=== PATIENT | male | born 1970 | race Caucasian/White ===

== ENCOUNTER 2018-03-15 18:22 | Emergency (ER) | END 2018-03-15 23:40 | disposition home or self-care (01) ==

== ENCOUNTER 2018-04-14 14:50 | Emergency (ER) | END 2018-04-14 19:29 | disposition home or self-care (01) ==

== ENCOUNTER 2018-05-30 15:15 | Emergency (ER) | END 2018-05-30 20:38 | disposition home or self-care (01) ==

== ENCOUNTER 2019-01-28 15:52 | Inpatient (IN) | payer MEDICARE, OTHER ==
[~2019-01-28] VITALS: Ht 175.3 cm; Wt 62.6 kg
[~2019-01-28 15:52] MED LIST: AMIT10TA6 PO; BACL20TA PO; CLON-379 PO; DIAZ5TAB4 PO; DIC20 PO; FOLI-49 PO; METH150T PO; MIDO5TAB PO; NALO25TA PO; ONDA4TAB8 PO; PLEC3TAB PO; PREG50CA PO; TIZA4TAB PO
--- NOTE | 2019-01-28 16:20 | ERD ---
ER Documentation Chief Complaint Chief Complaint chronic mid abdominal pain cramping HPI 48-year-old male with paraplegia urostomy presenting for acute on chronic abdominal pain. He states that he is having burning pain in his abdomen and his back. Usually when this happens, he has a UTI. He was recently hospitalized last month for a UTI at [facility]. His primary care doctor is Dr. Barnett. No associated fever, chills, nausea, vomiting, diarrhea. He does have more cloudy urine than usual. His pain is a 9 out of 10, all over his body, with no alleviating or exacerbating factors. ROS All systems reviewed and are negative except as per history of present illness. Medications Home Meds Reported Medications Amitriptyline Hcl* (Amitriptyline Hcl*) 10 Mg Tablet, 30 MG PO QHS, #60 TAB 01/28/19 Amitriptyline Hcl* (Amitriptyline Hcl*) 10 Mg Tablet, 10 MG PO QAM, #30 TAB 01/28/19 Promethazine Hcl* (Phenergan*) 25 Mg Tablet, 25 MG PO QHS, TAB 01/28/19 Midodrine* (Midodrine*) 5 Mg Tablet, 5 MG PO DAILY, TAB 01/28/19 Clonidine Hcl* (Clonidine Hcl*) 0.2 Mg Tablet, 0.2 MG PO Q8H, TAB 01/28/19 Tizanidine Hcl* (Tizanidine Hcl*) 4 Mg Capsule, 4 MG PO Q8H PRN for SPASTICITY, CAP 01/28/19 Pantoprazole* (Pantoprazole*) 40 Mg Tablet.dr, 40 MG PO AC BREAKFAST, TAB 01/28/19 Plecanatide (Trulance) 3 Mg Tablet, 3 MG PO DAILY, TAB 01/28/19 Hydromorphone Hcl* (Dilaudid*) 4 Mg Tablet, 4 MG PO Q6H PRN for PAIN, TAB 01/28/19 Diazepam* (Diazepam*) 5 Mg Tablet, 5 MG PO QID, TAB 01/28/19 Ondansetron Hcl* (Zofran*) 4 Mg Tab, 4 MG PO NEEDED PRN for NAUSEA AND OR V OMITING, TAB 01/28/19 Discontinued Reported Medications Plecanatide (Trulance) 3 Mg Tablet, 3 MG PO DAILY, TAB 05/30/18 Naloxegol Oxalate (Movantik) 25 Mg Tablet, 25 MG PO DAILY, TAB 04/14/18 Tizanidine Hcl* (Tizanidine Hcl*) 4 Mg Tablet, 4 MG PO Q8H PRN for SPASTICITY, TAB 03/15/18 Clonidine Hcl* (Clonidine Hcl*) 0.1 Mg Tab, 0.1 MG PO TID, TAB 03/15/18 Folic Acid* (Folic Acid*) 1 Mg Tablet, 1 MG PO DAILY, TAB 03/15/18 Diazepam* (Diazepam*) 5 Mg Tablet, 5 MG PO QID, TAB TAKE 1 OR 2 TAB 03/15/18 Amitriptyline Hcl* (Amitriptyline Hcl*) 10 Mg Tablet, 30 MG PO QHS, #60 TAB 03/15/18 Amitriptyline Hcl* (Amitriptyline Hcl*) 10 Mg Tablet, 10 MG PO QAM, #30 TAB 03/15/18 Pregabalin* (Lyrica*) 50 Mg Capsule, 50 MG PO TID, CAP 03/15/18 Ondansetron Hcl* (Zofran*) 4 Mg Tablet, 4 MG PO Q8, TAB 03/15/18 Dicyclomine HCl (Dicyclomine HCl) 20 Mg Tablet, 20 MG PO Q6H 03/15/18 Midodrine* (Midodrine*) 5 Mg Tablet, 10 MG PO TID, TAB 03/15/18 Baclofen* (Baclofen*) 20 Mg Tablet, 20 MG PO Q8, TAB 03/15/18 Methylnaltrexone [place] (Relistor) 150 Mg Tablet, 600 MG PO DAILY, TAB TAKE IF MOVANTIK DOESN'T HELP 03/15/18 Allergies Allergies: Coded Allergies: metoclopramide HCl (Verified Allergy, Severe, 01/28/19) panic attack PMhx/Soc History of Surgery: Yes (NECK FUSION, UROSTOMY, BLADDER AUGMENTATION, LEFT HIP, RIGHT FEMUR SX) Anesthesia Reaction: No Hx Neurological Disorder: Yes (QUADRAPLAGIA) Hx Respiratory Disorders: No Hx Cardiac Disorders: No Hx Psychiatric Problems: Yes (ANXIETY, DEPRESSION) Hx Miscellaneous Medical Probl: Yes Hx Alcohol Use: No Hx Substance Use: No Hx Tobacco Use: No FmHx Family History: No diabetes Physical Exam Vitals Vital Signs Date Temp Pulse Resp B/P (MAP) Pulse Ox O2 O2 Flow FiO2 Time Delivery Rate 01/28/19 76 19 144/91 98 Room Air 18:30 (108) 01/28/19 98.1 88 20 145/94 99 15:57 (111) Physical Exam Const: Appears to be in distress secondary to pain, nontoxic Head: Atraumatic Eyes: Normal Conjunctiva ENT: Normal External Ears, Nose and Mouth. Neck: Full range of motion. No meningismus. Resp: Clear to auscultation bilaterally Cardio: Regular rate and rhythm, no murmurs Abd: Colostomy in the left lower quadrant with brown stool. Urostomy in the right lower quadrant, no surrounding erythema, draining clear yellow urine with sediment. Soft, non tender, non distended. Normal bowel sounds Skin: No petechiae or rashes Back: No midline or flank tenderness Ext: No cyanosis, or edema Neur: Awake and alert Psych: Normal Mood and Affect Result Diagram: 01/28/19 1650 01/28/19 1650 Results 24 hrs Laboratory Tests Test 01/28/19 16:50 01/28/19 18:07 White Blood Count 5.3 10^3/ul Red Blood Count 4.17 10^6/ul Hemoglobin 12.3 g/dl Hematocrit 38.0 % Mean Corpuscular Volume 91.1 fl Mean Corpuscular Hemoglobin 29.5 pg Mean Corpuscular Hemoglobin Concent 32.4 g/dl Red Cell Distribution Width 14.9 % Platelet Count 185 10^3/UL Mean Platelet Volume 10.5 fl Immature Granulocytes % 0.400 % Neutrophils % 62.9 % Lymphocytes % 24.0 % Monocytes % 11.2 % Eosinophils % 0.9 % Basophils % 0.6 % Nucleated Red Blood Cells % 0.0 /100WBC Immature Granulocytes # 0.020 10^3/ul Neutrophils # 3.4 10^3/ul Lymphocytes # 1.3 10^3/ul Monocytes # 0.6 10^3/ul Eosinophils # 0.1 10^3/ul Basophils # 0.0 10^3/ul Nucleated Red Blood Cells # 0.0 10^3/ul Sodium Level 142 mmol/L Potassium Level 4.4 mmol/L Chloride Level 105 mmol/L Carbon Dioxide Level 27 mmol/L Anion Gap 10 Blood Urea Nitrogen 12 mg/dl Creatinine 0.43 mg/dl Est Glomerular Filtrat Rate mL/min > 60 mL/min Glucose Level 98 mg/dl Calcium Level 9.6 mg/dl Total Bilirubin 0.6 mg/dl Direct Bilirubin 0.00 mg/dl Indirect Bilirubin 0.6 mg/dl Aspartate Amino Transf (AST/SGOT) 16 IU/L Alanine Aminotransferase (ALT/SGPT) 15 IU/L Alkaline Phosphatase 96 IU/L Total Protein 7.7 g/dl Albumin 4.2 g/dl Globulin 3.50 g/dl Albumin/Globulin Ratio 1.20 Lipase 27 U/L Urine Color YELLOW Urine Clarity CLOUDY Urine pH 8.0 Urine Specific Simms 1.009 Urine Ketones NEGATIVE mg/dL Urine Nitrite POSITIVE mg/dL Urine Bilirubin NEGATIVE mg/dL Urine Urobilinogen NEGATIVE mg/dL Urine Leukocyte Esterase 1+ Sherri/ul Urine Microscopic RBC 3 /HPF Urine Microscopic WBC 14 /HPF Urine Bacteria MODERATE /HPF Urine Hemoglobin NEGATIVE mg/dL Urine Glucose NEGATIVE mg/dL Urine Total Protein 1+ mg/dl Current Medications Medications Dose Sig/Karine Start Time Status Last (Trade) Ordered Route PRN Stop Time Admin Dose Reason Admin 4 mg ONCE ONCE 01/28/19 DC 01/28/19 Hydromorphone PO 18:00 01/28/19 18:41 HCl 18:01 (Dilaudid) Cefepime HCl 50 ml @ ONCE ONCE 01/28/19 DC 01/28/19 100 mls/hr IVPB 19:30 01/28/19 19:26 19:59 Ondansetron 4 mg BRIDGE ORDER 01/28/19 HCl (Zofran PRN IV 19:30 01/29/19 Inj) NAUSEA/VOMITI 19:29 NG 650 mg ER BRIDGE 01/28/19 Acetaminophen PRN PO 19:30 01/29/19 (Tylenol .MILD PAIN 19:29 Tab) 1-3 OR TEMP Procedures/MDM EMERGENT LABS AND DIAGNOSTIC STUDIES: Lab Results above were reviewed and interpreted by me. CBC: no anemia or evidence of infection CMP: No evidence of clinically significant electrolyte abnormality, acidosis, renal failure, hypoglycemia, liver disease, or biliary obstruction UA shows evidence of acute UTI Initial Nursing notes reviewed. Previous Medical Records requested via the Electronic Health Record. EMERGENCY DEPARTMENT COURSE / MEDICAL DECISION MAKING: Patient presents with acute on chronic abdominal pain and feels that he has a UTI. He is afebrile with stable vitals. No evidence of severe sepsis or septic shock. UA shows signs of UTI. Patient started on IV antibiotics based on previous microbiology reports. I spoke with Dr. Barnett, his primary care provider, who will admit him for IV antibiotics until cultures and sensitivities return Accepting Care Team: Current data and ongoing care discussed. Time: Time of admission Primary Provider: Dr. Barnett Departure Diagnosis: Primary Impression: Complicated UTI (urinary tract infection) Condition: VONDA Kennedy MD Jan 28, 2019 16:20
[2019-01-28] MEDS ORDERED: ONDA4TAB13 PO (17:14)
[2019-01-28] MEDS ORDERED: DIAZ5TAB4 PO (17:15)
[2019-01-28] MEDS ORDERED: HYDR4TAB51 PO (17:15)
[2019-01-28] MEDS ORDERED: PLEC3TAB PO (17:16)
[2019-01-28] MEDS ORDERED: PANT40TA4 PO (17:16)
[2019-01-28] MEDS ORDERED: TIZA4CAP6 PO (17:17)
[2019-01-28] MEDS ORDERED: CLON0.2T5 PO (17:17)
[2019-01-28] MEDS ORDERED: MIDO5TAB PO (17:18)
[2019-01-28] MEDS ORDERED: PROM25TA14 PO (17:19)
[2019-01-28] MEDS ORDERED: AMIT10TA6 PO ×2 (17:20)
[2019-01-28] MEDS ORDERED: HYDROmorphONE 4 MG TAB PO ONE (18:00)
[2019-01-28] MEDS ORDERED: ONDANSETRON 4 MG INJ IV PRN (19:30)
[2019-01-28] MEDS ORDERED: CEFEPIME 1GM/50 ML (PMX) 50 ML IVPB ONE (19:30)
[2019-01-28] MEDS ORDERED: ACETAMINOPHEN 325 MG TAB PO PRN (19:30)
[2019-01-28 21:30] VITALS: BP 158/86; PULSE 72; RESP 18
[2019-01-28 22:04] VITALS: Ht 175.3 cm; Wt 62.6 kg
[2019-01-28] MEDS ORDERED: HYDROmorphONE 0.5 MG/0.5 ML SYG IV PRN (23:00)
[2019-01-28] MEDS ORDERED: HYDROmorphONE 4 MG TAB PO PRN (23:00)
[2019-01-28] MEDS: SOD CHLORIDE 0.9% 1,000 ML IV SCH (23:50)
[2019-01-28] MEDS: DIAZEPAM 5 MG TAB PO SCH (23:50)
[2019-01-29] MEDS: ONDANSETRON 4 MG TAB PO PRN ×2 (00:12→06:35)
[2019-01-29] MEDS: TIZANIDINE 4 MG TAB PO PRN ×3 (01:12→22:16)
[2019-01-29] MEDS: HYDROmorphONE 1 MG/ML SYG IV PRN ×4 (02:12→20:05)
[2019-01-29 02:50] VITALS: BP 114/80; PULSE 74; RESP 18
[2019-01-29] MEDS: ACETAMINOPHEN 325 MG TAB PO PRN (05:33)
[2019-01-29] MEDS: PANTOPRAZOLE (EC) 40 MG TAB PO SCH (06:35)
[2019-01-29 08:03] VITALS: BP 147/89; PULSE 63; RESP 15
[2019-01-29] MEDS: LUBIPROSTONE 24 MCG CAP PO SCH ×2 (08:26→20:20)
[2019-01-29] MEDS: BISACODYL (EC) 5 MG TAB PO SCH ×2 (08:26→20:06)
[2019-01-29] MEDS: CEFEPIME 1GM/50 ML (PMX) 50 ML IVPB SCH ×2 (08:26→20:07)
[2019-01-29] MEDS: DIAZEPAM 5 MG TAB PO SCH ×4 (08:26→20:05)
[2019-01-29] MEDS: AMITRIPTYLINE 10 MG TAB PO SCH ×2 (08:27→20:06)
[2019-01-29] MEDS: POLYETHYLENE GLYCOL 17 GM PACKET PO SCH ×2 (08:28→20:20)
[2019-01-29] MEDS: MIDODRINE 5 MG TAB PO SCH (08:33)
[2019-01-29] MEDS: TRULANCE 3 MG PO SCH (09:00)
[2019-01-29] MEDS ORDERED: BISACODYL (EC) 5 MG TAB PO ONE (09:00)
[2019-01-29] MEDS ORDERED: PLECANATIDE 3 MG PO SCH (09:00)
[2019-01-29] MEDS: HYDROmorphONE 2 MG TAB PO PRN ×2 (10:00→16:34)
[2019-01-29 13:56] VITALS: BP 120/67; PULSE 65; RESP 16
--- NOTE | 2019-01-29 15:13 | QN ---
Documentation Comment seen and examined LILLY SIDDIQI MD Jan 29, 2019 15:13
--- NOTE | 2019-01-29 17:37 | CONS ---
DATE OF ADMISSION: 01/28/2019 DATE OF CONSULTATION: 01/29/2019 TYPE OF CONSULTATION: Infectious Disease. REASON FOR CONSULTATION: Antibiotic management. HISTORY OF PRESENT ILLNESS: Robert Beasley is a 48-year-old male with a history of paraplegia, who co mes in with chronic mid abdominal pain and cramping. PAST PROBLEMS INCLUDE: 1. Paraplegia. 2. Urostomy. 3. Neck fusion. 4. Surgery to the left hip and also to the right femur. The patient had bladder augmentation. He is a quadriplegic or paraplegic. He has anxiety and depres av. Acutely, the patient comes in with burning pain in his abdomen and back ____ UTI. He was hospitalize d last month for UTI at [facility]. His primary doctor is Dr. Barnett. He has no feve r or chills. He has cloudy urine. Pain is 9/10. PAST MEDICAL HISTORY: As outlined. FAMILY HISTORY: Noncontributory. SOCIAL HISTORY: Does not smoke, drink or abuse drugs. ALLERGIES: METOCLOPRAMIDE. MEDICATIONS: Per chart. REVIEW OF SYSTEMS: The patient does have panic attacks. PHYSICAL EXAMINATION: GENERAL: The patient is a well-developed, well-nourished male who is awake, responsive, in no acute distress. VITAL SIGNS: Stable. He is afebrile. SKIN: Without generalized rash. HEENT: Within normal limits. NECK: Supple. LYMPH NODES: None palpable. CHEST: Decreased breath sounds at the bases. HEART: Without murmur or gallop. ABDOMEN: He has a colostomy in left lower quadrant. He has a urostomy in the right lower quadrant w ithout surrounding erythema, without organosplenomegaly or masses. EXTREMITIES: Without cyanosis, clubbing, or edema. RECTAL AND GENITAL: Deferred. NEUROLOGIC: The patient is paraplegic. ANCILLARY LABORATORY DATA: White count 5.3, H and H 12.3 and 38, platelet count 185,000. BUN and cr eatinine 12/0.43. HOSPITAL COURSE: Patient grew out gram-negative rods from the urine. Currently on cefepime 1 gram q .12. Urine culture is pending. No blood cultures were done. We will continue him on current therap y. I will dictate my findings to Dr. Navarrete. Of note, the urine is positive for nitrite and leukocy te esterase with 14 white cells per high-power field. Dictated By: ZAHRAA SOTO MD, JD/WILLIAM Conf#: [id number] DID#: [id number]
--- NOTE | 2019-01-29 17:53 | HP ---
DATE OF ADMISSION: 01/28/2019 REASON FOR ADMISSION: Abdominal pain. HISTORY OF PRESENTING ILLNESS: This is a 48-year-old male with a past medical history of quadripares is, bedridden state, hip fracture, knee fracture in the past, history of ileostomy, anxiety, depressi on, chronic pain syndrome, insomnia, history of multiple admissions in the past secondary to UTI wher e the patient had a recent admission in [place] in December secondary to UTI. He presented to the emergency department complaining of severe abdominal pain and muscle cramps for t he past few days. 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 They have noticed his urine to be more cloudy than usual. He is having severe abdominal pain and having nausea. His colos dilcia has been draining well and came to the emergency department for further evaluation. On admission, vital signs show a temperature of 98.1, pulse 88, respirations 20, blood pressure 145/9 4, saturating 99%. White count of 5.3. UA had shown positive nitrite, 1+ leukocyte esterase, 14 wbc 's. The patient was admitted for further management. PAST MEDICAL HISTORY: 1. History of quadriparesis. 2. Bedbound state. 3. History of multiple UTIs. 4. Autonomic dysreflexia. 5. Labile hypertension. 6. GERD. 7. History of constipation. ALLERGY HISTORY: REGLAN. SOCIAL HISTORY: Negative. FAMILY HISTORY: Negative. MEDICATIONS: At home, patient takes medications. 1. Promethazine 25 mg p.o. at bedtime. 2. Midodrine 5 daily. 3. Tizanidine. 4. Clonidine 0.2 q.8. 5. Amitriptyline. 6. Diazepam 5 mg q.i.d. 7. Dilaudid 4 mg p.o. q.6. 8. Zofran. 9. Protonix. 10. Trulance. REVIEW OF SYSTEMS: The patient complains of severe bladder spasm. The patient has ileostomy in plac e and also has a colostomy in place. He had some cloudy drainage through the ileostomy. The patient denies any headache, any blurry vision. The patient is very anxious. He denies any hematemesis, an y melena, any blood per rectum. PHYSICAL EXAMINATION: VITAL SIGNS: Currently, blood pressure 120/67, temperature 97.0, pulse 65, saturating 96% on room ai r. GENERAL: The patient is awake, alert, oriented. He appears to be in mild distress secondary to pain . HEENT: Pupils equal, round, reactive to light. NECK: Supple. LUNGS: Clear to auscultation bilaterally. HEART: Regular rhythm. ABDOMEN: The patient has ileostomy in the right lower quadrant, draining well. He also has a colost saman with a bag, draining well. GENITOURINARY: The patient has frequent bladder spasms. EXTREMITIES: The patient has contracted extremities. NEUROLOGIC: The patient is awake, alert, oriented and able to answer all questions appropriately. DIAGNOSTIC DATA: BMP within normal limit. White count of 5.3, hemoglobin 12.3, platelet count 185. UA shows positive nitrite, 14 wbc's. ASSESSMENT: This is a 48-year-old male presenting with: 1. Recurrent urinary tract infection. The patient has history of recurrent urinary tract infections in the past. Drain through the ileostomy. The patient had multidrug-resistant urinary tract infect ion in the past. 2. Pain control with bladder spasm. 3. Autonomic dysreflexia. 4. Bedbound state. 5. History of quadriplegia. 6. Labile hypertension. 7. Depression. 8. Anxiety. 9. Gastroesophageal reflux disease. PLAN: At this period of time, patient is admitted to med/surg. The patient will be continued on Dil audid IV for pain control and Dilaudid p.o. The patient is also started on cefepime. Urine cultures have been pending. ID has been consulted. Pain Management will also be consulted. Rest of the ana laura atment will depend on the patient's hospitalization course. Dictated By: LILLY SMITH/WILLIAM Conf#: [id number] DID#: [id number] CC: BRYANT LEWIS MD;*EndCC*
[2019-01-29 19:29] VITALS: BP 111/75; PULSE 85; RESP 18
[2019-01-29] MEDS: PROMETHAZINE 25 MG TAB PO SCH (20:06)
[2019-01-29] MEDS: SOD CHLORIDE 0.9% 1,000 ML IV SCH (23:00)
[2019-01-30] MEDS: HYDROmorphONE 1 MG/ML SYG IV PRN ×6 (00:07→20:43)
[2019-01-30] MEDS: ACETAMINOPHEN 325 MG TAB PO PRN (01:56)
[2019-01-30] MEDS: SOD CHLORIDE 0.9% 1,000 ML IV SCH (01:57)
[2019-01-30 02:04] VITALS: BP 135/88; PULSE 81; RESP 18
[2019-01-30] MEDS: ONDANSETRON 4 MG TAB PO PRN (05:40)
[2019-01-30] MEDS: PANTOPRAZOLE (EC) 40 MG TAB PO SCH (06:28)
[2019-01-30] MEDS: TIZANIDINE 4 MG TAB PO PRN (07:55)
[2019-01-30] MEDS: TRULANCE 3 MG PO SCH (08:12)
[2019-01-30] MEDS: LUBIPROSTONE 24 MCG CAP PO SCH ×2 (08:12→20:42)
[2019-01-30] MEDS: BISACODYL (EC) 5 MG TAB PO SCH ×2 (08:12→20:43)
[2019-01-30] MEDS: MIDODRINE 5 MG TAB PO SCH (08:12)
[2019-01-30] MEDS: POLYETHYLENE GLYCOL 17 GM PACKET PO SCH ×3 (08:12→21:00)
[2019-01-30] MEDS: DIAZEPAM 5 MG TAB PO SCH ×4 (08:12→20:43)
[2019-01-30] MEDS: AMITRIPTYLINE 10 MG TAB PO SCH ×2 (08:12→20:43)
[2019-01-30] MEDS: CEFEPIME 1GM/50 ML (PMX) 50 ML IVPB SCH ×2 (08:17→20:55)
[2019-01-30] MEDS: HYDROmorphONE 2 MG TAB PO PRN ×2 (09:59→18:06)
--- NOTE | 2019-01-30 11:32 | CONS ---
Consultation Date/Type/Reason Admit Date/Time Jan 29, 2019 at 16:47 Date/Time of Note DATE: 01/30/19 TIME: 11:07 Hx of Present Illness DictATED HISTORY AND PHYSICAL DICTATION DOWN Past Medical History Home Meds Reported Medications Amitriptyline Hcl* (Amitriptyline Hcl*) 10 Mg Tablet, 30 MG PO QHS, #60 TAB 01/28/19 Amitriptyline Hcl* (Amitriptyline Hcl*) 10 Mg Tablet, 10 MG PO QAM, #30 TAB 01/28/19 Promethazine Hcl* (Phenergan*) 25 Mg Tablet, 25 MG PO QHS, TAB 01/28/19 Midodrine* (Midodrine*) 5 Mg Tablet, 5 MG PO DAILY, TAB 01/28/19 Clonidine Hcl* (Clonidine Hcl*) 0.2 Mg Tablet, 0.2 MG PO Q8H, TAB 01/28/19 Tizanidine Hcl* (Tizanidine Hcl*) 4 Mg Capsule, 4 MG PO Q8H PRN for SPASTICITY, CAP 01/28/19 Pantoprazole* (Pantoprazole*) 40 Mg Tablet.dr, 40 MG PO AC BREAKFAST, TAB 01/28/19 Plecanatide (Trulance) 3 Mg Tablet, 3 MG PO DAILY, TAB 01/28/19 Hydromorphone Hcl* (Dilaudid*) 4 Mg Tablet, 4 MG PO Q6H PRN for PAIN, TAB 01/28/19 Diazepam* (Diazepam*) 5 Mg Tablet, 5 MG PO QID, TAB 01/28/19 Ondansetron Hcl* (Zofran*) 4 Mg Tab, 4 MG PO NEEDED PRN for NAUSEA AND OR VOMITING, TAB 01/28/19 Discontinued Reported Medications Plecanatide (Trulance) 3 Mg Tablet, 3 MG PO DAILY, TAB 05/30/18 Naloxegol Oxalate (Movantik) 25 Mg Tablet, 25 MG PO DAILY, TAB 04/14/18 Tizanidine Hcl* (Tizanidine Hcl*) 4 Mg Tablet, 4 MG PO Q8H PRN for SPASTICITY, TAB 03/15/18 Clonidine Hcl* (Clonidine Hcl*) 0.1 Mg Tab, 0.1 MG PO TID, TAB 03/15/18 Folic Acid* (Folic Acid*) 1 Mg Tablet, 1 MG PO DAILY, TAB 03/15/18 Diazepam* (Diazepam*) 5 Mg Tablet, 5 MG PO QID, TAB TAKE 1 OR 2 TAB 03/15/18 Amitriptyline Hcl* (Amitriptyline Hcl*) 10 Mg Tablet, 30 MG PO QHS, #60 TAB 03/15/18 Amitriptyline Hcl* (Amitriptyline Hcl*) 10 Mg Tablet, 10 MG PO QAM, #30 TAB 03/15/18 Pregabalin* (Lyrica*) 50 Mg Capsule, 50 MG PO TID, CAP 03/15/18 Ondansetron Hcl* (Zofran*) 4 Mg Tablet, 4 MG PO Q8, TAB 03/15/18 Dicyclomine HCl (Dicyclomine HCl) 20 Mg Tablet, 20 MG PO Q6H 03/15/18 Midodrine* (Midodrine*) 5 Mg Tablet, 10 MG PO TID, TAB 03/15/18 Baclofen* (Baclofen*) 20 Mg Tablet, 20 MG PO Q8, TAB 03/15/18 Methylnaltrexone [place] (Relistor) 150 Mg Tablet, 600 MG PO DAILY, TAB TAKE IF MOVANTIK DOESN'T HELP 03/15/18 Medications Current Medications Amitriptyline HCl (Elavil) 10 mg QAM PO Last administered on 01/30/19at 08:12; Admin Dose 10 MG; Start 01/29/19 at 09:00 Amitriptyline HCl (Elavil) 30 mg QHS PO Last administered on 01/29/19at 20:06; Admin Dose 30 MG; Start 01/29/19 at 21:00 Clonidine (Catapres) 0.2 mg Q8H PRN PO ELEVATED BLOOD PRESSURE Last administered on 01/30/19 07:55; Admin Dose 0.2 MG; Start 01/28/19 at 23:00 Diazepam (Valium) 5 mg QID PO Last administered on 01/30/19 08:12; Admin Dose 5 MG; Start 01/28/19 at 23:00 Midodrine (Proamatine) 5 mg DAILY PO ; Start 01/29/19 at 09:00 Ondansetron HCl (Zofran Tab) 4 mg Q6 PRN PO NAUSEA AND/OR VOMITING Last administered on 01/30/19at 05:40; Admin Dose 4 MG; Start 01/28/19 at 23:00 Pantoprazole (Protonix Tab) 40 mg AC BREAKFAST PO Last administered on 01/30/19 06:28; Admin Dose 40 MG; Start 01/29/19 at 07:00 Promethazine HCl (Phenergan) 25 mg QHS PO Last administered on 01/29/19 20:06; Admin Dose 25 MG; Start 01/29/19 at 21:00 Tizanidine HCl (Zanaflex) 4 mg Q8H PRN PO SPASTICITY Last administered on 01/30/19 07:55; Admin Dose 4 MG; Start 01/28/19 at 23:00 Acetaminophen (Tylenol Tab) 650 mg Q6H PRN PO MILD PAIN(1-3)OR ELEVATED TEMP Last administered on 01/30/19 01:56; Admin Dose 650 MG; Start 01/28/19 at 23:00 Lubiprostone (Amitiza) 24 mcg BID PO Last administered on 01/30/19 08:12; Admin Dose 24 MCG; Start 01/29/19 at 09:00 Polyethylene Glycol (Miralax) 17 gm BID PO Last administered on 01/29/19 08:28; Admin Dose 17 GM; Start 01/29/19 at 09:00 Cefepime HCl 50 ml @ 100 mls/hr Q12 IVPB Last administered on 01/30/19 08:17; Admin Dose 100 MLS/HR; Start 01/29/19 at 09:00 Sodium Chloride 1,000 ml @ 40 mls/hr Q24H IV Last administered on 01/30/19 01:57; Admin Dose 40 MLS/HR; Start 01/28/19 at 23:00 Bisacodyl (Dulcolax) 10 mg BID PO Last administered on 01/29/19 20:06; Admin Dose 10 MG; Start 01/29/19 at 09:00 Hydromorphone HCl (Dilaudid) 4 mg Q6H PRN PO PAIN LEVEL 4-6 Last administered on 01/30/19 09:59; Admin Dose 4 MG; Start 01/28/19 at 23:20 Non-Formulary Medication 1 ea DAILY PO Last administered on 01/30/19 08:12; Admin Dose 1 EA; Start 01/29/19 at 09:00 Hydromorphone HCl (Dilaudid) 1 mg Q4H PRN IV SEVERE PAIN LEVEL 7-10 Last administered on 01/30/19 08:13; Admin Dose 1 MG; Start 01/29/19 at 15:30 Allergies: Coded Allergies: metoclopramide HCl (Verified Allergy, Severe, 01/28/19) panic attack Social History Smoking Status: Never smoker Exam/Review of Systems Exam Vitals Vital Signs Date Temp Pulse Resp B/P (MAP) Pulse Ox O2 O2 Flow FiO2 Time Delivery Rate 01/30/19 97.7 81 18 135/88 98 02:04 (104) 01/29/19 Room Air 13:56 Intake and Output 01/29/19 01/29/19 01/30/19 1515:00 23:00 07:00 IntakeIntake Total 50 ml 160 ml OutputOutput Total 400 ml 600 ml 800 ml BalanceBalance -400 ml -550 ml -640 ml Results Result Diagram: 01/28/19 1650 01/29/19 1424 Results 24hrs Laboratory Tests Test 01/29/19 14:24 Sodium Level 141 Potassium Level 4.7 Chloride Level 109 Carbon Dioxide Level 21 Anion Gap 11 Blood Urea Nitrogen 12 Creatinine 0.38 L Est Glomerular Filtrat Rate mL/min > 60 Glucose Level 60 #L Calcium Level 9.5 Total Bilirubin 0.8 Direct Bilirubin 0.00 Indirect Bilirubin 0.8 Aspartate Amino Transf (AST/SGOT) 29 # Alanine Aminotransferase (ALT/SGPT) 12 L Alkaline Phosphatase 83 Total Protein 7.5 Albumin 4.1 Globulin 3.40 H Albumin/Globulin Ratio 1.20 Medications Medication Current Medications Amitriptyline HCl (Elavil) 10 mg QAM PO Last administered on 01/30/19at 08:12; Admin Dose 10 MG; Start 01/29/19 at 09:00 Amitriptyline HCl (Elavil) 30 mg QHS PO Last administered on 01/29/19at 20:06; Admin Dose 30 MG; Start 01/29/19 at 21:00 Clonidine (Catapres) 0.2 mg Q8H PRN PO ELEVATED BLOOD PRESSURE Last administered on 01/30/19at 07:55; Admin Dose 0.2 MG; Start 01/28/19 at 23:00 Diazepam (Valium) 5 mg QID PO Last administered on 01/30/19 08:12; Admin Dose 5 MG; Start 01/28/19 at 23:00 Midodrine (Proamatine) 5 mg DAILY PO ; Start 01/29/19 at 09:00 Ondansetron HCl (Zofran Tab) 4 mg Q6 PRN PO NAUSEA AND/OR VOMITING Last admi nistered on 01/30/19 05:40; Admin Dose 4 MG; Start 01/28/19 at 23:00 Pantoprazole (Protonix Tab) 40 mg AC BREAKFAST PO Last administered on 01/30/19 06:28; Admin Dose 40 MG; Start 01/29/19 at 07:00 Promethazine HCl (Phenergan) 25 mg QHS PO Last administered on 01/29/19 20:06; Admin Dose 25 MG; Start 01/29/19 at 21:00 Tizanidine HCl (Zanaflex) 4 mg Q8H PRN PO SPASTICITY Last administered on 01/30/19 07:55; Admin Dose 4 MG; Start 01/28/19 at 23:00 Acetaminophen (Tylenol Tab) 650 mg Q6H PRN PO MILD PAIN(1-3)OR ELEVATED TEMP Last administered on 01/30/19 01:56; Admin Dose 650 MG; Start 01/28/19 at 23:00 Lubiprostone (Amitiza) 24 mcg BID PO Last administered on 01/30/19 08:12; Admin Dose 24 MCG; Start 01/29/19 at 09:00 Polyethylene Glycol (Miralax) 17 gm BID PO Last administered on 01/29/19 08:28; Admin Dose 17 GM; Start 01/29/19 at 09:00 Cefepime HCl 50 ml @ 100 mls/hr Q12 IVPB Last administered on 01/30/19 08:17; Admin Dose 100 MLS/HR; Start 01/29/19 at 09:00 Sodium Chloride 1,000 ml @ 40 mls/hr Q24H IV Last administered on 01/30/19 01:57; Admin Dose 40 MLS/HR; Start 01/28/19 at 23:00 Bisacodyl (Dulcolax) 10 mg BID PO Last administered on 01/29/19 20:06; Admin Dose 10 MG; Start 01/29/19 at 09:00 Hydromorphone HCl (Dilaudid) 4 mg Q6H PRN PO PAIN LEVEL 4-6 Last administered on 01/30/19 09:59; Admin Dose 4 MG; Start 01/28/19 at 23:20 Non-Formulary Medication 1 ea DAILY PO Last administered on 01/30/19 08:12; Admin Dose 1 EA; Start 01/29/19 at 09:00 Hydromorphone HCl (Dilaudid) 1 mg Q4H PRN IV SEVERE PAIN LEVEL 7-10 Last administered on 01/30/19at 08:13; Admin Dose 1 MG; Start 01/29/19 at 15:30 OTIS PONCE Jan 30, 2019 11:18
[2019-01-30] MEDS: PHENAZOPYRIDINE 200 MG TAB PO SCH ×2 (12:12→20:43)
[2019-01-30 14:00] VITALS: BP 94/61; PULSE 90; RESP 18
--- NOTE | 2019-01-30 15:04 | CONS ---
DATE OF ADMISSION: 01/29/2019 DATE OF CONSULTATION: 01/30/2019 REFERRING PHYSICIAN: Gayathri Navarrete MD REASON FOR CONSULTATION: Pain control. HISTORY OF PRESENT ILLNESS: Most of the information was taken from the patient's medical records. T he patient is in pain right now and is somewhat a poor historian. He was admitted to [facility], [facility] treatment of urinary tract infection. This admission was secondary to severe abdominal disco mfort which was associated with muscle cramps which on workup so far is secondary to urinary tract in fection. The patient's white blood cell count was normal on admission. Vital signs were all normal on admission also. The patient states he has had these recurrent bladder infections which are associ ated with spasm and abdominal discomfort. 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 ALLERGIES: REGLAN. MEDICATIONS: Please refer to reconciliation sheet. MAJOR MEDICAL PROBLEMS: As per history of present illness. PAST MEDICAL HISTORY: History of GERD, incomplete quadriplegia, anxiety syndrome, depression, recurr ent urinary tract infections, bladder spasm. PAST SURGICAL HISTORY: Incomplete database. SOCIAL HISTORY: Incomplete database. Alcohol: None. Smoking. Never. Drug use: None. OBJECTIVE: GENERAL: This is a 48-year-old gentleman who appears to be in distress at this time complaining of a bdominal discomfort and spasm, also neck discomfort which he states is secondary to the bed. VITAL SIGNS: Blood pressure 135/88, pulse of 81 and regular, respirations of 18, temperature of 97.7 degrees. HEENT: Head is normocephalic and atraumatic. Anicteric, acyanotic on examination. NECK: Grossly supple. CHEST: Shows bilateral clear breath sounds throughout both lung plasencia. COR: S1, S2 without S3, S4, murmur, gallop, rub. Normal rate, normal rhythm. ABDOMEN: Grossly benign and scaphoid. No organomegaly, masses, tenderness, rebound or peritoneal si gns. EXTREMITIES: Without gross clubbing, cyanosis or edema. Bilateral flexion contractures are noted in both upper extremities. LABORATORY VALUES: No new lab tests today. ASSESSMENT AND PLAN: 1. This gentleman has bladder spasm with abdominal discomfort associated with it. 2. History of incomplete quadriplegia. 3. History of dysreflexia. 4. History of spastic quadriplegia. 5. History of anxiety. 6. History of depression. The patient may be difficult to control with bladder spasm. There is no effective treatment for it o ther than pain control medications in the form of opioids which I really would like to keep down to m inimum secondary to patient's underlying cognitive motor impairment and the likelihood that he may lazo ve some pulmonary side effects associated with it. The current medications he is receiving which may lessen the amount of spasm he is having at this time include Elavil and Valium. Other medications i nclude the use of topical Lidoderm patch as well as Pyridium. I will try those too. I will not bump his opioids at this time and follow his clinical course closely. This patient is not complaining of any other major complaints including further loss of any overall physical functioning. He is not ne gotiating for pain control medications. He denies vomiting, but he states he is nauseous. He states he is not constipated. He has mental cloudiness, sweating, fatigue, drowsiness. The patient has no past medical history of purposefully over sedating on medications. He does not appear to be intoxic ated, unkempt or impaired in any way. He is not requesting increasing opioids or doses decreasing to have higher or more frequent dosing with current opioids prescribed at this time including 4 mg of D ilaudid p.o. q.6 and 1 mg of Dilaudid IV q.6 p.r.n. severe pain. I do not get the impression that he is using pain control medications in response to situational stressors as he is not insisting on cer tain pain control medications and there is no past medical history of alcohol or illicit drug use. W e will follow his course closely. Dictated By: OTIS PONCE MD LP/WILLIAM Conf#: [id number] DID#: [id number] CC: MIRI POLANCO NP; BRYANT LEWIS MD;*EndCC*
--- NOTE | 2019-01-30 16:25 | PN ---
Date/Time of Note Date/Time of Note DATE: 01/30/19 TIME: 16:20 Assessment/Plan VTE Prophylaxis Risk score (from Nsg)>0 risk: 4 SCD applied (from Ns): Yes Pharmacological prophylaxis: NA/contraindicated Pharm contraindication: low risk/ambulating Lines/Catheters IV Catheter Type (from Nrsg): Peripheral IV Assessment/Plan Assessment/Plan is is a 48-year-old male presenting with: 1. Recurrent urinary tract infection. The patient has history of recurrent urinary tract infections in the past. Drain through the ileostomy. The patient had multidrug-resistant urinary tract infection in the past. ucx+GNR 2. Pain control with bladder spasm. 3. Autonomic dysreflexia. 4. Bedbound state. 5. History of incomplete quadriplegia. 6. Labile hypertension. 7. Depression. 8. Anxiety. 9. Gastroesophageal reflux disease. Plan - on iv dillaudid q4, dialudid 4 mg po, zanaflex , valium - pt was seen by Dr Cavanaugh> will fu his recs - cw pyridium - cw iv cefepime - final sucpeitbilities pending - GI/DVT pROPHYLAXIS Discussed pain regimen with him, RN and will talk to his pain managment doc> fu Dr Cavanaugh recs Result Diagram: 01/28/19 1650 01/29/19 1424 Subjective 24 Hr Interval Summary Free Text/Dictation Having bladder spasms. Requesting more iv pain meds Exam/Review of Systems Exam Vitals Vital Signs Date Temp Pulse Resp B/P (MAP) Pulse Ox O2 O2 Flow FiO2 Time Delivery Rate 01/30/19 98.0 90 18 94/61 (72) 98 Room Air 14:00 Intake and Output 01/29/19 01/29/19 01/30/19 1414:59 22:59 06:59 IntakeIntake Total 50 ml 160 ml OutputOutput Total 400 ml 600 ml 800 ml BalanceBalance -400 ml -550 ml -640 ml Exam GENERAL: The patient is awake, alert, oriented. He appears to be in mild distress secondary to pain. HEENT: Pupils equal, round, reactive to light. NECK: Supple. LUNGS: Clear to auscultation bilaterally. HEART: Regular rhythm. ABDOMEN: The patient has ileostomy in the right lower quadrant, draining well. He also has a colostomy with a bag, draining well. GENITOURINARY: The patient has frequent bladder spasms. EXTREMITIES: The patient has contracted extremities. NEUROLOGIC: The patient is awake, alert, oriented and able to answer all questions appropriately. Medications Medication Current Medications Amitriptyline HCl (Elavil) 10 mg QAM PO Last administered on 01/30/19 08:12; Admin Dose 10 MG; Start 01/29/19 at 09:00 Amitriptyline HCl (Elavil) 30 mg QHS PO Last administered on 01/29/19 20:06; Admin Dose 30 MG; Start 01/29/19 at 21:00 Clonidine (Catapres) 0.2 mg Q8H PRN PO ELEVATED BLOOD PRESSURE Last administered on 01/30/19 07:55; Admin Dose 0.2 MG; Start 01/28/19 at 23:00 Diazepam (Valium) 5 mg QID PO Last administered on 01/30/19 12:12; Admin Dose 5 MG; Start 01/28/19 at 23:00 Midodrine (Proamatine) 5 mg DAILY PO ; Start 01/29/19 at 09:00 Ondansetron HCl (Zofran Tab) 4 mg Q6 PRN PO NAUSEA AND/OR VOMITING Last adminis tered on 01/30/19 05:40; Admin Dose 4 MG; Start 01/28/19 at 23:00 Pantoprazole (Protonix Tab) 40 mg AC BREAKFAST PO Last administered on 01/30/19 06:28; Admin Dose 40 MG; Start 01/29/19 at 07:00 Promethazine HCl (Phenergan) 25 mg QHS PO Last administered on 01/29/19 20:06; Admin Dose 25 MG; Start 01/29/19 at 21:00 Tizanidine HCl (Zanaflex) 4 mg Q8H PRN PO SPASTICITY Last administered on 01/30/19 07:55; Admin Dose 4 MG; Start 01/28/19 at 23:00 Acetaminophen (Tylenol Tab) 650 mg Q6H PRN PO MILD PAIN(1-3)OR ELEVATED TEMP Last administered on 01/30/19 01:56; Admin Dose 650 MG; Start 01/28/19 at 23:00 Lubiprostone (Amitiza) 24 mcg BID PO Last administered on 01/30/19 08:12; Admin Dose 24 MCG; Start 01/29/19 at 09:00 Polyethylene Glycol (Miralax) 17 gm BID PO Last administered on 01/29/19 08:28; Admin Dose 17 GM; Start 01/29/19 at 09:00 Cefepime HCl 50 ml @ 100 mls/hr Q12 IVPB Last administered on 01/30/19 08:17; Admin Dose 100 MLS/HR; Start 01/29/19 at 09:00 Sodium Chloride 1,000 ml @ 40 mls/hr Q24H IV Last administered on 01/30/19 01:57; Admin Dose 40 MLS/HR; Start 01/28/19 at 23:00 Bisacodyl (Dulcolax) 10 mg BID PO Last administered on 01/29/19 20:06; Admin Dose 10 MG; Start 01/29/19 at 09:00 Hydromorphone HCl (Dilaudid) 4 mg Q6H PRN PO PAIN LEVEL 4-6 Last administered on 01/30/19 09:59; Admin Dose 4 MG; Start 01/28/19 at 23:20 Non-Formulary Medication 1 ea DAILY PO Last administered on 01/30/19 08:12; Admin Dose 1 EA; Start 01/29/19 at 09:00 Hydromorphone HCl (Dilaudid) 1 mg Q4H PRN IV SEVERE PAIN LEVEL 7-10 Last administered on 01/30/19 16:19; Admin Dose 1 MG; Start 01/29/19 at 15:30 Phenazopyridine HCl (Pyridium) 200 mg TID PO Last administered on 01/30/19 12:12; Admin Dose 200 MG; Start 01/30/19 at 13:00 LILLY SIDDIQI MD Jan 30, 2019 16:24
--- NOTE | 2019-01-30 16:35 | PSY ---
Date/Time of Note Date/Time of Note DATE: 01/30/19 TIME: 16:30 Psychiatric Subjective Eval Consent Pt consented to telemedicine: No Subjective Evaluation Patient location: inpatient Chief Complaint: chronic mid abdominal pain cramping History of present illness Patient is a 48-year-old male with a past medical history of quadriparesis, bedridden state, hip fracture, ileostomy and chronic pain syndrome,. Additionally, patient reports increased pain in his GI, he declined depression declined anxiety states his main issue is pain. Patient's refused medication for depression, and stated " he does not help anyway", explained risk and benefits of medication but patient was very adamant and refused psych meds but continues to demand and increasing his pain medication Past psychiatric history Reports history of depression Hospitalization: other Medical history Problems Medical Problems: (1) Abdominal pain Status: Acute (2) Acute cystitis Status: Acute (3) Anemia Status: Acute (4) Anxiety Status: Acute (5) Anxiety attack Status: Acute (6) Chronic pain Status: Acute (7) Chronic UTI Status: Acute (8) Complicated UTI (urinary tract infection) Status: Acute (9) Dehydration Status: Acute (10) Generalized abdominal pain Status: Acute (11) Hyponatremia Status: Acute (12) Intractable abdominal pain Status: Acute (13) Mild dehydration Status: Acute (14) Nausea Status: Acute (15) Pain Status: Acute (16) PICC (peripherally inserted central catheter) in place Status: Acute (17) Quadriplegia, C5-C7 complete Status: Acute (18) Sacral decubitus ulcer, stage II Status: Acute (19) Sepsis due to urinary tract infection Status: Acute (20) Urinary tract infection Status: Acute (21) UTI (lower urinary tract infection) Status: Acute (22) UTI (urinary tract infection) Status: Acute Allergies: Coded Allergies: metoclopramide HCl (Verified Allergy, Severe, 01/28/19) panic attack Substance Abuse Substance abuse history: No Prior substance abuse treatmen: No Social History Marital status: other DPA/Conservatorship: No Psychiatric Objective Eval Review of Systems: Review of Systems: Not Applicable Physical Examination: Physical Examination: Not Applicable Mental Status Examination: Behavior: Cooperative Speech: Clear Mood: Depressed Though Process: Linear Thought Content: Normal Orientation: x4 Cognition: Alert Insight: Mild Judgement: Mild Attention Span: Distractible Laboratory Results Laboratory Tests Test 01/28/19 16:50 01/28/19 18:07 01/29/19 14:24 White Blood Count 5.3 10^3/ul Red Blood Count 4.17 10^6/ul Hemoglobin 12.3 g/dl Hematocrit 38.0 % Mean Corpuscular Volume 91.1 fl Mean Corpuscular Hemoglobin 29.5 pg Mean Corpuscular 32.4 g/dl Hemoglobin Concent Red Cell Distribution Width 14.9 % Platelet Count 185 10^3/UL Mean Platelet Volume 10.5 fl Immature Granulocytes % 0.400 % Neutrophils % 62.9 % Lymphocytes % 24.0 % Monocytes % 11.2 % Eosinophils % 0.9 % Basophils % 0.6 % Nucleated Red Blood Cells % 0.0 /100WBC Immature Granulocytes # 0.020 10^3/ul Neutrophils # 3.4 10^3/ul Lymphocytes # 1.3 10^3/ul Monocytes # 0.6 10^3/ul Eosinophils # 0.1 10^3/ul Basophils # 0.0 10^3/ul Nucleated Red Blood Cells # 0.0 10^3/ul Sodium Level 142 mmol/L 141 mmol/L Potassium Level 4.4 mmol/L 4.7 mmol/L Chloride Level 105 mmol/L 109 mmol/L Carbon Dioxide Level 27 mmol/L 21 mmol/L Anion Gap 10 11 Blood Urea Nitrogen 12 mg/dl 12 mg/dl Creatinine 0.43 mg/dl 0.38 mg/dl Est Glomerular Filtrat > 60 mL/min > 60 mL/min Rate mL/min Glucose Level 98 mg/dl 60 mg/dl Calcium Level 9.6 mg/dl 9.5 mg/dl Total Bilirubin 0.6 mg/dl 0.8 mg/dl Direct Bilirubin 0.00 mg/dl 0.00 mg/dl Indirect Bilirubin 0.6 mg/dl 0.8 mg/dl Aspartate Amino 16 IU/L 29 IU/L Transf (AST/SGOT) Alanine 15 IU/L 12 IU/L Aminotransferase (ALT/SGPT) Alkaline Phosphatase 96 IU/L 83 IU/L Total Protein 7.7 g/dl 7.5 g/dl Albumin 4.2 g/dl 4.1 g/dl Globulin 3.50 g/dl 3.40 g/dl Albumin/Globulin Ratio 1.20 1.20 Lipase 27 U/L Urine Color YELLOW Urine Clarity CLOUDY Urine pH 8.0 Urine Specific [place] 1.009 Urine Ketones NEGATIVE mg/dL Urine Nitrite POSITIVE mg/dL Urine Bilirubin NEGATIVE mg/dL Urine Urobilinogen NEGATIVE mg/dL Urine Leukocyte Esterase 1+ Sherri/ul Urine Microscopic RBC 3 /HPF Urine Microscopic WBC 14 /HPF Urine Bacteria MODERATE /HPF Urine Hemoglobin NEGATIVE mg/dL Urine Glucose NEGATIVE mg/dL Urine Total Protein 1+ mg/dl Assessment and Plan Recommendation/Plan Medication Management Major depressive disorder severe recurrent without psychosis Multiple antipsychotics: No Psychotherapy Provide supportive therapy Discharge Disposition: Other Legal Status: Voluntary SHERRI CHERY NP Jan 30, 2019 16:35
--- NOTE | 2019-01-30 16:39 | CONS ---
Assessment/Plan Assessment/Plan Hospital Course (Demo Recall) Patient is awake looks comfortable complaining of pain no fevers overnight urine culture growing gram-negative rods no labs today Antimicrobials: Cefepime Physical examination: Chronically ill appearing wasted middle-aged man who is in no distress head atraumatic normocephalic neck is supple chest rise symmetrical breath sounds clear. Heart: S1-S2. Abdomen soft bowel sounds present. Ext remities wasted nicely contracted Assessment: 1. Recurrent UTI 2. Incomplete quadriplegia 3. Chronic pain syndrome Plan: Continue antibiotics, pain management, await for final cultures Consultation Date/Type/Reason Admit Date/Time Jan 29, 2019 at 16:47 Initial Consult Date Type of Consult id Date/Time of Note DATE: 01/30/19 TIME: 16:38 Exam/Review of Systems Exam Vitals Vital Signs Date Temp Pulse Resp B/P (MAP) Pulse Ox O2 O2 Flow FiO2 Time Delivery Rate 01/30/19 98.0 90 18 94/61 (72) 98 Room Air 14:00 Intake and Output 01/29/19 01/29/19 01/30/19 1414:59 22:59 06:59 IntakeIntake Total 50 ml 160 ml OutputOutput Total 400 ml 600 ml 800 ml BalanceBalance -400 ml -550 ml -640 ml Results Result Diagram: 01/28/19 1650 01/29/19 1424 Medications Medication Current Medications Amitriptyline HCl (Elavil) 10 mg QAM PO Last administered on 01/30/19at 08:12; Admin Dose 10 MG; Start 01/29/19 at 09:00 Amitriptyline HCl (Elavil) 30 mg QHS PO Last administered on 01/29/19at 20:06; Admin Dose 30 MG; Start 01/29/19 at 21:00 Clonidine (Catapres) 0.2 mg Q8H PRN PO ELEVATED BLOOD PRESSURE Last administered on 01/30/19at 07:55; Admin Dose 0.2 MG; Start 01/28/19 at 23:00 Diazepam (Valium) 5 mg QID PO Last administered on 01/30/19at 12:12; Admin Dose 5 MG; Start 01/28/19 at 23:00 Midodrine (Proamatine) 5 mg DAILY PO ; Start 01/29/19 at 09:00 Ondansetron HCl (Zofran Tab) 4 mg Q6 PRN PO NAUSEA AND/OR VOMITING Last administered on 01/30/19 05:40; Admin Dose 4 MG; Start 01/28/19 at 23:00 Pantoprazole (Protonix Tab) 40 mg AC BREAKFAST PO Last administered on 01/30/19 06:28; Admin Dose 40 MG; Start 01/29/19 at 07:00 Promethazine HCl (Phenergan) 25 mg QHS PO Last administered on 01/29/19 20:06; Admin Dose 25 MG; Start 01/29/19 at 21:00 Tizanidine HCl (Zanaflex) 4 mg Q8H PRN PO SPASTICITY Last administered on 01/30/19 07:55; Admin Dose 4 MG; Start 01/28/19 at 23:00 Acetaminophen (Tylenol Tab) 650 mg Q6H PRN PO MILD PAIN(1-3)OR ELEVATED TEMP Last administered on 01/30/19 01:56; Admin Dose 650 MG; Start 01/28/19 at 23:00 Lubiprostone (Amitiza) 24 mcg BID PO Last administered on 01/30/19 08:12; Admin Dose 24 MCG; Start 01/29/19 at 09:00 Polyethylene Glycol (Miralax) 17 gm BID PO Last administered on 01/29/19 08:28; Admin Dose 17 GM; Start 01/29/19 at 09:00 Cefepime HCl 50 ml @ 100 mls/hr Q12 IVPB Last administered on 01/30/19 08:17; Admin Dose 100 MLS/HR; Start 01/29/19 at 09:00 Sodium Chloride 1,000 ml @ 40 mls/hr Q24H IV Last administered on 01/30/19 01:57; Admin Dose 40 MLS/HR; Start 01/28/19 at 23:00 Bisacodyl (Dulcolax) 10 mg BID PO Last administered on 01/29/19 20:06; Admin Dose 10 MG; Start 01/29/19 at 09:00 Hydromorphone HCl (Dilaudid) 4 mg Q6H PRN PO PAIN LEVEL 4-6 Last administered on 01/30/19 09:59; Admin Dose 4 MG; Start 01/28/19 at 23:20 Non-Formulary Medication 1 ea DAILY PO Last administered on 01/30/19 08:12; Admin Dose 1 EA; Start 01/29/19 at 09:00 Hydromorphone HCl (Dilaudid) 1 mg Q4H PRN IV SEVERE PAIN LEVEL 7-10 Last administered on 01/30/19 16:19; Admin Dose 1 MG; Start 01/29/19 at 15:30 Phenazopyridine HCl (Pyridium) 200 mg TID PO Last administered on 01/30/19 12:12; Admin Dose 200 MG; Start 01/30/19 at 13:00 NOÉ JUNIOR NP Jan 30, 2019 16:39
[2019-01-30 20:00] VITALS: BP 100/71; PULSE 105; RESP 18
[2019-01-30] MEDS: PROMETHAZINE 25 MG TAB PO SCH (20:43)
[2019-01-31] MEDS: HYDROmorphONE 1 MG/ML SYG IV PRN ×6 (00:53→20:26)
[2019-01-31] MEDS: ONDANSETRON 4 MG TAB PO PRN ×2 (01:20→10:15)
[2019-01-31 02:00] VITALS: BP 101/73; PULSE 114; RESP 18
[2019-01-31] MEDS: SOD CHLORIDE 0.9% 1,000 ML IV SCH (05:07)
[2019-01-31] MEDS: PANTOPRAZOLE (EC) 40 MG TAB PO SCH (06:12)
[2019-01-31] MEDS: TIZANIDINE 4 MG TAB PO PRN (06:47)
[2019-01-31 07:29] VITALS: BP 105/82; PULSE 67; RESP 18
[2019-01-31] MEDS: TRULANCE 3 MG PO SCH (09:00)
[2019-01-31] MEDS: BISACODYL (EC) 5 MG TAB PO SCH ×2 (09:00→20:26)
[2019-01-31] MEDS: MIDODRINE 5 MG TAB PO SCH (09:00)
[2019-01-31] MEDS: POLYETHYLENE GLYCOL 17 GM PACKET PO SCH (09:00)
[2019-01-31] MEDS: CEFEPIME 1GM/50 ML (PMX) 50 ML IVPB SCH ×2 (09:26→20:26)
[2019-01-31] MEDS: LUBIPROSTONE 24 MCG CAP PO SCH (09:29)
[2019-01-31] MEDS: AMITRIPTYLINE 10 MG TAB PO SCH ×2 (09:29→20:26)
[2019-01-31] MEDS: DIAZEPAM 5 MG TAB PO SCH ×4 (09:29→20:26)
[2019-01-31] MEDS: PHENAZOPYRIDINE 200 MG TAB PO SCH ×3 (09:29→20:25)
[2019-01-31 14:08] VITALS: BP 107/73; PULSE 90; RESP 18
--- NOTE | 2019-01-31 14:11 | CONS ---
Assessment/Plan Assessment/Plan Hospital Course (Demo Recall) Patient is awake looks comfortable complaining of pain no fevers overnight urine culture growing multidrug-resistant Proteus Antimicrobials: Cefepime Physical examination: Chronically ill appearing wasted middle-aged man who is in no distress head atraumatic normocephalic neck is supple chest rise symmetrical breath sounds clear. Heart: S1-S2. Abdomen soft bowel sounds present. Extremities wasted nicely contracted Assessment: 1. Recurrent UTI 2. Incomplete quadriplegia 3. Chronic pain syndrome Plan: Clinically improving, continue on current antibiotics to complete 7 more days patient will require PICC line Consultation Date/Type/Reason Admit Date/Time Jan 29, 2019 at 16:47 Initial Consult Date Type of Consult id Date/Time of Note DATE: 01/31/19 TIME: 14:10 Exam/Review of Systems Exam Vitals Vital Signs Date Temp Pulse Resp B/P (MAP) Pulse Ox O2 O2 Flow FiO2 Time Delivery Rate 01/31/19 98.0 67 18 105/82 98 Room Air 07:29 (90) Intake and Output 01/30/19 01/30/19 01/31/19 1515:00 23:00 07:00 IntakeIntake Total 50 ml 50 ml OutputOutput Total 500 ml BalanceBalance 50 ml -450 ml Results Result Diagram: 01/31/19 0845 01/29/19 1424 Results 24hrs Laboratory Tests Test 01/31/19 08:45 White Blood Count 6.4 # Red Blood Count 3.98 L Hemoglobin 11.8 L Hematocrit 36.0 L Mean Corpuscular Volume 90.5 Mean Corpuscular Hemoglobin 29.6 Mean Corpuscular Hemoglobin Concent 32.8 Red Cell Distribution Width 15.1 H Platelet Count 191 Mean Platelet Volume 11.2 H Immature Granulocytes % 0.500 H Neutrophils % 58.6 Lymphocytes % 24.8 Monocytes % 14.4 H Eosinophils % 1.1 Basophils % 0.6 Nucleated Red Blood Cells % 0.0 Immature Granulocytes # 0.030 Neutrophils # 3.8 Lymphocytes # 1.6 Monocytes # 0.9 Eosinophils # 0.1 Basophils # 0.0 Nucleated Red Blood Cells # 0.0 Medications Medication Current Medications Amitriptyline HCl (Elavil) 10 mg QAM PO Last administered on 01/31/19at 09:29; A dmin Dose 10 MG; Start 01/29/19 at 09:00 Amitriptyline HCl (Elavil) 30 mg QHS PO Last administered on 01/30/19 20:43; Admin Dose 30 MG; Start 01/29/19 at 21:00 Clonidine (Catapres) 0.2 mg Q8H PRN PO ELEVATED BLOOD PRESSURE Last administered on 01/30/19 07:55; Admin Dose 0.2 MG; Start 01/28/19 at 23:00 Diazepam (Valium) 5 mg QID PO Last administered on 01/31/19 13:14; Admin Dose 5 MG; Start 01/28/19 at 23:00 Midodrine (Proamatine) 5 mg DAILY PO ; Start 01/29/19 at 09:00 Ondansetron HCl (Zofran Tab) 4 mg Q6 PRN PO NAUSEA AND/OR VOMITING Last administered on 01/31/19 10:15; Admin Dose 4 MG; Start 01/28/19 at 23:00 Pantoprazole (Protonix Tab) 40 mg AC BREAKFAST PO Last administered on 01/31/19 06:12; Admin Dose 40 MG; Start 01/29/19 at 07:00 Promethazine HCl (Phenergan) 25 mg QHS PO Last administered on 01/30/19 20:43; Admin Dose 25 MG; Start 01/29/19 at 21:00 Tizanidine HCl (Zanaflex) 4 mg Q8H PRN PO SPASTICITY Last administered on 01/31/19 06:47; Admin Dose 4 MG; Start 01/28/19 at 23:00 Acetaminophen (Tylenol Tab) 650 mg Q6H PRN PO MILD PAIN(1-3)OR ELEVATED TEMP Last administered on 01/30/19 01:56; Admin Dose 650 MG; Start 01/28/19 at 23:00 Lubiprostone (Amitiza) 24 mcg BID PO Last administered on 01/31/19 09:29; Admin Dose 24 MCG; Start 01/29/19 at 09:00 Polyethylene Glycol (Miralax) 17 gm BID PO Last administered on 01/29/19 08:28; Admin Dose 17 GM; Start 01/29/19 at 09:00 Cefepime HCl 50 ml @ 100 mls/hr Q12 IVPB Last administered on 01/31/19 09:26; Admin Dose 100 MLS/HR; Start 01/29/19 at 09:00 Sodium Chloride 1,000 ml @ 40 mls/hr Q24H IV Last administered on 01/31/19 05 :07; Admin Dose 40 MLS/HR; Start 01/28/19 at 23:00 Bisacodyl (Dulcolax) 10 mg BID PO Last administered on 01/30/19 20:43; Admin Dose 10 MG; Start 01/29/19 at 09:00 Hydromorphone HCl (Dilaudid) 4 mg Q6H PRN PO PAIN LEVEL 4-6 Last administered on 01/30/19 18:06; Admin Dose 4 MG; Start 01/28/19 at 23:20 Non-Formulary Medication 1 ea DAILY PO Last administered on 01/30/19 08:12; Admin Dose 1 EA; Start 01/29/19 at 09:00 Hydromorphone HCl (Dilaudid) 1 mg Q4H PRN IV SEVERE PAIN LEVEL 7-10 Last administered on 01/31/19 13:16; Admin Dose 1 MG; Start 01/29/19 at 15:30 Phenazopyridine HCl (Pyridium) 200 mg TID PO Last administered on 01/31/19 13:15; Admin Dose 200 MG; Start 01/30/19 at 13:00 NOÉ JUNIOR NP Jan 31, 2019 14:11
--- NOTE | 2019-01-31 14:49 | PN ---
Date/Time of Note Date/Time of Note DATE: 01/31/19 TIME: 14:46 Assessment/Plan VTE Prophylaxis Risk score (from Ns)>0 risk: 3 [place] [facility] [place] contraindicated: low risk/ambulating Pharmacological prophylaxis: NA/contraindicated Pharm contraindication: low risk/ambulating Lines/Catheters IV Catheter Type (from [facility]): Peripheral IV Assessment/Plan Assessment/Plan 48-year-old male presenting with: 1. Recurrent urinary tract infection. The patient has history of recurrent urinary tract infections in the past. Drain through the ileostomy. The patient had multidrug-resistant urinary tract infection in the past. ucx+GNR, NOW with proteus 2. Pain control with bladder spasm. 3. Autonomic dysreflexia. 4. Bedbound state. 5. History of incomplete quadriplegia. 6. Labile hypertension. 7. Depression. 8. Anxiety. 9. Gastroesophageal reflux disease. Plan -Proteus sensitive to amikacin/cefepime/meropenem -Continue with the cefepime 1 g every 12 for total 7-day course -Patient has having diarrhea will send for stool C. difficile and add Florastor - on iv dillaudid q4, dialudid 4 mg po, zanaflex , valium - pt was seen by Dr Cavanaugh> will fu his recs - cw pyridium - GI/DVT pROPHYLAXIS Discussed pain regimen with him, RN and will talk to his pain managment doc> fu Dr Cavanaugh recs Result Diagram: 01/31/19 0845 01/29/19 1424 Results 24hrs Laboratory Tests Test 01/31/19 08:45 White Blood Count 6.4 # Red Blood Count 3.98 L Hemoglobin 11.8 L Hematocrit 36.0 L Mean Corpuscular Volume 90.5 Mean Corpuscular Hemoglobin 29.6 Mean Corpuscular Hemoglobin Concent 32.8 Red Cell Distribution Width 15.1 H Platelet Count 191 Mean Platelet Volume 11.2 H Immature Granulocytes % 0.500 H Neutrophils % 58.6 Lymphocytes % 24.8 Monocytes % 14.4 H Eosinophils % 1.1 Basophils % 0.6 Nucleated Red Blood Cells % 0.0 Immature Granulocytes # 0.030 Neutrophils # 3.8 Lymphocytes # 1.6 Monocytes # 0.9 Eosinophils # 0.1 Basophils # 0.0 Nucleated Red Blood Cells # 0.0 Subjective 24 Hr Interval Summary Free Text/Dictation Patient has sweating. Urine culture positive for Proteus Exam/Review of Systems Exam Vitals Vital Signs Date Temp Pulse Resp B/P (MAP) Pulse Ox O2 O2 Flow FiO2 Time Delivery Rate 01/31/19 98.0 90 18 107/73 95 Room Air 14:08 (84) Intake and Output 01/30/19 01/30/19 01/31/19 1515:00 23:00 07:00 IntakeIntake Total 50 ml 50 ml OutputOutput Total 500 ml BalanceBalance 50 ml -450 ml Exam ENERAL: The patient is awake, alert, oriented. He appears to be in mild distress secondary to pain. HEENT: Pupils equal, round, reactive to light. NECK: Supple. LUNGS: Clear to auscultation bilaterally. HEART: Regular rhythm. ABDOMEN: The patient has ileostomy in the right lower quadrant, draining well. He also has a colostomy with a bag, draining well. GENITOURINARY: The patient has frequent bladder spasms. EXTREMITIES: The patient has contracted extremities. NEUROLOGIC: The patient is awake, alert, oriented and able to answer all questions appropriately. Results Results 24hrs Laboratory Tests Test 01/31/19 08:45 White Blood Count 6.4 # Red Blood Count 3.98 L Hemoglobin 11.8 L Hematocrit 36.0 L Mean Corpuscular Volume 90.5 Mean Corpuscular Hemoglobin 29.6 Mean Corpuscular Hemoglobin Concent 32.8 Red Cell Distribution Width 15.1 H Platelet Count 191 Mean Platelet Volume 11.2 H Immature Granulocytes % 0.500 H Neutrophils % 58.6 Lymphocytes % 24.8 Monocytes % 14.4 H Eosinophils % 1.1 Basophils % 0.6 Nucleated Red Blood Cells % 0.0 Immature Granulocytes # 0.030 Neutrophils # 3.8 Lymphocytes # 1.6 Monocytes # 0.9 Eosinophils # 0.1 Basophils # 0.0 Nucleated Red Blood Cells # 0.0 Medications Medication Current Medications Amitriptyline HCl (Elavil) 10 mg QAM PO Last administered on 01/31/19at 09:29; Admin Dose 10 MG; Start 01/29/19 at 09:00 Amitriptyline HCl (Elavil) 30 mg QHS PO Last administered on 01/30/19at 20:43; A dmin Dose 30 MG; Start 01/29/19 at 21:00 Clonidine (Catapres) 0.2 mg Q8H PRN PO ELEVATED BLOOD PRESSURE Last administered on 01/30/19 07:55; Admin Dose 0.2 MG; Start 01/28/19 at 23:00 Diazepam (Valium) 5 mg QID PO Last administered on 01/31/19 13:14; Admin Dose 5 MG; Start 01/28/19 at 23:00 Midodrine (Proamatine) 5 mg DAILY PO ; Start 01/29/19 at 09:00 Ondansetron HCl (Zofran Tab) 4 mg Q6 PRN PO NAUSEA AND/OR VOMITING Last administered on 01/31/19 10:15; Admin Dose 4 MG; Start 01/28/19 at 23:00 Pantoprazole (Protonix Tab) 40 mg AC BREAKFAST PO Last administered on 01/31/19 06:12; Admin Dose 40 MG; Start 01/29/19 at 07:00 Promethazine HCl (Phenergan) 25 mg QHS PO Last administered on 01/30/19 20:43; Admin Dose 25 MG; Start 01/29/19 at 21:00 Tizanidine HCl (Zanaflex) 4 mg Q8H PRN PO SPASTICITY Last administered on 01/31/19 06:47; Admin Dose 4 MG; Start 01/28/19 at 23:00 Acetaminophen (Tylenol Tab) 650 mg Q6H PRN PO MILD PAIN(1-3)OR ELEVATED TEMP Last administered on 01/30/19 01:56; Admin Dose 650 MG; Start 01/28/19 at 23:00 Lubiprostone (Amitiza) 24 mcg BID PO Last administered on 01/31/19 09:29; Admin Dose 24 MCG; Start 01/29/19 at 09:00 Polyethylene Glycol (Miralax) 17 gm BID PO Last administered on 01/29/19 08:28; Admin Dose 17 GM; Start 01/29/19 at 09:00 Cefepime HCl 50 ml @ 100 mls/hr Q12 IVPB Last administered on 01/31/19 09:26; Admin Dose 100 MLS/HR; Start 01/29/19 at 09:00 Sodium Chloride 1,000 ml @ 40 mls/hr Q24H IV Last administered on 01/31/19 05:07; Admin Dose 40 MLS/HR; Start 01/28/19 at 23:00 Bisacodyl (Dulcolax) 10 mg BID PO Last administered on 01/30/19 20:43; Admin Dose 10 MG; Start 01/29/19 at 09:00 Hydromorphone HCl (Dilaudid) 4 mg Q6H PRN PO PAIN LEVEL 4-6 Last administered on 01/30/19 18:06; Admin Dose 4 MG; Start 01/28/19 at 23:20 Non-Formulary Medication 1 ea DAILY PO Last administered on 01/30/19 08:12; Admin Dose 1 EA; Start 01/29/19 at 09:00 Hydromorphone HCl (Dilaudid) 1 mg Q4H PRN IV SEVERE PAIN LEVEL 7-10 Last administered on 01/31/19 13:16; Admin Dose 1 MG; Start 01/29/19 at 15:30 Phenazopyridine HCl (Pyridium) 200 mg TID PO Last administered on 01/31/19 13:15; Admin Dose 200 MG; Start 01/30/19 at 13:00 LILLY SIDDIQI MD Jan 31, 2019 14:49
[2019-01-31] MEDS: SACCHAROMYCES BOULARDII 250 MG CAP PO SCH (16:00)
[2019-01-31] MEDS: ENOXAPARIN 40 MG/0.4 ML SYG SC SCH (16:15)
[2019-01-31] MEDS: PROMETHAZINE 25 MG TAB PO SCH (20:26)
[2019-01-31 21:11] VITALS: BP 109/71; PULSE 91; RESP 18
[2019-02-01] MEDS: HYDROmorphONE 1 MG/ML SYG IV PRN ×3 (00:30→08:52)
[2019-02-01] MEDS: SACCHAROMYCES BOULARDII 250 MG CAP PO SCH ×3 (00:31→21:00)
[2019-02-01 02:44] VITALS: BP 117/87; PULSE 89; RESP 18
[2019-02-01] MEDS: PANTOPRAZOLE (EC) 40 MG TAB PO SCH (06:04)
[2019-02-01 08:00] VITALS: BP 125/91; PULSE 99; RESP 18
[2019-02-01] MEDS: AMITRIPTYLINE 10 MG TAB PO SCH ×2 (08:55→21:00)
[2019-02-01] MEDS: MIDODRINE 5 MG TAB PO SCH (08:55)
[2019-02-01] MEDS: BISACODYL (EC) 5 MG TAB PO SCH ×2 (08:55→21:00)
[2019-02-01] MEDS: DIAZEPAM 5 MG TAB PO SCH ×4 (08:56→21:00)
[2019-02-01] MEDS: TRULANCE 3 MG PO SCH (08:56)
[2019-02-01] MEDS: PHENAZOPYRIDINE 200 MG TAB PO SCH ×3 (08:56→21:00)
[2019-02-01] MEDS: ENOXAPARIN 40 MG/0.4 ML SYG SC SCH (08:58)
[2019-02-01] MEDS: ONDANSETRON 4 MG TAB PO PRN (09:00)
[2019-02-01] MEDS: CEFEPIME 1GM/50 ML (PMX) 50 ML IVPB SCH ×2 (09:05→21:00)
--- NOTE | 2019-02-01 09:19 | PN ---
Date/Time of Note Date/Time of Note DATE: 02/01/19 TIME: 09:15 Assessment/Plan VTE Prophylaxis Risk score (from Nsg)>0 risk: 3 SCD applied (from Ns): No SCD contraindicated: low risk/ambulating Pharmacological prophylaxis: LMWH Lines/Catheters IV [facility] Type (from [facility]): Peripheral IV Assessment/Plan Hospital Course 1. Recurrent urinary tract infection. The patient has history of recurrent urinary tract infections in the past. Drain through the ileostomy. The patient had multidrug-resistant urinary tract infection in the past. ucx+GNR, NOW with proteus 2. Pain control with bladder spasm. 3. Autonomic dysreflexia. 4. Bedbound state. 5. History of incomplete quadriplegia. 6. Labile hypertension. 7. Depression. 8. Anxiety. 9. Gastroesophageal reflux disease. 10. diarrhea 11. Anemia Assessment/Plan -Proteus sensitive to amikacin/cefepime/meropenem -Continue with the cefepime 1 g every 12 for total 7-day course - sent for stool C. difficile -c/w Florastor - on iv Dilaudid q 4, Dilaudid 4 mg po QID, Zanaflex , Valium. - pt was seen by Dr Cavanaugh, pain [id number]> will fu his recs - cw Pyridium. - GI proph. Protonix -DVT proph. Lovenox Result Diagram: 01/31/19 0845 01/29/19 1424 Subjective 24 Hr Interval Summary Free Text/Dictation generalized spasms and pain Musculoskeletal: back pain Exam/Review of Systems Exam Vitals Vital Signs Date Temp Pulse Resp B/P (MAP) Pulse Ox O2 O2 Flow FiO2 Time Delivery Rate 02/01/19 98.1 89 18 117/87 98 02:44 (97) 01/31/19 Room Air 14:08 Intake and Output 01/31/19 01/31/19 02/01/19 1515:00 23:00 07:00 IntakeIntake Total 350 ml 450 ml 400 ml OutputOutput Total 300 ml 700 ml BalanceBalance 350 ml 150 ml -300 ml Constitutional: alert, oriented Head: normocephalic ENMT: nl external ears & nose Neck: supple, other (surg.. scar) Respiratory: diminished breath sounds Gastrointestinal: other (colostomy) Genitourinary - Male: other (illeal pouch catheter) Musculoskeletal: muscle weakness Neurological: other (quadriplegic) Skin: other (pale) Medications Medication Current Medications Amitriptyline HCl (Elavil) 10 mg QAM PO Last administered on 02/01/19 08:55; Admin Dose 10 MG; Start 01/29/19 at 09:00 Amitriptyline HCl (Elavil) 30 mg QHS PO Last administered on 01/31/19 20:26; Admin Dose 30 MG; Start 01/29/19 at 21:00 Diazepam (Valium) 5 mg QID PO Last administered on 02/01/19 08:56; Admin Dose 5 MG; Start 01/28/19 at 23:00 Midodrine (Proamatine) 5 mg DAILY PO Last administered on 02/01/19 08:55; Admin Dose 5 MG; Start 01/29/19 at 09:00 Ondansetron HCl (Zofran Tab) 4 mg Q6 PRN PO NAUSEA AND/OR VOMITING Last administered on 02/01/19 09:00; Admin Dose 4 MG; Start 01/28/19 at 23:00 Pantoprazole (Protonix Tab) 40 mg AC BREAKFAST PO Last administered on 02/01/19 06:04; Admin Dose 40 MG; Start 01/29/19 at 07:00 Promethazine HCl (Phenergan) 25 mg QHS PO Last administered on 01/31/19 20:26; Admin Dose 25 MG; Start 01/29/19 at 21:00 Tizanidine HCl (Zanaflex) 4 mg Q8H PRN PO SPASTICITY Last administered on 01/31/19 06:47; Admin Dose 4 MG; Start 01/28/19 at 23:00 Acetaminophen (Tylenol Tab) 650 mg Q6H PRN PO MILD PAIN(1-3)OR ELEVATED TEMP Last administered on 01/30/19 01:56; Admin Dose 650 MG; Start 01/28/19 at 23:00 Cefepime HCl 50 ml @ 100 mls/hr Q12 IVPB Last administered on 02/01/19 09:05; Admin Dose 100 MLS/HR; Start 01/29/19 at 09:00 Bisacodyl (Dulcolax) 10 mg BID PO Last administered on 6/7/19at 08:55; Admin Dose 10 MG; Start 01/29/19 at 09:00 Hydromorphone HCl (Dilaudid) 4 mg Q6H PRN PO PAIN LEVEL 4-6 Last administered on 01/30/19 18:06; Admin Dose 4 MG; Start 01/28/19 at 23:20 Non-Formulary Medication 1 ea DAILY PO Last administered on 02/01/19 08:56; Admin Dose 1 EA; Start 01/29/19 at 09:00 Hydromorphone HCl (Dilaudid) 1 mg Q4H PRN IV SEVERE PAIN LEVEL 7-10 Last administered on 02/01/19 08:52; Admin Dose 1 MG; Start 01/29/19 at 15:30 Phenazopyridine HCl (Pyridium) 200 mg TID PO Last administered on 02/01/19 08:56; Admin Dose 200 MG; Start 01/30/19 at 13:00 Saccharomyces Boulardii (Florastor) 250 mg BID PO Last administered on 02/01/19 08:56; Admin Dose 250 MG; Start 01/31/19 at 16:00 Enoxaparin Sodium (Lovenox) 40 mg DAILY SC Last administered on 02/01/19 08:58; Admin Dose 40 MG; Start 01/31/19 at 15:30 LUZ DOMÍNGUEZ Feb 01, 2019 09:18
--- NOTE | 2019-02-01 10:37 | PDOCDIS ---
Discharge Instructions DIAGNOSIS Discharge Diagnosis UTI CONDITION [id number] Patient Condition: [id number] Stable ACTIVITY: [id number] Activity Restrictions: [id number] Restrictions FOLLOW UP/APPOINTMENTS Follow-up Plan with IV services LUZ DOMÍNGUEZ Feb 01, 2019 10:37
[2019-02-01] MEDS ORDERED: SACC250C PO (10:40)
[2019-02-01] MEDS ORDERED: PHEN-717 PO (10:40)
[2019-02-01] MEDS ORDERED: CHOL200073 PO (10:40)
--- NOTE | 2019-02-01 10:47 | DS ---
Date/Time of Note Date/Time of Note DATE: 02/08/19 TIME: 10:46 Discharge Summary Admission/Discharge Info Admit Date/Time Jan 29, 2019 at 16:47 Discharge Date/Time Discharge Diagnosis UTI Patient Condition: Stable Consults psychiatric assistant Karly, Dr Cavanaugh, pain control MD Hospital Course This is a 48-year-old male with a past medical history of quadriparesis, bedridden state, hip fracture, knee fracture in the past, history of ileostomy, anxiety, depression, chronic pain syndrome, insomnia, history of multiple admissions in the past secondary to UTI where the patient had a recent admission in [place] in December secondary to UTI. He presented to the emergency department complaining of severe abdominal pain and muscle cramps for the past few days. 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 They have noticed his urine to be more cloudy than usual. He is having severe abdominal pain and having nausea. His colostomy has been draining well and came to the emergency department for further evaluation. On admission, vital signs show a temperature of 98.1, pulse 88, respirations 20, blood pressure 145/94, saturating 99%. White count of 5.3. UA had shown positive nitrite, 1+ leukocyte esterase, 14 wbc's. The patient was admitted for further management. PAST MEDICAL HISTORY: 1. History of quadriparesis. 2. Bedbound state. 3. History of multiple UTIs. 4. Autonomic dysreflexia. 5. Labile hypertension. 6. GERD. 7. History of constipation. Impressions:1. Recurrent urinary tract infection. The patient has history of recurrent urinary tract infections in the past. Drain through the ileostomy. The patient had multidrug-resistant urinary tract infection in the past. ucx+GNR, NOW with proteus 2. Pain control with bladder spasm. 3. Autonomic dysreflexia. 4. Bedbound state. 5. History of quadriplegia. 6. Labile hypertension. 7. Depression. 8. Anxiety. 9. Gastroesophageal reflux disease. 10. diarrhea 11. Anemia During hospitalization pt was in medsurg service. His pain was controlled by dr Cavanaugh, pain specialist. For few days he was given IV a/b per ID specialist dr Araujo. His diarrhea was neg. for c. diff. Patient was ready to be discharged with 3 more days of IV antibiotics. Suddenly he developed acute psychiatric decompensation, became delusional and refused all meds. Lactic acid also was elevted. His BP was around 200, he had episodes of SVT and was transferred to ICU, where central line was placed and pt was started on Amiodarone. NG tube was places and some medications was given via NG tube, Dr Rocha was called and we followed his recommendations. Pt was seen by psych. LUMBER HACKER Karly and started on Zyprexa. Later his mentation improved, NG tube was removed and pt was started to eat. He tolerated diet well. His pain was under reasonable control but spasms are stayed the same per pt. Pt was given Foosfomycin and he was d/c home. Dr rocha recommended to c/w Amiodarone 200 mg daily.. Home Meds Active Scripts Amiodarone Hcl* (Amiodarone Hcl*) 200 Mg Tablet, 200 MG PO DAILY for 30 Days, TAB Prov:LUZ DOMÍNGUEZ 02/08/19 Linezolid (Linezolid) 600 Mg Tablet, 600 MG PO BID for 5 Days, TAB Prov:LUZ DOMÍNGUEZ 02/08/19 Cholecalciferol (Vitamin D3) (VITAMIN D-3) 2,000 Unit Capsule, 4000 UNIT PO DAILY for 90 Days, CAP Prov:LUZ DOMÍNGUEZ 02/01/19 Phenazopyridine Hcl* (Phenazopyridine Hcl*) 200 Mg Tablet, 200 MG PO TID for 7 Days, TAB Prov:LUZ DOMÍNGUEZ 02/01/19 Saccharomyces Boulardii* (Florastor*) 250 Mg Cap, 250 MG PO BID for 14 Days, CAP Prov:LUZ DOMÍNGUEZ 02/01/19 Reported Medications Amitriptyline Hcl* (Amitriptyline Hcl*) 10 Mg Tablet, 30 MG PO QHS, #60 TAB 01/28/19 Amitriptyline Hcl* (Amitriptyline Hcl*) 10 Mg Tablet, 10 MG PO QAM, #30 TAB 01/28/19 Promethazine Hcl* (Phenergan*) 25 Mg Tablet, 25 MG PO QHS, TAB 01/28/19 Midodrine* (Midodrine*) 5 Mg Tablet, 5 MG PO DAILY, TAB 01/28/19 Clonidine Hcl* (Clonidine Hcl*) 0.2 Mg Tablet, 0.2 MG PO Q8H, TAB 01/28/19 Tizanidine Hcl* (Tizanidine Hcl*) 4 Mg Capsule, 4 MG PO Q8H PRN for SPASTICITY, CAP 01/28/19 Pantoprazole* (Pantoprazole*) 40 Mg Tablet.dr, 40 MG PO AC BREAKFAST, TAB 01/28/19 Plecanatide (Trulance) 3 Mg Tablet, 3 MG PO DAILY, TAB 01/28/19 Hydromorphone Hcl* (Dilaudid*) 4 Mg Tablet, 4 MG PO Q6H PRN for PAIN, TAB 01/28/19 Diazepam* (Diazepam*) 5 Mg Tablet, 5 MG PO QID, TAB 01/28/19 Ondansetron Hcl* (Zofran*) 4 Mg Tab, 4 MG PO NEEDED PRN for NAUSEA AND OR VOMITING, TAB 01/28/19 Follow-up Plan Home visit Primary Care Provider Moises Barnett MD Time spent on discharge: < 30 minutes LUZ DOMÍNGUEZ Feb 01, 2019 10:47
[2019-02-01] MEDS ORDERED: LIDOCAINE 1% (MPF) 5 ML VIAL SC ONE (11:00)
[2019-02-01] MEDS: CHOLECALCIFEROL 2,000 UNIT CAP PO SCH (11:14)
[2019-02-01] MEDS ORDERED: HYDROmorphONE 2 MG TAB PO SCH (12:00)
[2019-02-01 14:00] VITALS: PULSE 95; RESP 18
[2019-02-01] MEDS: TIZANIDINE 4 MG TAB PO PRN (16:42)
--- NOTE | 2019-02-01 18:29 | CONS ---
Assessment/Plan Assessment/Plan Hospital Course (Demo Recall) 1300 Patient is awake looks comfortable Antimicrobials: Cefepime Physical examination: Chronically ill appearing wasted middle-aged man who is in no distress head atraumatic normocephalic neck is supple chest rise symmetrical breath sounds clear. Heart: S1-S2. Abdomen soft bowel sounds present. Extremities wasted nicely contracted Assessment: 1. Recurrent UTI 2. Incomplete quadriplegia 3. Chronic pain syndrome Plan: Clinically improving, continue on current antibiotics for 4 more days not a candidate for out patient PICC line secondary to substance abuse Consultation Date/Type/Reason Admit Date/Time Jan 29, 2019 at 16:47 Initial Consult Date Type of Consult id Date/Time of Note DATE: 02/01/19 TIME: 18:28 Exam/Review of Systems Exam Vitals Vital Signs Date Temp Pulse Resp B/P (MAP) Pulse Ox O2 O2 Flow FiO2 Time Delivery Rate 02/01/19 98.4 95 18 99 14:00 02/01/19 125/91 08:00 (102) 01/31/19 Room Air 14:08 Intake and Output 01/31/19 01/31/19 02/01/19 1515:00 23:00 07:00 IntakeIntake Total 350 ml 450 ml 400 ml OutputOutput Total 300 ml 700 ml BalanceBalance 350 ml 150 ml -300 ml Results Result Diagram: 01/31/19 0845 01/29/19 1424 Medications Medication Current Medications Amitriptyline HCl (Elavil) 10 mg QAM PO Last administered on 02/01/19 08:55; Admin Dose 10 MG; Start 01/29/19 at 09:00 Amitriptyline HCl (Elavil) 30 mg QHS PO Last administered on 01/31/19at 20:26; Admin Dose 30 MG; Start 01/29/19 at 21:00 Diazepam (Valium) 5 mg QID PO Last administered on 02/01/19 08:56; Admin Dose 5 MG; Start 01/28/19 at 23:00 Midodrine (Proamatine) 5 mg DAILY PO Last administered on 02/01/19 08:55; Admin Dose 5 MG; Start 01/29/19 at 09:00 Ondansetron HCl (Zofran Tab) 4 mg Q6 PRN PO NAUSEA AND/OR VOMITING Last administered on 02/01/19 09:00; Admin Dose 4 MG; Start 01/28/19 at 23:00 Pantoprazole (Protonix Tab) 40 mg AC BREAKFAST PO Last administered on 02/01/19 06:04; Admin Dose 40 MG; Start 01/29/19 at 07:00 Promethazine HCl (Phenergan) 25 mg QHS PO Last administered on 01/31/19 20:26; Admin Dose 25 MG; Start 01/29/19 at 21:00 Tizanidine HCl (Zanaflex) 4 mg Q8H PRN PO SPASTICITY Last administered on 02/01/19 16:42; Admin Dose 4 MG; Start 01/28/19 at 23:00 Acetaminophen (Tylenol Tab) 650 mg Q6H PRN PO MILD PAIN(1-3)OR ELEVATED TEMP Last administered on 01/30/19 01:56; Admin Dose 650 MG; Start 01/28/19 at 23:00 Cefepime HCl 50 ml @ 100 mls/hr Q12 IVPB Last administered on 02/01/19 09:05; Admin Dose 100 MLS/HR; Start 01/29/19 at 09:00 Bisacodyl (Dulcolax) 10 mg BID PO Last administered on 02/01/19 08:55; Admin Dose 10 MG; Start 01/29/19 at 09:00 Non-Formulary Medication 1 ea DAILY PO Last administered on 02/01/19 08:56; Admin Dose 1 EA; Start 01/29/19 at 09:00 Phenazopyridine HCl (Pyridium) 200 mg TID PO Last administered on 02/01/19 08:56; Admin Dose 200 MG; Start 01/30/19 at 13:00 Saccharomyces Boulardii (Florastor) 250 mg BID PO Last administered on 02/01/19 08:56; Admin Dose 250 MG; Start 01/31/19 at 16:00 Enoxaparin Sodium (Lovenox) 40 mg DAILY SC Last administered on 02/01/19 08:58; Admin Dose 40 MG; Start 01/31/19 at 15:30 Cholecalciferol (Vitamin D) 2,000 unit DAILY PO Last administered on 02/01/19 11:14; Admin Dose 2,000 UNIT; Start 6/7/19 at 10:00 Hydromorphone HCl (Dilaudid) 0.5 mg Q4H PRN IV SEVERE PAIN LEVEL 7-10; Start 02/01/19 at 19:30 Hydromorphone HCl (Dilaudid) 2 mg Q6H PRN PO PAIN LEVEL 4-6; Start 02/01/19 at 18:00 NOÉ JUNIOR NP Feb 01, 2019 18:29
[2019-02-01 20:00] VITALS: BP 102/80; PULSE 119; RESP 16
[2019-02-01] MEDS: PROMETHAZINE 25 MG TAB PO SCH (21:00)
[2019-02-02 02:00] VITALS: BP 140/91; PULSE 87; RESP 18
[2019-02-02] MEDS: PANTOPRAZOLE (EC) 40 MG TAB PO SCH (06:43)
[2019-02-02 07:34] VITALS: BP 79/64; PULSE 145; RESP 18
[2019-02-02] MEDS ORDERED: SOD CHLORIDE 0.9% 1,000 ML IV ONE (08:30)
[2019-02-02] MEDS: CEFEPIME 1GM/50 ML (PMX) 50 ML IVPB SCH ×2 (08:48→20:32)
[2019-02-02] MEDS: BISACODYL (EC) 5 MG TAB PO SCH ×2 (08:53→20:32)
[2019-02-02] MEDS: SACCHAROMYCES BOULARDII 250 MG CAP PO SCH ×2 (08:53→20:32)
[2019-02-02] MEDS: MIDODRINE 5 MG TAB PO SCH (08:53)
[2019-02-02] MEDS: AMITRIPTYLINE 10 MG TAB PO SCH ×2 (08:53→20:32)
[2019-02-02] MEDS: TRULANCE 3 MG PO SCH (08:53)
[2019-02-02] MEDS: PHENAZOPYRIDINE 200 MG TAB PO SCH ×4 (08:54→20:32)
[2019-02-02] MEDS: DIAZEPAM 5 MG TAB PO SCH ×5 (08:54→20:33)
[2019-02-02] MEDS: ENOXAPARIN 40 MG/0.4 ML SYG SC SCH (08:54)
[2019-02-02] MEDS: CHOLECALCIFEROL 2,000 UNIT CAP PO SCH (08:54)
--- NOTE | 2019-02-02 10:02 | PN ---
Date/Time of Note Date/Time of Note DATE: 02/02/19 TIME: 10:02 Assessment/Plan VTE Prophylaxis Risk score (from Ns)>0 risk: 4 SCD applied (from [facility]): No SCD contraindicated: other Pharmacological prophylaxis: LMWH Lines/Catheters IV Catheter Type (from [facility]): Peripheral IV Assessment/Plan Hospital Course 1. Recurrent urinary tract infection. The patient has history of recurrent uri nary tract infections in the past. Drain through the ileostomy. The patient had multidrug-resistant urinary tract infection in the past. ucx+GNR, NOW with proteus 2. Pain control with bladder spasm. 3. Autonomic dysreflexia. 4. Bedbound state. 5. History of incomplete quadriplegia. 6. Labile hypertension. 7. Depression. 8. Anxiety. 9. Gastroesophageal reflux disease. 10. diarrhea 11. Anemia 12. Acute psychiatric decompensation Assessment/Plan -Proteus sensitive to amikacin/cefepime/meropenem hold D/c -Continue with the cefepime 1 g every 12 for total 7-day course - stool C. difficile neg -c/w Florastor -dc IV dilaudid - Dilaudid 4 mg po q 6 prn, Zanaflex , Valium. - pt was seen by Dr Cavanaugh, pain control> will fu his recs - cw Pyridium. - GI proph. Protonix -DVT proph. Lovenox Result Diagram: 01/31/19 0845 01/29/19 1424 Subjective 24 Hr Interval Summary Free Text/Dictation hallucinating Exam/Review of Systems Exam Vitals Vital Signs Date Temp Pulse Resp B/P (MAP) Pulse Ox O2 O2 Flow FiO2 Time Delivery Rate 02/02/19 98.4 145 18 79/64 (69) 96 Room Air 07:34 Intake and Output 02/01/19 02/01/19 02/02/19 1515:00 23:00 07:00 IntakeIntake Total 290 ml 200 ml OutputOutput Total 550 ml BalanceBalance 290 ml -350 ml Constitutional: alert, oriented Psych: anxiety Head: normocephalic Eyes: nl conjunctiva Neck: supple Respiratory: clear to auscultation Cardiovascular: regular rate and rhythm Gastrointestinal: soft, surgical scars, other (colostomy) Genitourinary - Male: other (ileal pouch) Musculoskeletal: other (weakness) Extremities: other (upper extremities are red, swollen) Medications Medication Current Medications Amitriptyline HCl (Elavil) 10 mg QAM PO Last administered on 02/01/19 08:55; Admin Dose 10 MG; Start 01/29/19 at 09:00 Amitriptyline HCl (Elavil) 30 mg QHS PO Last administered on 01/31/19 20:26; Admin Dose 30 MG; Start 01/29/19 at 21:00 Diazepam (Valium) 5 mg QID PO Last administered on 02/01/19 08:56; Admin Dose 5 MG; Start 01/28/19 at 23:00 Midodrine (Proamatine) 5 mg DAILY PO Last administered on 02/01/19 08:55; Admin Dose 5 MG; Start 01/29/19 at 09:00 Ondansetron HCl (Zofran Tab) 4 mg Q6 PRN PO NAUSEA AND/OR VOMITING Last administered on 02/01/19 09:00; Admin Dose 4 MG; Start 01/28/19 at 23:00 Pantoprazole (Protonix Tab) 40 mg AC BREAKFAST PO Last administered on 02/01/19 06:04; Admin Dose 40 MG; Start 01/29/19 at 07:00 Promethazine HCl (Phenergan) 25 mg QHS PO Last administered on 01/31/19 20:26; Admin Dose 25 MG; Start 01/29/19 at 21:00 Tizanidine HCl (Zanaflex) 4 mg Q8H PRN PO SPASTICITY Last administered on 02/01/19 16:42; Admin Dose 4 MG; Start 01/28/19 at 23:00 Acetaminophen (Tylenol Tab) 650 mg Q6H PRN PO MILD PAIN(1-3)OR ELEVATED TEMP Last administered on 01/30/19 01:56; Admin Dose 650 MG; Start 01/28/19 at 23:00 Cefepime HCl 50 ml @ 100 mls/hr Q12 IVPB Last administered on 02/02/19 08:48; Admin Dose 100 MLS/HR; Start 01/29/19 at 09:00 Bisacodyl (Dulcolax) 10 mg BID PO Last administered on 02/01/19 08:55; Admin Dose 10 MG; Start 01/29/19 at 09:00 Non-Formulary Medication 1 ea DAILY PO Last administered on 02/01/19 08:56; Admin Dose 1 EA; Start 01/29/19 at 09:00 Phenazopyridine HCl (Pyridium) 200 mg TID PO Last administered on 02/01/19 08:56; Admin Dose 200 MG; Start 01/30/19 at 13:00 Saccharomyces Boulardii (Florastor) 250 mg BID PO Last administered on 02/01/19 08:56; Admin Dose 250 MG; Start 01/31/19 at 16:00 Enoxaparin Sodium (Lovenox) 40 mg DAILY SC Last administered on 02/01/19 08:58; Admin Dose 40 MG; Start 01/31/19 at 15:30 Cholecalciferol (Vitamin D) 2,000 unit DAILY PO Last administered on 02/01/19at 11:14; Admin Dose 2,000 UNIT; Start 02/01/19 at 10:00 Hydromorphone HCl (Dilaudid) 0.5 mg Q4H PRN IV SEVERE PAIN LEVEL 7-10; Start 02/01/19 at 19:30 Hydromorphone HCl (Dilaudid) 2 mg Q6H PRN PO PAIN LEVEL 4-6; Start 02/01/19 at 18:00 LUZ DOMÍNGUEZ Feb 02, 2019 10:02
[2019-02-02] MEDS ORDERED: LORAZEPAM 2 MG INJ IV ONE (10:30)
[2019-02-02] MEDS: SOD CHLORIDE 0.9% 1,000 ML IV SCH ×2 (10:30→17:17)
[2019-02-02 14:22] VITALS: BP 226/115; PULSE 74; RESP 20
--- NOTE | 2019-02-02 15:03 | CONS ---
Assessment/Plan Assessment/Plan Hospital Course (Demo Recall) ID PROGRESS NOTE CURRENT ABX: DAY # =>Cefepime 24H INTERVAL SUMMARY * 48 yo M paraplegic, currently sleeping, no fevers, VSS, looks comfortable MICRO/OTHER * (-) C.Diff * 01/28/19 URINE CX URINE CULTURE Final Organism 1 PROTEUS MIRABILIS COLONY COUNT >100,000 CFU/ml P. MIRAB P. MIRAB M.I.C. RX M.I.C. RX --------- --- --------- --- AMIKACIN <=2 S AMPICILLIN >=32 R CEFEPIME <=1 S CEFOTAXIME R CIPROFLOXACIN >=4 R GENTAMICIN 8 I LEVOFLOXACIN >=8 R MEROPENEM 0.5 S NITROFURANTOIN 128 R TOBRAMYCIN 8 I TRIMETHOPRIM/SULFAMETHOXAZOLE >=320 R PHYSICAL EXAMINATION: GENERAL: VSS, NAD HEENT: AT, NC, anicteric, NECK: Supple, CHEST: Equal chest rise bilaterally, without dyspnea on observation HEART: Pulse RRR ABDOMEN: Soft : deferred EXTREMITIES: DEFERRED SKIN: No rash, no diaphoresis ID ASSESSMENT 3o yo M admit with: 1. Recurrent UTI 2. Incomplete quadriplegia 3. Chronic pain syndrome ABX ALLERGIES: None to ABX INVASIVES: PIV CURRENT ABX: DAY # > ID RECOMMENDATIONS/PLAN: 1. ABX x 3 more days 2. Not a candidate for out patient PICC line secondary to substance abuse . Consultation Date/Type/Reason Admit Date/Time Jan 29, 2019 at 16:47 Initial Consult Date Date/Time of Note DATE: 02/02/19 TIME: 15:03 Exam/Review of Systems Exam Vitals Vital Signs Date Temp Pulse Resp B/P (MAP) Pulse Ox O2 O2 Flow FiO2 Time Delivery Rate 02/02/19 98.2 74 20 226/115 94 Room Air 14:22 (152) Intake and Output 02/01/19 02/01/19 02/02/19 1515:00 23:00 07:00 IntakeIntake Total 290 ml 200 ml OutputOutput Total 550 ml BalanceBalance 290 ml -350 ml Results Result Diagram: 01/31/19 0845 01/29/19 1424 Medications Medication Current Medications Amitriptyline HCl (Elavil) 10 mg QAM PO Last administered on 02/01/19 08:55; Admin Dose 10 MG; Start 01/29/19 at 09:00 Amitriptyline HCl (Elavil) 30 mg QHS PO Last administered on 01/31/19 20:26; Admin Dose 30 MG; Start 01/29/19 at 21:00 Diazepam (Valium) 5 mg QID PO Last administered on 02/01/19 08:56; Admin Dose 5 MG; Start 01/28/19 at 23:00 Midodrine (Proamatine) 5 mg DAILY PO Last administered on 02/01/19 08:55; Admin Dose 5 MG; Start 01/29/19 at 09:00 Ondansetron HCl (Zofran Tab) 4 mg Q6 PRN PO NAUSEA AND/OR VOMITING Last administered on 02/01/19 09:00; Admin Dose 4 MG; Start 01/28/19 at 23:00 Pantoprazole (Protonix Tab) 40 mg AC BREAKFAST PO Last administered on 02/01/19 06:04; Admin Dose 40 MG; Start 01/29/19 at 07:00 Promethazine HCl (Phenergan) 25 mg QHS PO Last administered on 01/31/19 20:26; Admin Dose 25 MG; Start 01/29/19 at 21:00 Tizanidine HCl (Zanaflex) 4 mg Q8H PRN PO SPASTICITY Last administered on 02/01/19 16:42; Admin Dose 4 MG; Start 01/28/19 at 23:00 Acetaminophen (Tylenol Tab) 650 mg Q6H PRN PO MILD PAIN(1-3)OR ELEVATED TEMP Last administered on 01/30/19 01:56; Admin Dose 650 MG; Start 01/28/19 at 23:00 Cefepime HCl 50 ml @ 100 mls/hr Q12 IVPB Last administered on 02/02/19 08:48; Admin Dose 100 MLS/HR; Start 01/29/19 at 09:00 Bisacodyl (Dulcolax) 10 mg BID PO Last administered on 02/01/19 08:55; Admin Dose 10 MG; Start 01/29/19 at 09:00 Non-Formulary Medication 1 ea DAILY PO Last administered on 02/01/19 08:56; Admin Dose 1 EA; Start 01/29/19 at 09:00 Phenazopyridine HCl (Pyridium) 200 mg TID PO Last administered on 02/01/19 08:56; Admin Dose 200 MG; Start 01/30/19 at 13:00 Saccharomyces Boulardii (Florastor) 250 mg BID PO Last administered on 02/01/19 08:56; Admin Dose 250 MG; Start 01/31/19 at 16:00 Enoxaparin Sodium (Lovenox) 40 mg DAILY SC Last administered on 02/01/19 08:58; Admin Dose 40 MG; Start 01/31/19 at 15:30 Cholecalciferol (Vitamin D) 2,000 unit DAILY PO Last administered on 02/01/19at 11:14; Admin Dose 2,000 UNIT; Start 02/01/19 at 10:00 Hydromorphone HCl (Dilaudid) 0.5 mg Q4H PRN IV SEVERE PAIN LEVEL 7-10; Start 02/01/19 at 19:30 Hydromorphone HCl (Dilaudid) 2 mg Q6H PRN PO PAIN LEVEL 4-6; Start 02/01/19 at 18:00 Sodium Chloride 1,000 ml @ 50 mls/hr Q20H IV ; Start 02/02/19 at 10:30 Lorazepam (Ativan) 1 mg Q4H PRN IV ANXIETY; Start 02/02/19 at 14:30 Clonidine (Catapres) 0.1 mg Q6H PRN PO HIGH BP, SBP > 16; Start 02/02/19 at 14:30 Clonidine HCl (Catapres-Tts 1 Patch) 1 patch Q7D TRANSDERM ; Start 02/02/19 at 15:30 Olanzapine (Zyprexa Zydis) 5 mg DAILY ODT ; Start 02/02/19 at 15:30 HEIDY BACA NP Feb 02, 2019 15:03
[2019-02-02] MEDS ORDERED: CLONIDINE 0.1 MG/24 HR PATCH TRANSDERM SCH (15:30)
[2019-02-02] MEDS: OLANZAPINE (ODT) 5 MG TAB ODT SCH (15:30)
[2019-02-02] MEDS: PROMETHAZINE 25 MG TAB PO SCH (20:32)
[2019-02-02 23:00] VITALS: BP 225/118; PULSE 87
[2019-02-02] MEDS: HYDROmorphONE 0.5 MG/0.5 ML SYG IV PRN (23:26)
[2019-02-02] MEDS ORDERED: hydrALAzine 20 MG INJ IV PRN (23:30)
[2019-02-03] VITALS (31 sets, daily range): BP systolic 71–247; BP diastolic 50–208; PULSE 80–154; RESP 10–33
[2019-02-03] MEDS: LORAZEPAM 2 MG INJ IV PRN ×2 (01:39→14:48)
[2019-02-03] MEDS ORDERED: hydrALAzine 20 MG INJ IV ONE (03:52)
[2019-02-03] MEDS ORDERED: hydrALAzine 20 MG INJ IV PRN (05:30)
[2019-02-03] MEDS: SOD CHLORIDE 0.9% 1,000 ML IV SCH (06:30)
[2019-02-03] MEDS: PANTOPRAZOLE (EC) 40 MG TAB PO SCH (06:46)
[2019-02-03] MEDS ORDERED: DILTIAZEM 25 MG INJ IV PRN (08:00)
[2019-02-03] MEDS: PHENAZOPYRIDINE 200 MG TAB PO SCH ×3 (09:00→23:28)
[2019-02-03] MEDS: SACCHAROMYCES BOULARDII 250 MG CAP PO SCH ×2 (09:00→23:27)
[2019-02-03] MEDS: AMITRIPTYLINE 10 MG TAB PO SCH ×2 (09:00→23:27)
[2019-02-03] MEDS: OLANZAPINE (ODT) 5 MG TAB ODT SCH (09:00)
[2019-02-03] MEDS: CHOLECALCIFEROL 2,000 UNIT CAP PO SCH (09:00)
[2019-02-03] MEDS: TRULANCE 3 MG PO SCH (09:00)
[2019-02-03] MEDS: MIDODRINE 5 MG TAB PO SCH (09:00)
[2019-02-03] MEDS: BISACODYL (EC) 5 MG TAB PO SCH ×2 (09:00→23:28)
[2019-02-03] MEDS: CEFEPIME 1GM/50 ML (PMX) 50 ML IVPB SCH ×2 (09:21→21:01)
[2019-02-03] MEDS: ENOXAPARIN 40 MG/0.4 ML SYG SC SCH (09:32)
[2019-02-03] MEDS: DIAZEPAM 5 MG TAB PO SCH ×4 (09:41→23:27)
[2019-02-03] MEDS ORDERED: LIDOCAINE 1% (MPF) 5 ML VIAL SC ONE (12:00)
[2019-02-03] MEDS ORDERED: CLONIDINE 0.1 MG/24 HR PATCH TRANSDERM SCH (12:00)
[2019-02-03] MEDS ORDERED: niCARdipine-NS 0.1MG/ML DRIP 200 ML IV SCH (12:00)
[2019-02-03] MEDS ORDERED: SODIUM CHLORIDE 0.45% 500 ML BAG IV* ONE (12:00)
[2019-02-03] MEDS ORDERED: AMIODARONE 150MG/D5W BOLUS 100 ML IV ONE (12:30)
[2019-02-03] MEDS ORDERED: METOPROLOL 5 MG INJ IV PRN (12:30)
[2019-02-03] MEDS ORDERED: AMIODARONE 900 MG in DEXTROSE 5% 482 ML IV SCH (13:10)
--- NOTE | 2019-02-03 13:26 | PN ---
Date/Time of Note Date/Time of Note DATE: 02/03/19 TIME: 13:24 Assessment/Plan VTE Prophylaxis Risk score (from Ns)>0 risk: 5 [place] [facility] [place] contraindicated: other Pharmacological prophylaxis: LMWH Lines/Catheters IV Catheter Type (from [facility]): Saline Lock Assessment/Plan Hospital Course 1. Sepsis. WBC is rising. Recurrent urinary tract infection. The patient has history of recurrent urinary tract infections in the past. Drain through the ileostomy. The patient had multidrug-resistant urinary tract infection in the past. ucx+GNR, NOW with proteus 2. Pain control with bladder spasm. 3. Autonomic dysreflexia. 4. Bedbound state. 5. History of incomplete quadriplegia. 6. Labile hypertension. 7. Depression. 8. Anxiety. 9. Gastroesophageal reflux disease. 10. diarrhea 11. Anemia 12. Acute psychiatric decompensation Assessment/Plan -icu care -pt need a PICC line, central line or Port-a cath. communicated with dr Conn in case of failure of PICC line placement -Zyprexa daily -CT scan head -pt is hallucinating _ID is on case -he is refusing BP meds --Proteus sensitive to amikacin/cefepime/meropenem -Continue with the cefepime 1 g every 12 for total 7-day course - stool C. difficile neg -c/w Florastor - Dilaudid 4 mg po q 6 prn, Zanaflex , Valium. - pt was seen by Dr Cavanaugh, pain control> will fu his recs - cw Pyridium. - GI proph. Protonix -DVT proph. Lovenox Result Diagram: 02/03/19 0624 02/03/19 0624 Results 24hrs Laboratory Tests Test 02/03/19 06:24 02/03/19 09:25 White Blood Count 14.4 #H Red Blood Count 4.45 L Hemoglobin 13.1 L Hematocrit 39.7 L Mean Corpuscular Volume 89.2 Mean Corpuscular Hemoglobin 29.4 Mean Corpuscular Hemoglobin Concent 33.0 Red Cell Distribution Width 16.0 H Platelet Count 376 # Mean Platelet Volume 10.9 H Immature Granulocytes % 0.600 H Neutrophils % 85.1 H Lymphocytes % 7.6 L Monocytes % 6.4 Eosinophils % 0.0 Basophils % 0.3 Nucleated Red Blood Cells % 0.0 Immature Granulocytes # 0.080 H Neutrophils # 12.3 H Lymphocytes # 1.1 Monocytes # 0.9 Eosinophils # 0.0 Basophils # 0.0 Nucleated Red Blood Cells # 0.0 Sodium Level 156 H Potassium Level 4.1 Chloride Level 124 H Carbon Dioxide Level 15 L Anion Gap 17 H Blood Urea Nitrogen 27 H Creatinine 0.59 L Est Glomerular Filtrat Rate mL/min > 60 Glucose Level 135 Calcium Level 11.0 H Iron Level 35 Total Iron Binding Capacity 338 Percent Iron Saturation 10 L Vitamin D 1,25-Dihydroxy 43.0 Lactic Acid Level 2.6 *H Subjective 24 Hr Interval Summary Free Text/Dictation hallucinations Musculoskeletal: no complaints Exam/Review of Systems Exam Vitals Vital Signs Date Temp Pulse Resp B/P (MAP) Pulse Ox O2 O2 Flow FiO2 Time Delivery Rate 02/03/19 96 08:00 02/03/19 98.6 19 210/116 96 07:58 (147) 02/03/19 Room Air 07:46 Intake and Output 02/02/19 02/02/19 02/03/19 1515:00 23:00 07:00 IntakeIntake Total 50 ml 1000 ml OutputOutput Total 400 ml BalanceBalance 50 ml 600 ml Exam pale Constitutional: alert Neck: supple, other (surgical wounds) Respiratory: diminished breath sounds Cardiovascular: regular rate and rhythm Gastrointestinal: soft, surgical scars, other (colonoscomy with pouch) Genitourinary - Male: other (illeal pouch) Musculoskeletal: muscle weakness Results Results 24hrs Laboratory Tests Test 02/03/19 06:24 02/03/19 09:25 White Blood Count 14.4 #H Red Blood Count 4.45 L Hemoglobin 13.1 L Hematocrit 39.7 L Mean Corpuscular Volume 89.2 Mean Corpuscular Hemoglobin 29.4 Mean Corpuscular Hemoglobin Concent 33.0 Red Cell Distribution Width 16.0 H Platelet Count 376 # Mean Platelet Volume 10.9 H Immature Granulocytes % 0.600 H Neutrophils % 85.1 H Lymphocytes % 7.6 L Monocytes % 6.4 Eosinophils % 0.0 Basophils % 0.3 Nucleated Red Blood Cells % 0.0 Immature Granulocytes # 0.080 H Neutrophils # 12.3 H Lymphocytes # 1.1 Monocytes # 0.9 Eosinophils # 0.0 Basophils # 0.0 Nucleated Red Blood Cells # 0.0 Sodium Level 156 H Potassium Level 4.1 Chloride Level 124 H Carbon Dioxide Level 15 L Anion Gap 17 H Blood Urea Nitrogen 27 H Creatinine 0.59 L Est Glomerular Filtrat Rate mL/min > 60 Glucose Level 135 Calcium Level 11.0 H Iron Level 35 Total Iron Binding Capacity 338 Percent Iron Saturation 10 L Vitamin D 1,25-Dihydroxy 43.0 Lactic Acid Level 2.6 *H Medications Medication Current Medications Amitriptyline HCl (Elavil) 10 mg QAM PO Last administered on 02/01/19 08:55; Admin Dose 10 MG; Start 01/29/19 at 09:00 Amitriptyline HCl (Elavil) 30 mg QHS PO Last administered on 01/31/19 20:26; Admin Dose 30 MG; Start 01/29/19 at 21:00 Diazepam (Valium) 5 mg QID PO Last administered on 02/03/19 09:41; Admin Dose 5 MG; Start 01/28/19 at 23:00 Midodrine (Proamatine) 5 mg DAILY PO Last administered on 02/01/19 08:55; Admin Dose 5 MG; Start 01/29/19 at 09:00 Ondansetron HCl (Zofran Tab) 4 mg Q6 PRN PO NAUSEA AND/OR VOMITING Last administered on 02/01/19 09:00; Admin Dose 4 MG; Start 01/28/19 at 23:00 Pantoprazole (Protonix Tab) 40 mg AC BREAKFAST PO Last administered on 02/01/19 06:04; Admin Dose 40 MG; Start 01/29/19 at 07:00 Promethazine HCl (Phenergan) 25 mg QHS PO Last administered on 01/31/19 20:26; Admin Dose 25 MG; Start 01/29/19 at 21:00 Tizanidine HCl (Zanaflex) 4 mg Q8H PRN PO SPASTICITY Last administered on 02/01/19 16:42; Admin Dose 4 MG; Start 01/28/19 at 23:00 Acetaminophen (Tylenol Tab) 650 mg Q6H PRN PO MILD PAIN(1-3)OR ELEVATED TEMP Last administered on 01/30/19 01:56; Admin Dose 650 MG; Start 01/28/19 at 23:00 Cefepime HCl 50 ml @ 100 mls/hr Q12 IVPB Last administered on 02/03/19 09:21; Admin Dose 100 MLS/HR; Start 01/29/19 at 09:00 Bisacodyl (Dulcolax) 10 mg BID PO Last administered on 02/01/19 08:55; Admin Dose 10 MG; Start 01/29/19 at 09:00 Non-Formulary Medication 1 ea DAILY PO Last administered on 02/01/19 08:56; Admin Dose 1 EA; Start 01/29/19 at 09:00 Phenazopyridine HCl (Pyridium) 200 mg TID PO Last administered on 02/01/19 08:56; Admin Dose 200 MG; Start 01/30/19 at 13:00 Saccharomyces Boulardii (Florastor) 250 mg BID PO Last administered on 02/01/19 08:56; Admin Dose 250 MG; Start 01/31/19 at 16:00 Enoxaparin Sodium (Lovenox) 40 mg DAILY SC Last administered on 02/03/19 09:32; Admin Dose 40 MG; Start 01/31/19 at 15:30 Cholecalciferol (Vitamin D) 2,000 unit DAILY PO Last administered on 02/01/19 11:14; Admin Dose 2,000 UNIT; Start 02/01/19 at 10:00 Hydromorphone HCl (Dilaudid) 0.5 mg Q4H PRN IV SEVERE PAIN LEVEL 7-10 Last administered on 02/02/19 23:26; Admin Dose 0.5 MG; Start 02/01/19 at 19:30 Hydromorphone HCl (Dilaudid) 2 mg Q6H PRN PO PAIN LEVEL 4-6; Start 02/01/19 at 18:00 Sodium Chloride 1,000 ml @ 50 mls/hr Q20H IV Last administered on 02/02/19 17:17; Admin Dose 50 MLS/HR; Start 02/02/19 at 10:30 Lorazepam (Ativan) 1 mg Q4H PRN IV ANXIETY Last administered on 02/03/19 01:39; Admin Dose 1 MG; Start 02/02/19 at 14:30 Clonidine (Catapres) 0.1 mg Q6H PRN PO HIGH BP, SBP > 16; Start 02/02/19 at 14:30 Olanzapine (Zyprexa Zydis) 5 mg DAILY ODT ; Start 02/02/19 at 15:30 Hydralazine HCl (Apresoline) 20 mg Q6H PRN IV sbp > 160 Last administered on 02/03/19at 11:36; Admin Dose 20 MG; Start 02/03/19 at 05:30 Diltiazem HCl (Cardizem Iv) 10 mg Q6 PRN IV tachycardia Last administered on 02/03/19at 09:21; Admin Dose 10 MG; Start 02/03/19 at 08:00 Clonidine HCl (Catapres-Tts 1 Patch) 1 patch Q7D TRANSDERM Last administered on 02/03/19at 12:53; Admin Dose 1 PATCH; Start 02/03/19 at 12:00 Nicardipine HCl 200 ml @ 50 mls/hr TITRATE IV ; Start 02/03/19 at 12:00 Amiodarone HCl 900 mg/Dextrose 500 ml @ 0 mls/hr Q0M IV ; Start 02/03/19 at 13:10; Stop 02/04/19 at 13:09 Metoprolol Tartrate (Lopressor) 5 mg Q4 PRN IV HR>110 Hold SBP<100; Start 02/03/19 at 12:30 LUZ DOMÍNGUEZ Feb 03, 2019 13:26
[2019-02-03] MEDS ORDERED: VANCOMYCIN IV PER PHARMACY XX SCH (14:00)
[2019-02-03] MEDS ORDERED: DEXTROSE 5%-0.45% NACL 1,000 ML IV SCH (14:00)
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
[2019-02-03] MEDS: HYDROmorphONE 0.5 MG/0.5 ML SYG IV PRN (15:22)
--- NOTE | 2019-02-03 15:30 | RADRPT ---
Vent Rate: 143 bpm RR Interval: [address] Interval: 133 msec QRS Duration: 78 msec QT Interval: 284 msec QTC Interval: 438 msec P-R-T [place]: 64 - 226 - 88 degrees Sinus tachycardia...rate> 99 Ventricular premature complex...V complex w/ short R-R interval Aberrant complex...small R-R variation, aberrant QRS Left atrial enlargement...P, P'>60mS, <-0.15mV V1 Probable right ventricular hypertrophy...prominent R or R' w/ RAD or MARIA G Inferior infarct, old...Q >35mS, II III aVF Lateral wall also involved...lat Q or ST-T abnormalities Electronically Signed By: Catracho Rocha
[2019-02-03] MEDS ORDERED: CASPOFUNGIN 70 MG in SOD CHLORIDE 0.9% 250 ML IVPB ONE (16:00)
[2019-02-03] MEDS ORDERED: VANCOMYCIN HCL 1.25 GM in SOD CHLORIDE 0.9% 250 ML IVPB SCH (16:00)
--- NOTE | 2019-02-03 16:18 | CONS ---
DATE OF ADMISSION: 01/29/2019 DATE OF CONSULTATION: 02/03/2019 TYPE OF CONSULTATION: Cardiology. REASON FOR CONSULTATION: Recurrent bouts of tachycardia, hypertension, uncontrolled. REQUESTING PHYSICIAN: Moises Lewis MD HISTORY OF PRESENT ILLNESS: Mr. Beasley is a 48-year-old male with a history of quadriplegia, bed b ound state, recurrent UTIs, autonomic dysreflexia, labile hypertension, gastroesophageal reflux disea se who initially presented 01/28/2019 with complaints of abdominal pain described as some muscle cram ping ongoing for multiple days prior. The patient upon arrival was noted to have recurrent UTI and w as admitted to the med/surg floor and was initiated on antibiotic therapy. The patient has been cons ulted by ID services and due to finding of multidrug resistant organism Proteus, the patient was plac ed on cefepime and had a p.r.n. midodrine actually placed due to labile blood pressures and was on a clonidine patch that was held. Today, the patient was noted to have altered mental state and did hav e recurrent bouts of tachycardia into the 150s and then dropping back down to the 70s and 80s. The p thanh was not on monitor floor so he has been transferred to the ICU due to bed availability, where since arrival, he continues to have recurrent bouts of narrow complex tachyarrhythmia up to the 150s and then return to normal rhythm down into the 60s at times. The patient continues to have uncontrol led systolic blood pressure and have worsened. The patient is mainly nonresponsive at this time with his eyes open. PAST MEDICAL HISTORY: As above in HPI. MEDICATIONS CURRENTLY IN HOSPITAL: 1. To start on nicardipine drip. 2. Diltiazem IV push p.r.n. 3. Hydralazine 20 mg IV q.6 p.r.n. 4. Zyprexa. 5. Ativan. 6. Clonidine. 7. Vitamin D. 8. Lovenox 40 mg subcutaneously daily. 9. Pyridium. 10. Elavil. 11. Phenergan. 12. P.r.n. midodrine. 13. Cefepime. 14. Protonix. 15. Zanaflex. 16. Tylenol p.r.n. ALLERGIES: REGLAN. SOCIAL HISTORY: No current tobacco, EtOH or illicit drug use. FAMILY HISTORY: No history of sudden cardiac or early CAD. REVIEW OF SYSTEMS: As above in HPI. CONSTITUTIONAL: No current fevers, but diaphoretic. PULMONARY: No current signs of respiratory compromise. GASTROINTESTINAL: No vomiting, but presented with GI pain. GENITOURINARY: UTI, multidrug resistant. PSYCHIATRIC: No documented psych history. NEUROLOGIC: History of quadriplegia and now altered mental state. CARDIOVASCULAR: Tachycardia. PHYSICAL EXAMINATION: VITAL SIGNS: Temperature of 98.6, blood pressure most recently 210/116, pulse 80, respiratory rate 1 9, saturating 98%, going up and down between 60s, 70s, 80s up to 150. GENERAL: The patient's eyes open, noncommunicative, nonresponsive. NECK: JVP is approximately 9 cm of water. CHEST: Upper airway transmitted rhonchus sounds. HEART: Currently regular rate and rhythm. Normal S1, S2, I/ systolic murmur. ABDOMEN: Positive bowel sounds, soft. EXTREMITIES: No significant pitting edema, 1+ pulses bilateral posterior tibial. LABORATORY DATA: Most recently from 02/03/2019, white blood cell count 14.4, hemoglobin 13.1, platel et count 376. Sodium 156, potassium 4.1, creatinine 0.59, BUN of 27. Lactic acid of 2.6. Calcium o f 11. IMAGING STUDIES: No imaging studies for my review at this time. ELECTROCARDIOGRAM: No electrocardiogram for my review at this time. IMPRESSION: 1. Recurrent bouts of tachyarrhythmia consistent with supraventricular tachycardia, question if trul y a sinus tachycardia versus likely paroxysmal atrial flutter or atrioventricular amilcar reentrant tac hycardia, atrial tachycardia. 2. Hypertension, uncontrolled currently consistent with hypertensive emergency, unclear etiology in question, rule out cerebrovascular accident in the setting of altered mental state and acute increasi ng blood pressures. 3. Altered mental state/encephalopathy. 4. urinary tract infection, multidrug resistant. 5. Quadriplegia. 6. Psychiatric disorder. 7. Hypernatremia. 8. Leukocytosis, new. 9. Anemia, mild. 10. Abnormal electrocardiogram with inferior and anteroseptal Q's, poor R-wave progression across th e anterior precordial leads. Assess for acute coronary syndrome. RECOMMENDATIONS: 1. At this time, I agree with reinitiation of the patient's baseline clonidine patch and follow bloo d pressure closely and also possible initiation of nicardipine and I agree with this for control of s ignificantly blood pressure. 2. We will continue to use p.r.n. hydralazine and for rate control that was felt was necessary. 3. We will consider initiation of amiodarone in an attempt to maintain the patient in a sinus rhythm at this time. 4. Complete a rule out for myocardial infarction to ensure the patient's coughing symptoms are not r esult in acute coronary syndrome, acute myocardial infarction. 5. We would recommend head CT to rule out acute CVA. 6. Continue the patient's antibiotics and follow up all culture data. 7. Continue to check serial EKGs, to assess for significant ongoing changes. 8. Check TSH to ensure subclinical hyperthyroid is not contributing to recurrent bouts of tachyarrhy thmia. Thank you for allowing me to take part in the care of this patient. I will continue to follow him cl osely with you with further recommendations will be made [facility] Dictated By: JUMA BUENO/WILLIAM Conf#: [id number] DID#: [id number] CC: MOISES LEWIS MD;*EndCC*
[2019-02-03] MEDS ORDERED: AMIKACIN 500 MG in DEXTROSE 5% 100 ML IVPB ONE (17:00)
[2019-02-03] MEDS: PROMETHAZINE 25 MG TAB PO SCH (23:27)
[2019-02-04] VITALS (46 sets, daily range): BP systolic 76–164; BP diastolic 55–111; PULSE 68–111; RESP 13–28
[2019-02-04] MEDS: VANCOMYCIN 1 GM 250 ML IVPB SCH ×2 (04:53→17:33)
[2019-02-04] MEDS: CHOLECALCIFEROL 2,000 UNIT CAP PO SCH (09:21)
[2019-02-04] MEDS: CEFEPIME 1GM/50 ML (PMX) 50 ML IVPB SCH ×2 (09:21→20:57)
[2019-02-04] MEDS: MIDODRINE 5 MG TAB PO SCH (09:21)
[2019-02-04] MEDS: PANTOPRAZOLE (EC) 40 MG TAB PO SCH (09:22)
[2019-02-04] MEDS: SACCHAROMYCES BOULARDII 250 MG CAP PO SCH ×2 (09:22→20:58)
[2019-02-04] MEDS: OLANZAPINE (ODT) 5 MG TAB ODT SCH (09:22)
[2019-02-04] MEDS: BISACODYL (EC) 5 MG TAB PO SCH ×2 (09:22→20:58)
[2019-02-04] MEDS: AMITRIPTYLINE 10 MG TAB PO SCH ×2 (09:22→20:58)
[2019-02-04] MEDS: ENOXAPARIN 40 MG/0.4 ML SYG SC SCH (09:24)
[2019-02-04] MEDS: HYDROmorphONE 0.5 MG/0.5 ML SYG IV PRN ×2 (09:51→13:51)
[2019-02-04] MEDS: DIAZEPAM 5 MG TAB PO SCH ×4 (09:51→20:58)
[2019-02-04] MEDS: PHENAZOPYRIDINE 200 MG TAB PO SCH ×3 (09:58→20:58)
[2019-02-04] MEDS: TRULANCE 3 MG PO SCH (10:00)
--- NOTE | 2019-02-04 10:26 | CONS ---
Assessment/Plan Assessment/Plan Hospital Course (Demo Recall) IMPRESSION: 1. Recurrent bouts of tachyarrhythmia consistent with supraventricular tachycardia, question if truly a sinus tachycardia versus likely paroxysmal atrial flutter or atrioventricular amilcar reentrant tachycardia, atrial tachycardia.- now improved on amiodarone 2. Hypertension, uncontrolled currently consistent with hypertensive emergency, unclear etiology in question, rule out cerebrovascular accident in the setting of altered mental state and acute increasing blood pressures.-labile but improved on clonidine TTS 3. Altered mental state/encephalopathy-overall improved 4. urinary tract infection, multidrug resistant. 5. Quadriplegia. 6. Psychiatric disorder. 7. Hypernatremia-slowly improving 8. Leukocytosis, new. 9. Anemia, mild. 10. Abnormal electrocardiogram with inferior and anteroseptal Q's, poor R-wave progression across the anterior precordial leads. -neg trop x 3 Recc: -ICU -Continue amiodarone wit transition to PO -Continue abx's and f/u cx data -free water for elevated NA -Continue abx's and f/u cx data Consultation Date/Type/Reason Admit Date/Time Jan 29, 2019 at 16:47 Initial Consult Date 02/03/19 Type of Consult Cardiology Reason for Consultation cardiac arrythmia Requesting Provider: BRYANT LEWIS Date/Time of Note DATE: 02/04/19 TIME: 10:19 Exam/Review of Systems Vital Signs Vitals Vital Signs Date Temp Pulse Resp B/P (MAP) Pulse Ox O2 O2 Flow FiO2 Time Delivery Rate 02/04/19 77 08:00 02/04/19 98.0 23 157/91 96 Room Air 08:00 (113) Intake and Output 02/03/19 02/03/19 02/04/19 1515:00 23:00 07:00 IntakeIntake Total 763.30 ml 646.62 ml OutputOutput Total 1100 ml 255 ml 165 ml BalanceBalance -1100 ml 508.30 ml 481.62 ml Exam Exam Review of Systems: CONSTITUTIONAL: No fevers, chills. PULMONARY: No sob CARDIOVASCULAR: No chest pain/palpitations GASTROINTESTINAL: No nausea/vomiting. GENITOURINARY: No hematuria/dysuria. MUSCULOSKELETAL: No myagias/arthalgias. PSYCHIATRIC: The patient denies depression. NEUROLOGIC: No weakness Constitutional: alert (arousable) Psych: no complaints Head: normocephalic ENMT: mucosa pink and moist Neck: supple Respiratory: clear to auscultation Cardiovascular: regular rate and rhythm Gastrointestinal: soft, non-tender Musculoskeletal: muscle tone (normal) Extremities: edema (none) Neurological: other (No focal deficits) Labs Result Diagram: 02/04/19 0830 02/03/19 1656 Results 24hrs Laboratory Tests Test 02/03/19 16:56 02/04/19 00:18 02/04/19 05:24 02/04/19 08:30 Sodium Level 152 H Potassium Level 3.5 Chloride Level 123 H Carbon Dioxide Level 14 L Anion Gap 15 H Blood Urea Nitrogen 30 H Creatinine 0.61 Est Glomerular > 60 Filtrat Rate mL/min Glucose Level 132 Calcium Level 9.5 Creatine Kinase 97 165 138 Creatine Kinase Index 3.7 3.0 2.9 Creatinine Kinase MB 3.59 H 4.95 H 4.03 H (Mass) Troponin I 0.020 0.027 0.031 Lactic Acid Level 1.4 White Blood Count 12.5 H Red Blood Count 3.79 L Hemoglobin 11.1 L Hematocrit 34.8 L Mean Corpuscular 91.8 Volume Mean Corpuscular 29.3 Hemoglobin Mean Corpuscular 31.9 L Hemoglobin Concent Red Cell Distribution 16.9 H Width Platelet Count 289 # Mean Platelet Volume 11.6 H Immature Granulocytes 0.600 H % Neutrophils % 75.9 Lymphocytes % 13.9 L Monocytes % 9.1 Eosinophils % 0.0 Basophils % 0.5 Nucleated Red Blood 0.0 Cells % Immature Granulocytes 0.070 H # Neutrophils # 9.5 H Lymphocytes # 1.7 Monocytes # 1.1 H Eosinophils # 0.0 Basophils # 0.1 Nucleated Red Blood 0.0 Cells # Medications Medications Current Medications Amitriptyline HCl (Elavil) 10 mg QAM PO Last administered on 02/04/19at 09:22; Admin Dose 10 MG; Start 01/29/19 at 09:00 Amitriptyline HCl (Elavil) 30 mg QHS PO Last administered on 02/03/19at 23:27; Admin Dose 30 MG; Start 01/29/19 at 21:00 Diazepam (Valium) 5 mg QID PO Last administered on 02/04/19at 09:51; Admin Dose 5 MG; Start 01/28/19 at 23:00 Midodrine (Proamatine) 5 mg DAILY PO Last administered on 02/04/19 09:21; Admin Dose 5 MG; Start 01/29/19 at 09:00 Ondansetron HCl (Zofran Tab) 4 mg Q6 PRN PO NAUSEA AND/OR VOMITING Last administered on 02/01/19 09:00; Admin Dose 4 MG; Start 01/28/19 at 23:00 Pantoprazole (Protonix Tab) 40 mg AC BREAKFAST PO Last administered on 02/04/19 09:22; Admin Dose 40 MG; Start 01/29/19 at 07:00 Promethazine HCl (Phenergan) 25 mg QHS PO Last administered on 02/03/19 23:27; Admin Dose 25 MG; Start 01/29/19 at 21:00 Tizanidine HCl (Zanaflex) 4 mg Q8H PRN PO SPASTICITY Last administered on 02/01/19 16:42; Admin Dose 4 MG; Start 01/28/19 at 23:00 Acetaminophen (Tylenol Tab) 650 mg Q6H PRN PO MILD PAIN(1-3)OR ELEVATED TEMP Last administered on 01/30/19 01:56; Admin Dose 650 MG; Start 01/28/19 at 23:00 Cefepime HCl 50 ml @ 100 mls/hr Q12 IVPB Last administered on 02/04/19 09:21; Admin Dose 100 MLS/HR; Start 01/29/19 at 09:00 Bisacodyl (Dulcolax) 10 mg BID PO Last administered on 02/04/19 09:22; Admin Dose 10 MG; Start 01/29/19 at 09:00 Non-Formulary Medication 1 ea DAILY PO Last administered on 02/01/19 08:56; Admin Dose 1 EA; Start 01/29/19 at 09:00 Phenazopyridine HCl (Pyridium) 200 mg TID PO Last administered on 02/04/19 09:58; Admin Dose 200 MG; Start 01/30/19 at 13:00 Saccharomyces Boulardii (Florastor) 250 mg BID PO Last administered on 02/04/19 09:22; Admin Dose 250 MG; Start 01/31/19 at 16:00 Enoxaparin Sodium (Lovenox) 40 mg DAILY SC Last administered on 02/04/19 09:24; Admin Dose 40 MG; Start 01/31/19 at 15:30 Cholecalciferol (Vitamin D) 2,000 unit DAILY PO Last administered on 02/04/19 09:21; Admin Dose 2,000 UNIT; Start 02/01/19 at 10:00 Hydromorphone HCl (Dilaudid) 0.5 mg Q4H PRN IV SEVERE PAIN LEVEL 7-10 Last administered on 02/04/19 09:51; Admin Dose 0.5 MG; Start 02/01/19 at 19:30 Hydromorphone HCl (Dilaudid) 2 mg Q6H PRN PO PAIN LEVEL 4-6; Start 02/01/19 at 18:00 Lorazepam (Ativan) 1 mg Q4H PRN IV ANXIETY Last administered on 02/03/19 14:48; Admin Dose 1 MG; Start 02/02/19 at 14:30 Clonidine (Catapres) 0.1 mg Q6H PRN PO HIGH BP, SBP > 16; Start 02/02/19 at 14:30 Olanzapine (Zyprexa Zydis) 5 mg DAILY ODT Last administered on 02/04/19 09:22; Admin Dose 5 MG; Start 02/02/19 at 15:30 Hydralazine HCl (Apresoline) 20 mg Q6H PRN IV sbp > 160 Last administered on 02/03/19 11:36; Admin Dose 20 MG; Start 02/03/19 at 05:30 Diltiazem HCl (Cardizem Iv) 10 mg Q6 PRN IV tachycardia Last administered on 02/03/19 09:21; Admin Dose 10 MG; Start 02/03/19 at 08:00 Clonidine HCl (Catapres-Tts 1 Patch) 1 patch Q7D TRANSDERM Last administered on 02/03/19 12:53; Admin Dose 1 PATCH; Start 02/03/19 at 12:00 Nicardipine HCl 200 ml @ 50 mls/hr TITRATE IV ; Start 02/03/19 at 12:00 Amiodarone HCl 900 mg/Dextrose 500 ml @ 0 mls/hr Q0M IV Last administered on 02/03/19 17:07; Admin Dose 33.3 MLS/HR; Start 02/03/19 at 13:10; Stop 02/04/19 at 13:09 Metoprolol Tartrate (Lopressor) 5 mg Q4 PRN IV HR>110 Hold SBP<100; Start 02/03/19 at 12:30 Dextrose/Sodium Chloride 1,000 ml @ 40 mls/hr Q24H IV Last administered on 02/03/19at 16:00; Admin Dose 40 MLS/HR; Start 02/03/19 at 14:00 Vancomycin HCl (Vanco Iv Per Pharmacy) VANCOMYCIN PER PHARMACY PER PROTOCOL XX ; Start 02/03/19 at 14:00 Vancomycin HCl 250 ml @ 125 mls/hr Q12H IVPB Last administered on 02/04/19at 04:53; Admin Dose 125 MLS/HR; Start 02/04/19 at 05:00 JUMA IRWIN Feb 04, 2019 10:26
--- NOTE | 2019-02-04 10:31 | PN ---
Date/Time of Note Date/Time of Note DATE: 02/04/19 TIME: 10:26 Assessment/Plan VTE Prophylaxis Risk score (from Ns)>0 risk: 8 SCD applied (from [facility] [place]): Yes Pharmacological prophylaxis: NA/contraindicated Pharm contraindication: low risk/ambulating Lines/Catheters IV Catheter Type (from [facility]): Saline Lock Assessment/Plan Assessment/Plan Hospital Course #. Sepsis. WBC is rising. Recurrent urinary tract infection. The patient has history of recurrent urinary tract infections in the past. Drain through the ileostomy. The patient had multidrug-resistant urinary tract infection in the past. ucx+GNR, NOW with proteus # Uncontrolled HTN ? autonomic dysreflexia # Afib with RVR # Hypernatremia # Pain control with bladder spasm. # Autonomic dysreflexia. #. Bedbound state. wih incomplete quadriplegia #. History of incomplete quadriplegia. # Labile hypertension. #. Depression. # Anxiety. # Gastroesophageal reflux disease. #. diarrhea #. Anemia # Acute psychiatric decompensation wth hallucinations Assessment/Plan -icu care - on amiod gtt - on clonidine patch -Central rd eper Dr Simms - NG tube> fu speech and swallow -Zyprexa daily and elavil -CT scan head neg - cw vancomycin/ cefepime, sp amikacin - d5w for hypernatremia - stool C. difficile neg - Dilaudid 4 mg po q 6 prn, Zanaflex , Valium. - pt was seen by Dr Cavanaugh, pain control> will fu his recs - cw Pyridium. - GI proph. Protonix -DVT proph. Lovenox Result Diagram: 02/04/19 0830 02/03/19 1656 Results 24hrs Laboratory Tests Test 02/03/19 16:56 02/04/19 00:18 02/04/19 05:24 02/04/19 08:30 Sodium Level 152 H Potassium Level 3.5 Chloride Level 123 H Carbon Dioxide Level 14 L Anion Gap 15 H Blood Urea Nitrogen 30 H Creatinine 0.61 Est Glomerular > 60 Filtrat Rate mL/min Glucose Level 132 Calcium Level 9.5 Creatine Kinase 97 165 138 Creatine Kinase Index 3.7 3.0 2.9 Creatinine Kinase MB 3.59 H 4.95 H 4.03 H (Mass) Troponin I 0.020 0.027 0.031 Lactic Acid Level 1.4 White Blood Count 12.5 H Red Blood Count 3.79 L Hemoglobin 11.1 L Hematocrit 34.8 L Mean Corpuscular 91.8 Volume Mean Corpuscular 29.3 Hemoglobin Mean Corpuscular 31.9 L Hemoglobin Concent Red Cell Distribution 16.9 H Width Platelet Count 289 # Mean Platelet Volume 11.6 H Immature Granulocytes 0.600 H % Neutrophils % 75.9 Lymphocytes % 13.9 L Monocytes % 9.1 Eosinophils % 0.0 Basophils % 0.5 Nucleated Red Blood 0.0 Cells % Immature Granulocytes 0.070 H # Neutrophils # 9.5 H Lymphocytes # 1.7 Monocytes # 1.1 H Eosinophils # 0.0 Basophils # 0.1 Nucleated Red Blood 0.0 Cells # Subjective 24 Hr Interval Summary Free Text/Dictation Pt was transferred to ICU due to uncontrolled HTN and AFIB with RVR Now on amio gtt, HR better pT opens eys, answers few questions Exam/Review of Systems Exam Vitals Vital Signs Date Temp Pulse Resp B/P (MAP) Pulse Ox O2 O2 Flow FiO2 Time Delivery Rate 02/04/19 77 08:00 02/04/19 98.0 23 157/91 96 Room Air 08:00 (113) Intake and Output 02/03/19 02/03/19 02/04/19 1515:00 23:00 07:00 IntakeIntake Total 763.30 ml 646.62 ml OutputOutput Total 1100 ml 255 ml 165 ml BalanceBalance -1100 ml 508.30 ml 481.62 ml Exam pale Constitutional: alert Neck: supple, other (surgical wounds) Respiratory: diminished breath sounds Cardiovascular: regular rate and rhythm Gastrointestinal: soft, surgical scars, other (colonotomy, ileostome Genitourinary - Male: other (illeal pouch) Musculoskeletal: muscle weakness, bed bound, Results Results 24hrs Laboratory Tests Test 02/03/19 16:56 02/04/19 00:18 02/04/19 05:24 02/04/19 08:30 Sodium Level 152 H Potassium Level 3.5 Chloride Level 123 H Carbon Dioxide Level 14 L Anion Gap 15 H Blood Urea Nitrogen 30 H Creatinine 0.61 Est Glomerular > 60 Filtrat Rate mL/min Glucose Level 132 Calcium Level 9.5 Creatine Kinase 97 165 138 Creatine Kinase Index 3.7 3.0 2.9 Creatinine Kinase MB 3.59 H 4.95 H 4.03 H (Mass) Troponin I 0.020 0.027 0.031 Lactic Acid Level 1.4 White Blood Count 12.5 H Red Blood Count 3.79 L Hemoglobin 11.1 L Hematocrit 34.8 L Mean Corpuscular 91.8 Volume Mean Corpuscular 29.3 Hemoglobin Mean Corpuscular 31.9 L Hemoglobin Concent Red Cell Distribution 16.9 H Width Platelet Count 289 # Mean Platelet Volume 11.6 H Immature Granulocytes 0.600 H % Neutrophils % 75.9 Lymphocytes % 13.9 L Monocytes % 9.1 Eosinophils % 0.0 Basophils % 0.5 Nucleated Red Blood 0.0 Cells % Immature Granulocytes 0.070 H # Neutrophils # 9.5 H Lymphocytes # 1.7 Monocytes # 1.1 H Eosinophils # 0.0 Basophils # 0.1 Nucleated Red Blood 0.0 Cells # Medications Medication Current Medications Amitriptyline HCl (Elavil) 10 mg QAM PO Last administered on 02/04/19 09:22; Admin Dose 10 MG; Start 01/29/19 at 09:00 Amitriptyline HCl (Elavil) 30 mg QHS PO Last administered on 02/03/19 23:27; Admin Dose 30 MG; Start 01/29/19 at 21:00 Diazepam (Valium) 5 mg QID PO Last administered on 02/04/19 09:51; Admin Dose 5 MG; Start 01/28/19 at 23:00 Ondansetron HCl (Zofran Tab) 4 mg Q6 PRN PO NAUSEA AND/OR VOMITING Last administered on 02/01/19 09:00; Admin Dose 4 MG; Start 01/28/19 at 23:00 Pantoprazole (Protonix Tab) 40 mg AC BREAKFAST PO Last administered on 02/04/19 09:22; Admin Dose 40 MG; Start 01/29/19 at 07:00 Promethazine HCl (Phenergan) 25 mg QHS PO Last administered on 02/03/19 23:27; Admin Dose 25 MG; Start 01/29/19 at 21:00 Tizanidine HCl (Zanaflex) 4 mg Q8H PRN PO SPASTICITY Last administered on 02/01/19 16:42; Admin Dose 4 MG; Start 01/28/19 at 23:00 Acetaminophen (Tylenol Tab) 650 mg Q6H PRN PO MILD PAIN(1-3)OR ELEVATED TEMP Last administered on 01/30/19 01:56; Admin Dose 650 MG; Start 01/28/19 at 23:00 Cefepime HCl 50 ml @ 100 mls/hr Q12 IVPB Last administered on 02/04/19 09:21; Admin Dose 100 MLS/HR; Start 01/29/19 at 09:00 Bisacodyl (Dulcolax) 10 mg BID PO Last administered on 02/04/19 09:22; Admin Dose 10 MG; Start 01/29/19 at 09:00 Non-Formulary Medication 1 ea DAILY PO Last administered on 02/01/19 08:56; Admin Dose 1 EA; Start 01/29/19 at 09:00 Phenazopyridine HCl (Pyridium) 200 mg TID PO Last administered on 02/04/19 09:58; Admin Dose 200 MG; Start 01/30/19 at 13:00 Saccharomyces Boulardii (Florastor) 250 mg BID PO Last administered on 02/04/19 09:22; Admin Dose 250 MG; Start 01/31/19 at 16:00 Enoxaparin Sodium (Lovenox) 40 mg DAILY SC Last administered on 02/04/19 09:24; Admin Dose 40 MG; Start 01/31/19 at 15:30 Cholecalciferol (Vitamin D) 2,000 unit DAILY PO Last administered on 02/04/19 09:21; Admin Dose 2,000 UNIT; Start 02/01/19 at 10:00 Hydromorphone HCl (Dilaudid) 0.5 mg Q4H PRN IV SEVERE PAIN LEVEL 7-10 Last administered on 02/04/19 09:51; Admin Dose 0.5 MG; Start 02/01/19 at 19:30 Hydromorphone HCl (Dilaudid) 2 mg Q6H PRN PO PAIN LEVEL 4-6; Start 02/01/19 at 1 8:00 Lorazepam (Ativan) 1 mg Q4H PRN IV ANXIETY Last administered on 02/03/19 14:48; Admin Dose 1 MG; Start 02/02/19 at 14:30 Clonidine (Catapres) 0.1 mg Q6H PRN PO HIGH BP, SBP > 16; Start 02/02/19 at 14:30 Olanzapine (Zyprexa Zydis) 5 mg DAILY ODT Last administered on 02/04/19 09:22; Admin Dose 5 MG; Start 02/02/19 at 15:30 Hydralazine HCl (Apresoline) 20 mg Q6H PRN IV sbp > 160 Last administered on 02/03/19 11:36; Admin Dose 20 MG; Start 02/03/19 at 05:30 Diltiazem HCl (Cardizem Iv) 10 mg Q6 PRN IV tachycardia Last administered on 02/03/19 09:21; Admin Dose 10 MG; Start 02/03/19 at 08:00 Clonidine HCl (Catapres-Tts 1 Patch) 1 patch Q7D TRANSDERM Last administered on 02/03/19at 12:53; Admin Dose 1 PATCH; Start 02/03/19 at 12:00 Amiodarone HCl 900 mg/Dextrose 500 ml @ 0 mls/hr Q0M IV Last administered on 02/03/19at 17:07; Admin Dose 33.3 MLS/HR; Start 02/03/19 at 13:10; Stop 02/04/19 at 13:09 Metoprolol Tartrate (Lopressor) 5 mg Q4 PRN IV HR>110 Hold SBP<100; Start 02/03/19 at 12:30 Vancomycin HCl (Vanco Iv Per Pharmacy) VANCOMYCIN PER PHARMACY PER PROTOCOL XX ; Start 02/03/19 at 14:00 Vancomycin HCl 250 ml @ 125 mls/hr Q12H IVPB Last administered on 02/04/19at 04:53; Admin Dose 125 MLS/HR; Start 02/04/19 at 05:00 Dextrose 1,000 ml @ 40 mls/hr Q24H IV ; Start 02/04/19 at 10:30 LILLY SIDDIQI MD Feb 04, 2019 10:31
[2019-02-04] MEDS: DEXTROSE 5% 1,000 ML IV SCH (11:05)
--- NOTE | 2019-02-04 11:51 | CONS ---
Assessment/Plan Assessment/Plan Hospital Course (Demo Recall) Patient is awake looks comfortable he is on amiodarone drip in no distress no fevers overnight he is hypothermic on blanket warmer. WBC 12.5 platelets 289 neutrophils 75.9 BUN 30 creatinine 0.61 Microbiology: Blood cultures drawn couple days ago negative preliminary Antimicrobials: patient is on vancomycin and cefepime Chest x-ray from yesterday revealed cardiomegaly with questionable aspiration Physical examination: Chronically ill appearing wasted middle-aged man who is in no distress. Head atraumatic normocephalic neck is supple chest rise symmetrical breath sounds clear. Heart: S1-S2. Abdomen soft bowel sounds present. Extremities wasted contracted Assessment: 1. Sepsis 2. Probable aspiration event 3. Recurrent UTI 4. Incomplete quadriplegia 5. Dysphagia. 6. Chronic pain syndrome Plan: Clinically stable, continue present care and antibiotics, patient failed swallow evaluation, will monitor chest x-rays Consultation Date/Type/Reason Admit Date/Time Jan 29, 2019 at 16:47 Initial Consult Date Type of Consult id Requesting Provider: BRYANT LEWIS MD Date/Time of Note DATE: 02/04/19 TIME: 11:48 Exam/Review of Systems Exam Vitals Vital Signs Date Temp Pulse Resp B/P (MAP) Pulse Ox O2 O2 Flow FiO2 Time Delivery Rate 02/04/19 88 16 95/62 (73) 98 Room Air 11:00 02/04/19 98.0 08:00 Intake and Output 02/03/19 02/03/19 02/04/19 1515:00 23:00 07:00 IntakeIntake Total 763.30 ml 646.62 ml OutputOutput Total 1100 ml 255 ml 170 ml BalanceBalance -1100 ml 508.30 ml 476.62 ml Results Result Diagram: 02/04/19 0830 02/03/19 1656 Results 24hrs Laboratory Tests Test 02/03/19 16:56 02/03/19 17:00 02/04/19 00:18 02/04/19 05:24 Sodium Level 152 H Potassium Level 3.5 Chloride Level 123 H Carbon Dioxide Level 14 L Anion Gap 15 H Blood Urea Nitrogen 30 H Creatinine 0.61 Est Glomerular > 60 Filtrat Rate mL/min Glucose Level 132 Calcium Level 9.5 Creatine Kinase 97 165 138 Creatine Kinase Index 3.7 3.0 2.9 Creatinine Kinase MB 3.59 H 4.95 H 4.03 H (Mass) Troponin I 0.020 0.027 0.031 Urine Color IVANA Urine Clarity CLOUDY A Urine pH 7.0 Urine Specific 1.016 [place] Urine Ketones 1+ H Urine Nitrite POSITIVE A Urine Bilirubin NEGATIVE Urine Urobilinogen 1+ H Urine Leukocyte NEGATIVE Esterase Urine Microscopic RBC 8 H Urine Microscopic WBC 27 H Urine Bacteria FEW A Urine Mucus FEW A Urine Hemoglobin NEGATIVE Urine Glucose NEGATIVE Urine Total Protein 3+ H Lactic Acid Level 1.4 Test 02/04/19 08:30 White Blood Count 12.5 H Red Blood Count 3.79 L Hemoglobin 11.1 L Hematocrit 34.8 L Mean Corpuscular 91.8 Volume Mean Corpuscular 29.3 Hemoglobin Mean Corpuscular 31.9 L Hemoglobin Concent Red Cell Distribution 16.9 H Width Platelet Count 289 # Mean Platelet Volume 11.6 H Immature Granulocytes 0.600 H % Neutrophils % 75.9 Lymphocytes % 13.9 L Monocytes % 9.1 Eosinophils % 0.0 Basophils % 0.5 Nucleated Red Blood 0.0 Cells % Immature Granulocytes 0.070 H # Neutrophils # 9.5 H Lymphocytes # 1.7 Monocytes # 1.1 H Eosinophils # 0.0 Basophils # 0.1 Nucleated Red Blood 0.0 Cells # Medications Medication Current Medications Amitriptyline HCl (Elavil) 10 mg QAM PO Last administered on 02/04/19 09:22; Admin Dose 10 MG; Start 01/29/19 at 09:00 Amitriptyline HCl (Elavil) 30 mg QHS PO Last administered on 02/03/19 23:27; Admin Dose 30 MG; Start 01/29/19 at 21:00 Diazepam (Valium) 5 mg QID PO Last administered on 02/04/19 09:51; Admin Dose 5 MG; Start 01/28/19 at 23:00 Ondansetron HCl (Zofran Tab) 4 mg Q6 PRN PO NAUSEA AND/OR VOMITING Last admi nistered on 02/01/19at 09:00; Admin Dose 4 MG; Start 01/28/19 at 23:00 Pantoprazole (Protonix Tab) 40 mg AC BREAKFAST PO Last administered on 02/04/19 09:22; Admin Dose 40 MG; Start 01/29/19 at 07:00 Promethazine HCl (Phenergan) 25 mg QHS PO Last administered on 02/03/19 23:27; Admin Dose 25 MG; Start 01/29/19 at 21:00 Tizanidine HCl (Zanaflex) 4 mg Q8H PRN PO SPASTICITY Last administered on 9at 16:42; Admin Dose 4 MG; Start 01/28/19 at 23:00 Acetaminophen (Tylenol Tab) 650 mg Q6H PRN PO MILD PAIN(1-3)OR ELEVATED TEMP Last administered on 01/30/19 01:56; Admin Dose 650 MG; Start 01/28/19 at 23:00 Cefepime HCl 50 ml @ 100 mls/hr Q12 IVPB Last administered on 02/04/19 09:21; Admin Dose 100 MLS/HR; Start 01/29/19 at 09:00 Bisacodyl (Dulcolax) 10 mg BID PO Last administered on 02/04/19 09:22; Admin Dose 10 MG; Start 01/29/19 at 09:00 Non-Formulary Medication 1 ea DAILY PO Last administered on 02/01/19 08:56; Admin Dose 1 EA; Start 01/29/19 at 09:00 Phenazopyridine HCl (Pyridium) 200 mg TID PO Last administered on 02/04/19 09:58; Admin Dose 200 MG; Start 01/30/19 at 13:00 Saccharomyces Boulardii (Florastor) 250 mg BID PO Last administered on 02/04/19 09:22; Admin Dose 250 MG; Start 01/31/19 at 16:00 Enoxaparin Sodium (Lovenox) 40 mg DAILY SC Last administered on 02/04/19 09 :24; Admin Dose 40 MG; Start 01/31/19 at 15:30 Cholecalciferol (Vitamin D) 2,000 unit DAILY PO Last administered on 02/04/19 09:21; Admin Dose 2,000 UNIT; Start 02/01/19 at 10:00 Hydromorphone HCl (Dilaudid) 0.5 mg Q4H PRN IV SEVERE PAIN LEVEL 7-10 Last administered on 02/04/19 09:51; Admin Dose 0.5 MG; Start 02/01/19 at 19:30 Hydromorphone HCl (Dilaudid) 2 mg Q6H PRN PO PAIN LEVEL 4-6; Start 02/01/19 at 18:00 Lorazepam (Ativan) 1 mg Q4H PRN IV ANXIETY Last administered on 02/03/19 14:48; Admin Dose 1 MG; Start 02/02/19 at 14:30 Clonidine (Catapres) 0.1 mg Q6H PRN PO HIGH BP, SBP > 16; Start 02/02/19 at 14:30 Olanzapine (Zyprexa Zydis) 5 mg DAILY ODT Last administered on 02/04/19 09:22; Admin Dose 5 MG; Start 02/02/19 at 15:30 Hydralazine HCl (Apresoline) 20 mg Q6H PRN IV sbp > 160 Last administered on 02/03/19 11:36; Admin Dose 20 MG; Start 02/03/19 at 05:30 Diltiazem HCl (Cardizem Iv) 10 mg Q6 PRN IV tachycardia Last administered on 02/03/19 09:21; Admin Dose 10 MG; Start 02/03/19 at 08:00 Clonidine HCl (Catapres-Tts 1 Patch) 1 patch Q7D TRANSDERM Last administered on 02/03/19 12:53; Admin Dose 1 PATCH; Start 02/03/19 at 12:00 Amiodarone HCl 900 mg/Dextrose 500 ml @ 0 mls/hr Q0M IV Last administered on 02/03/19 17:07; Admin Dose 33.3 MLS/HR; Start 02/03/19 at 13:10; Stop 02/04/19 at 13:09 Metoprolol Tartrate (Lopressor) 5 mg Q4 PRN IV HR>110 Hold SBP<100; Start 02/03/19 at 12:30 Vancomycin HCl (Vanco Iv Per Pharmacy) VANCOMYCIN PER PHARMACY PER PROTOCOL XX ; Start 02/03/19 at 14:00 Vancomycin HCl 250 ml @ 125 mls/hr Q12H IVPB Last administered on 02/04/19 04:53; Admin Dose 125 MLS/HR; Start 02/04/19 at 05:00 Dextrose 1,000 ml @ 40 mls/hr Q24H IV Last administered on 02/04/19 11:05; Admin Dose 40 MLS/HR; Start 02/04/19 at 10:30 Amiodarone HCl (Cordarone) 200 mg BID PO ; Start 02/04/19 at 21:00 NOÉ JUNIOR NP Feb 04, 2019 11:51
[2019-02-04] MEDS: LORAZEPAM 2 MG INJ IV PRN (12:05)
--- NOTE | 2019-02-04 14:17 | RADRPT ---
Echocardiogram Report Patient Name: Orville AMBROSIOent ID: [id number] : 1970 (48y 2m)Study Date: 02/04/2019 8:20:25 AM Gender: MAccession #: [id number] Tech: [place] Location: [facility] Ref.Physician: JUMA ROCHA Height(Cm): BSA: Weight(Kg): Quality: Technically Difficult StudyOrder Physician: JUMA ROCHA Account #: Procedures: Echocardiographic Report: Transthoracic echocardiogram with complete 2D, M-Mode, and doppler examination. Indications: Hypertension, and Tachycardia. Measurements: 2D/M Mode Doppler Measurement Value Normal Range Measurement Value Normal Range LVIDd 2D 3.5 [ 4.2 - 5.8 ] cm AV Peak Tello 1.3 [ 100.0 - 170.0 ] cm/sec LVIDs 2D 1.7 [ 2.5 - 4.0 ] cm AV Peak PG 7.0 [ 2.0 - 9.0 ] mmHg LVPWd 2D 0.8 [ 0.6 - 1.0 ] cm LVOT Peak Tello 1.2 [ 70.0 - 110.0 ] cm/sec IVSd 2D 0.9 [ 0.6 - 1.0 ] cm LVOT Peak PG 6.0 [ 2.0 - 6.0 ] mmHg AoR Diam 2D 3.2 [ 2.6 - 3.4 ] cm MV E Peak Tello 1.5 [ 60.0 - 130.0 ] cm/sec EDV 2D 51.2 [ 62.0 - 150.0 ] ml MV Decel Time 113 [ 104 - 258 ] msec ESV 2D 7.9 [ 21.0 - 61.0 ] ml EF 2D 84.6 [ 52.0 - 72.0 ] percent LA Dimen 2D 2.4 [ 3.0 - 4.0 ] cm Findings: Left Ventricle: Normal left ventricular systolic function. Normal left ventricular cavity size. Normal left ventricular wall thickness. Ejection fraction is visually estimated at 60-65 %. Abnormal Diastolic Function. Right Ventricle: Normal right ventricular size. Normal right ventricular systolic function. Left Atrium: The left atrium is normal in size. Right Atrium: The right atrium is normal in size. Mitral Valve: Normal appearance and function of the mitral valve with trace physiologic regurgitation. Aortic Valve: Normal appearance of the aortic valve. No significant aortic stenosis or insufficiency. Tricuspid Valve: Normal appearance of the tricuspid valve. Unable to obtain RVSP due to minimal presence of tricuspid regurgitation. Pulmonic Valve: Normal pulmonic valve appearance. Pericardium: Normal pericardium with no significant pericardial effusion. Aorta: Normal aortic root. IVC: Normal size and normal respiratory collapse consistent with normal right atrial pressure. Conclusions: Normal left ventricular systolic function. Normal left ventricular cavity size. Normal left ventricular wall thickness. Ejection fraction is visually estimated at 60-65 %. Abnormal Diastolic Function. Normal appearance and function of the mitral valve with trace physiologic regurgitation. Normal appearance of the tricuspid valve. Unable to obtain RVSP due to minimal presence of tricuspid regurgitation. Electronically Signed By: Juma Rocha 2019-02-04 14:17:19 PDT
[2019-02-04] MEDS: BALSAM PERU/CASTOR OIL 60 GM TUBE TOP SCH ×2 (17:33→20:57)
[2019-02-04] MEDS: AMIODARONE 200 MG TAB PO SCH (20:58)
[2019-02-04] MEDS: PROMETHAZINE 25 MG TAB PO SCH (20:58)
[2019-02-05] VITALS (30 sets, daily range): BP systolic 86–136; BP diastolic 56–92; PULSE 67–83; RESP 13–27
[2019-02-05] MEDS: TIZANIDINE 4 MG TAB PO PRN (02:03)
[2019-02-05] MEDS: LORAZEPAM 2 MG INJ IV PRN ×2 (04:41→12:40)
[2019-02-05] MEDS ORDERED: POTASSIUM CHLORIDE (SR) 20 MEQ TAB PO ONE (07:00)
[2019-02-05] MEDS ORDERED: POTASSIUM CHLORIDE 20 MEQ POWDER FOR ORAL SOLN PO PRN ×3 (07:00)
[2019-02-05] MEDS ORDERED: MAGNESIUM SULFATE 2 GM/50 ML 50 ML IVPB ONE (07:00)
[2019-02-05] MEDS: PANTOPRAZOLE (EC) 40 MG TAB PO SCH (07:23)
[2019-02-05] MEDS: HYDROmorphONE 2 MG TAB PO PRN ×2 (07:24→19:06)
--- NOTE | 2019-02-05 08:51 | CONS ---
Consult Date/Type/Reason Admit Date/Time Jan 29, 2019 at 16:47 Initial Consult Date Requesting Provider: BRYANT LEWIS MD Date/Time of Note DATE: 02/05/19 TIME: 08:50 Subjective NO acute events - K+ to be replaced - BP stable - intermittent sinus tach ROS: No fever, no chills, no nausea, no vomiting, no diarrhea/constipation - per nurse, NGT in Objective Vitals Vital Signs Date Temp Pulse Resp B/P (MAP) Pulse Ox O2 O2 Flow FiO2 Time Delivery Rate 02/05/19 78 20 122/80 98 Room Air 07:30 (94) 02/05/19 98.0 07:00 Intake and Output 02/04/19 02/04/19 02/05/19 1515:00 23:00 07:00 IntakeIntake Total 396.4 ml 560 ml 280 ml OutputOutput Total 100 ml 305 ml 995 ml BalanceBalance 296.4 ml 255 ml -715 ml Exam General: WN/WD/NAD, AOx 0 HEENT: Unicetric/atraumatic/EOMI (does not follow commands) NECK: JVD elevated, no thyromegaly - NGT Lymph: no lymphadenopathy HEART: regular with no S3, II/ systolic murmur at apex LUNGS: Coarse sounds ABD: soft, NT, ND, +BS : Intact Neuro: non focal SKIN: chronic changes EXT: trace edema Results/Medications Result Diagram: 02/05/1944702/05/198 Results 24 hrs Laboratory Tests Test 02/04/19 11:39 02/05/19 04:48 Prothrombin Time 16.7 #H Prothrombin Time Ratio 1.3 INR International Normalized Ratio 1.34 White Blood Count 7.1 # Red Blood Count 3.31 L Hemoglobin 9.9 L Hematocrit 30.8 L Mean Corpuscular Volume 93.1 Mean Corpuscular Hemoglobin 29.9 Mean Corpuscular Hemoglobin Concent 32.1 Red Cell Distribution Width 16.5 H Platelet Count 233 Mean Platelet Volume 11.6 H Immature Granulocytes % 0.300 Neutrophils % 68.0 Lymphocytes % 21.2 Monocytes % 9.3 Eosinophils % 0.4 Basophils % 0.8 Nucleated Red Blood Cells % 0.0 Immature Granulocytes # 0.020 Neutrophils # 4.9 Lymphocytes # 1.5 Monocytes # 0.7 Eosinophils # 0.0 Basophils # 0.1 Nucleated Red Blood Cells # 0.0 Sodium Level 152 H Potassium Level 2.7 *L Chloride Level 125 H Carbon Dioxide Level 18 L Anion Gap 9 # Blood Urea Nitrogen 24 H Creatinine 0.57 L Est Glomerular Filtrat Rate mL/min > 60 Glucose Level 100 Calcium Level 9.4 Phosphorus Level 3.0 Magnesium Level 1.6 L Vancomycin Level Trough 23.6 *H Home Meds Active Scripts Cholecalciferol (Vitamin D3) (VITAMIN D-3) 2,000 Unit Capsule, 4000 UNIT PO DAILY for 90 Days, CAP Prov:LUZ DOMÍNGUEZ 02/01/19 Phenazopyridine Hcl* (Phenazopyridine Hcl*) 200 Mg Tablet, 200 MG PO TID for 7 Days, TAB Prov:LUZ DOMÍNGUEZ 02/01/19 Saccharomyces Boulardii* (Florastor*) 250 Mg Cap, 250 MG PO BID for 14 Days, CAP Prov:LUZ DOMÍNGUEZ 02/01/19 Reported Medications Amitriptyline Hcl* (Amitriptyline Hcl*) 10 Mg Tablet, 30 MG PO QHS, #60 TAB 01/28/19 Amitriptyline Hcl* (Amitriptyline Hcl*) 10 Mg Tablet, 10 MG PO QAM, #30 TAB 01/28/19 Promethazine Hcl* (Phenergan*) 25 Mg Tablet, 25 MG PO QHS, TAB 01/28/19 Midodrine* (Midodrine*) 5 Mg Tablet, 5 MG PO DAILY, TAB 01/28/19 Clonidine Hcl* (Clonidine Hcl*) 0.2 Mg Tablet, 0.2 MG PO Q8H, TAB 01/28/19 Tizanidine Hcl* (Tizanidine Hcl*) 4 Mg Capsule, 4 MG PO Q8H PRN for SPASTICITY, CAP 01/28/19 Pantoprazole* (Pantoprazole*) 40 Mg Tablet.dr, 40 MG PO AC BREAKFAST, TAB 01/28/19 Plecanatide (Trulance) 3 Mg Tablet, 3 MG PO DAILY, TAB 01/28/19 Hydromorphone Hcl* (Dilaudid*) 4 Mg Tablet, 4 MG PO Q6H PRN for PAIN, TAB 01/28/19 Diazepam* (Diazepam*) 5 Mg Tablet, 5 MG PO QID, TAB 01/28/19 Ondansetron Hcl* (Zofran*) 4 Mg Tab, 4 MG PO NEEDED PRN for NAUSEA AND OR VOMITING, TAB 01/28/19 Medications Current Medications Amitriptyline HCl (Elavil) 10 mg QAM PO Last administered on 02/04/19 09:22; Admin Dose 10 MG; Start 01/29/19 at 09:00 Amitriptyline HCl (Elavil) 30 mg QHS PO Last administered on 02/04/19 20:58; Admin Dose 30 MG; Start 01/29/19 at 21:00 Diazepam (Valium) 5 mg QID PO Last administered on 02/04/19 20:58; Admin Dose 5 MG; Start 01/28/19 at 23:00 Ondansetron HCl (Zofran Tab) 4 mg Q6 PRN PO NAUSEA AND/OR VOMITING Last administered on 02/01/19 09:00; Admin Dose 4 MG; Start 01/28/19 at 23:00 Pantoprazole (Protonix Tab) 40 mg AC BREAKFAST PO Last administered on 02/05/19 07:23; Admin Dose 40 MG; Start 01/29/19 at 07:00 Promethazine HCl (Phenergan) 25 mg QHS PO Last administered on 02/04/19 20:58; Admin Dose 25 MG; Start 01/29/19 at 21:00 Tizanidine HCl (Zanaflex) 4 mg Q8H PRN PO SPASTICITY Last administered on 02/05/19 02:03; Admin Dose 4 MG; Start 01/28/19 at 23:00 Acetaminophen (Tylenol Tab) 650 mg Q6H PRN PO MILD PAIN(1-3)OR ELEVATED TEMP Last administered on 01/30/19 01:56; Admin Dose 650 MG; Start 01/28/19 at 23:00 Cefepime HCl 50 ml @ 100 mls/hr Q12 IVPB Last administered on 02/04/19 20:57; Admin Dose 100 MLS/HR; Start 01/29/19 at 09:00 Bisacodyl (Dulcolax) 10 mg BID PO Last administered on 02/04/19 20:58; Admin Dose 10 MG; Start 01/29/19 at 09:00 Non-Formulary Medication 1 ea DAILY PO Last administered on 02/04/19 10:00; Admin Dose 1 EA; Start 01/29/19 at 09:00 Phenazopyridine HCl (Pyridium) 200 mg TID PO Last administered on 02/04/19 20:58; Admin Dose 200 MG; Start 01/30/19 at 13:00 Saccharomyces Boulardii (Florastor) 250 mg BID PO Last administered on 02/04/19 20:58; Admin Dose 250 MG; Start 01/31/19 at 16:00 Enoxaparin Sodium (Lovenox) 40 mg DAILY SC Last administered on 02/04/19 09:24; Admin Dose 40 MG; Start 01/31/19 at 15:30 Cholecalciferol (Vitamin D) 2,000 unit DAILY PO Last administered on 02/04/19 09:21; Admin Dose 2,000 UNIT; Start 02/01/19 at 10:00 Hydromorphone HCl (Dilaudid) 0.5 mg Q4H PRN IV SEVERE PAIN LEVEL 7-10 Last administered on 02/04/19 13:51; Admin Dose 0.5 MG; Start 02/01/19 at 19:30 Hydromorphone HCl (Dilaudid) 2 mg Q6H PRN PO PAIN LEVEL 4-6 Last administered on 02/05/19 07:24; Admin Dose 2 MG; Start 02/01/19 at 18:00 Lorazepam (Ativan) 1 mg Q4H PRN IV ANXIETY Last administered on 02/05/19 04:41; Admin Dose 1 MG; Start 02/02/19 at 14:30 Clonidine (Catapres) 0.1 mg Q6H PRN PO HIGH BP, SBP > 16; Start 02/02/19 at 14:30 Olanzapine (Zyprexa Zydis) 5 mg DAILY ODT Last administered on 02/04/19 09:22; Admin Dose 5 MG; Start 02/02/19 at 15:30 Hydralazine HCl (Apresoline) 20 mg Q6H PRN IV sbp > 160 Last administered on 02/03/19 11:36; Admin Dose 20 MG; Start 02/03/19 at 05:30 Diltiazem HCl (Cardizem Iv) 10 mg Q6 PRN IV tachycardia Last administered on 6/9/19at 09:21; Admin Dose 10 MG; Start 02/03/19 at 08:00 Clonidine HCl (Catapres-Tts 1 Patch) 1 patch Q7D TRANSDERM Last administered on 02/03/19at 12:53; Admin Dose 1 PATCH; Start 02/03/19 at 12:00 Metoprolol Tartrate (Lopressor) 5 mg Q4 PRN IV HR>110 Hold SBP<100; Start 02/03/19 at 12:30 Vancomycin HCl (Vanco Iv Per Pharmacy) VANCOMYCIN PER PHARMACY PER PROTOCOL XX ; Start 02/03/19 at 14:00 Dextrose 1,000 ml @ 40 mls/hr Q24H IV Last administered on 02/04/19at 11:05; Admin Dose 40 MLS/HR; Start 02/04/19 at 10:30 Amiodarone HCl (Cordarone) 200 mg BID PO Last administered on 02/04/19at 20:58; Admin Dose 200 MG; Start 02/04/19 at 21:00 Magnesium Sulfate 50 ml @ 25 mls/hr ONCE ONCE IVPB Last administered on 02/05/19at 07:23; Admin Dose 25 MLS/HR; Start 02/05/19 at 07:00; Stop 02/05/19 at 08:59 Potassium Chloride (Potassium Chloride Pwd/Soln) 20 meq PER PROTOCOL PRN PO POTASSIUM REPLACEMENT PROTOCOL; Start 02/05/19 at 07:00 Potassium Chloride (Potassium Chloride Pwd/Soln) 30 meq PER PROTOCOL PRN PO POTASSIUM REPLACEMENT PROTOCOL; Start 02/05/19 at 07:00 Potassium Chloride (Potassium Chloride Pwd/Soln) 40 meq PER PROTOCOL PRN PO POTASSIUM REPLACEMENT PROTOCOL; Start 02/05/19 at 07:00 Vancomycin HCl 100 ml @ 100 mls/hr Q12H IVPB ; Start 02/05/19 at 14:00 Imaging 1. Recurrent bouts of tachyarrhythmia consistent with supraventricular tachycardia, question if truly a sinus tachycardia versus likely paroxysmal atrial flutter or atrioventricular amilcar reentrant tachycardia, atrial tachycardia.- now improved on amiodarone -sinus now. 2. Hypertension, uncontrolled currently consistent with hypertensive emergency, unclear etiology in question, rule out cerebrovascular accident in the setting of altered mental state and acute increasing blood pressures.-labile but improved on clonidine TTS - improved with RX. 3. Altered mental state/encephalopathy-overall improved - still confused. 4. urinary tract infection, multidrug resistant. 5. Quadriplegia- skin care in place. 6. Psychiatric disorder. 7. Hypernatremia-slowly improving 8. Leukocytosis, new. 9. Anemia, mild. 10. Abnormal electrocardiogram with inferior and anteroseptal Q's, poor R-wave progression across the anterior precordial leads. -neg trop x 3 -no intervention planned. MECCA JAUREGUI MD Feb 05, 2019 08:51
[2019-02-05] MEDS: BALSAM PERU/CASTOR OIL 60 GM TUBE TOP SCH ×2 (09:00→10:01)
[2019-02-05] MEDS: CEFEPIME 1GM/50 ML (PMX) 50 ML IVPB SCH ×2 (09:46→20:20)
[2019-02-05] MEDS: AMITRIPTYLINE 10 MG TAB PO SCH ×2 (09:47→20:20)
[2019-02-05] MEDS: OLANZAPINE (ODT) 5 MG TAB ODT SCH (09:47)
[2019-02-05] MEDS: SACCHAROMYCES BOULARDII 250 MG CAP PO SCH ×2 (09:47→20:20)
[2019-02-05] MEDS: BISACODYL (EC) 5 MG TAB PO SCH ×2 (09:47→20:21)
[2019-02-05] MEDS: CHOLECALCIFEROL 2,000 UNIT CAP PO SCH (09:47)
[2019-02-05] MEDS: ENOXAPARIN 40 MG/0.4 ML SYG SC SCH (09:55)
[2019-02-05] MEDS: PHENAZOPYRIDINE 200 MG TAB PO SCH ×3 (09:58→20:20)
[2019-02-05] MEDS: DIAZEPAM 5 MG TAB PO SCH ×4 (09:58→20:20)
[2019-02-05] MEDS: TRULANCE 3 MG PO SCH (10:00)
[2019-02-05] MEDS: AMIODARONE 200 MG TAB PO SCH ×2 (10:05→20:21)
[2019-02-05] MEDS: DEXTROSE 5% 1,000 ML IV SCH (11:00)
[2019-02-05] MEDS ORDERED: VANCOMYCIN 750 MG (PMX) 250 ML IVPB SCH (11:00)
[2019-02-05] MEDS ORDERED: FOSFOMYCIN 3 GM PACKET PO ONE (12:30)
[2019-02-05] MEDS: HYDROmorphONE 0.5 MG/0.5 ML SYG IV PRN (12:40)
[2019-02-05] MEDS ORDERED: POTASSIUM CHLORIDE (SR) 20 MEQ TAB PO STA (12:41)
--- NOTE | 2019-02-05 12:54 | PN ---
Date/Time of Note Date/Time of Note DATE: 02/05/19 TIME: 12:51 Assessment/Plan VTE Prophylaxis Risk score (from Ns)>0 risk: 10 SCD applied (from [facility] [place]): Yes Pharmacological prophylaxis: NA/contraindicated Pharm contraindication: low risk/ambulating Lines/Catheters IV Catheter Type (from [facility]): Peripheral IV Assessment/Plan Assessment/Plan ospital Course #. Sepsis. WBC is rising. Recurrent urinary tract infection. The patient has history of recurrent urinary tract infections in the past. Drain through the ileostomy. The patient had multidrug-resistant urinary tract infection in the past. ucx+GNR, NOW with proteus, now with enterococcus # Uncontrolled HTN ? autonomic dysreflexia # Afib with RVR # Hypernatremia now with hypokalemia and acidosis? sepsos # Pain control with bladder spasm. # Autonomic dysreflexia. #. Bedbound state. wih incomplete quadriplegia #. History of incomplete quadriplegia. # Labile hypertension. #. Depression. # Anxiety. # Gastroesophageal reflux disease. #. diarrhea #. Anemia # Acute psychiatric decompensation wth hallucinations Assessment/Plan - iv fluids with NS - Replete K and recheck - replete mg rider - Recheck labs today - on amiod gtt> no w po - Aspiration precaution s> per speech full liquid - montior diarrhoea - on clonidine patch -Central rd eper Dr Simms -Zyprexa daily and elavil -CT scan head neg - cw vancomycin/ cefepime, sp amikacin. sp fosfomycin - d5w for hypernatremia - stool C. difficile neg - Dilaudid 4 mg po q 6 prn, Zanaflex , Valium. - pt was seen by Dr Cavanaugh, pain control> will fu his recs - cw Pyridium. - GI proph. Protonix -DVT proph. Lovenox Result Diagram: 02/05/1944702/05/19447 Results 24hrs Laboratory Tests Test 02/05/19 04:48 White Blood Count 7.1 # Red Blood Count 3.31 L Hemoglobin 9.9 L Hematocrit 30.8 L Mean Corpuscular Volume 93.1 Mean Corpuscular Hemoglobin 29.9 Mean Corpuscular Hemoglobin Concent 32.1 Red Cell Distribution Width 16.5 H Platelet Count 233 Mean Platelet Volume 11.6 H Immature Granulocytes % 0.300 Neutrophils % 68.0 Lymphocytes % 21.2 Monocytes % 9.3 Eosinophils % 0.4 Basophils % 0.8 Nucleated Red Blood Cells % 0.0 Immature Granulocytes # 0.020 Neutrophils # 4.9 Lymphocytes # 1.5 Monocytes # 0.7 Eosinophils # 0.0 Basophils # 0.1 Nucleated Red Blood Cells # 0.0 Sodium Level 152 H Potassium Level 2.7 *L Chloride Level 125 H Carbon Dioxide Level 18 L Anion Gap 9 # Blood Urea Nitrogen 24 H Creatinine 0.57 L Est Glomerular Filtrat Rate mL/min > 60 Glucose Level 100 Calcium Level 9.4 Phosphorus Level 3.0 Magnesium Level 1.6 L Vancomycin Level Trough 23.6 *H Subjective 24 Hr Interval Summary Free Text/Dictation Pt feels better today K 2.7 Na 152 Bicarb 18 Exam/Review of Systems Exam Vitals Vital Signs Date Temp Pulse Resp B/P (MAP) Pulse Ox O2 O2 Flow FiO2 Time Delivery Rate 02/05/19 83 12:00 02/05/19 16 125/84 100 Room Air 11:00 (98) 02/05/19 97.8 08:00 Intake and Output 02/04/19 02/04/19 02/05/19 1515:00 23:00 07:00 IntakeIntake Total 396.4 ml 560 ml 280 ml OutputOutput Total 100 ml 305 ml 1025 ml BalanceBalance 296.4 ml 255 ml -745 ml Exam pale Constitutional: alert Neck: supple, other (surgical wounds) Respiratory: diminished breath sounds Cardiovascular: regular rate and rhythm Gastrointestinal: soft, surgical scars, other (colonotomy, ileostome Genitourinary - Male: other (illeal pouch) Musculoskeletal: muscle weakness, bed bound, Results Results 24hrs Laboratory Tests Test 02/05/19 04:48 White Blood Count 7.1 # Red Blood Count 3.31 L Hemoglobin 9.9 L Hematocrit 30.8 L Mean Corpuscular Volume 93.1 Mean Corpuscular Hemoglobin 29.9 Mean Corpuscular Hemoglobin Concent 32.1 Red Cell Distribution Width 16.5 H Platelet Count 233 Mean Platelet Volume 11.6 H Immature Granulocytes % 0.300 Neutrophils % 68.0 Lymphocytes % 21.2 Monocytes % 9.3 Eosinophils % 0.4 Basophils % 0.8 Nucleated Red Blood Cells % 0.0 Immature Granulocytes # 0.020 Neutrophils # 4.9 Lymphocytes # 1.5 Monocytes # 0.7 Eosinophils # 0.0 Basophils # 0.1 Nucleated Red Blood Cells # 0.0 Sodium Level 152 H Potassium Level 2.7 *L Chloride Level 125 H Carbon Dioxide Level 18 L Anion Gap 9 # Blood Urea Nitrogen 24 H Creatinine 0.57 L Est Glomerular Filtrat Rate mL/min > 60 Glucose Level 100 Calcium Level 9.4 Phosphorus Level 3.0 Magnesium Level 1.6 L Vancomycin Level Trough 23.6 *H Medications Medication Current Medications Amitriptyline HCl (Elavil) 10 mg QAM PO Last administered on 02/05/19 09:47; Admin Dose 10 MG; Start 01/29/19 at 09:00 Amitriptyline HCl (Elavil) 30 mg QHS PO Last administered on 02/04/19 20:58; Admin Dose 30 MG; Start 01/29/19 at 21:00 Diazepam (Valium) 5 mg QID PO Last administered on 02/05/19 09:58; Admin Dose 5 MG; Start 01/28/19 at 23:00 Ondansetron HCl (Zofran Tab) 4 mg Q6 PRN PO NAUSEA AND/OR VOMITING Last administered on 02/01/19 09:00; Admin Dose 4 MG; Start 01/28/19 at 23:00 Pantoprazole (Protonix Tab) 40 mg AC BREAKFAST PO Last administered on 02/05/19 07:23; Admin Dose 40 MG; Start 01/29/19 at 07:00 Promethazine HCl (Phenergan) 25 mg QHS PO Last administered on 02/04/19 20:58; Admin Dose 25 MG; Start 01/29/19 at 21:00 Tizanidine HCl (Zanaflex) 4 mg Q8H PRN PO SPASTICITY Last administered on 02/05/19 02:03; Admin Dose 4 MG; Start 01/28/19 at 23:00 Acetaminophen (Tylenol Tab) 650 mg Q6H PRN PO MILD PAIN(1-3)OR ELEVATED TEMP Last administered on 01/30/19 01:56; Admin Dose 650 MG; Start 01/28/19 at 23:00 Cefepime HCl 50 ml @ 100 mls/hr Q12 IVPB Last administered on 02/05/19 09:46; Admin Dose 100 MLS/HR; Start 01/29/19 at 09:00 Bisacodyl (Dulcolax) 10 mg BID PO Last administered on 02/05/19 09:47; Admin Dose 10 MG; Start 01/29/19 at 09:00 Non-Formulary Medication 1 ea DAILY PO Last administered on 02/05/19 10:00; Admin Dose 1 EA; Start 01/29/19 at 09:00 Phenazopyridine HCl (Pyridium) 200 mg TID PO Last administered on 02/05/19 09:58; Admin Dose 200 MG; Start 01/30/19 at 13:00 Saccharomyces Boulardii (Florastor) 250 mg BID PO Last administered on 02/05/19 09:47; Admin Dose 250 MG; Start 01/31/19 at 16:00 Enoxaparin Sodium (Lovenox) 40 mg DAILY SC Last administered on 02/05/19 09:55; Admin Dose 40 MG; Start 01/31/19 at 15:30 Cholecalciferol (Vitamin D) 2,000 unit DAILY PO Last administered on 02/05/19 09:47; Admin Dose 2,000 UNIT; Start 02/01/19 at 10:00 Hydromorphone HCl (Dilaudid) 0.5 mg Q4H PRN IV SEVERE PAIN LEVEL 7-10 Last administered on 02/05/19 12:40; Admin Dose 0.5 MG; Start 02/01/19 at 19:30 Hydromorphone HCl (Dilaudid) 2 mg Q6H PRN PO PAIN LEVEL 4-6 Last administered on 02/05/19 07:24; Admin Dose 2 MG; Start 02/01/19 at 18:00 Lorazepam (Ativan) 1 mg Q4H PRN IV ANXIETY Last administered on 02/05/19 12:40; Admin Dose 1 MG; Start 02/02/19 at 14:30 Clonidine (Catapres) 0.1 mg Q6H PRN PO HIGH BP, SBP > 16; Start 02/02/19 at 14:30 Olanzapine (Zyprexa Zydis) 5 mg DAILY ODT Last administered on 02/05/19 09:47; Admin Dose 5 MG; Start 02/02/19 at 15:30 Hydralazine HCl (Apresoline) 20 mg Q6H PRN IV sbp > 160 Last administered on 02/03/19 11:36; Admin Dose 20 MG; Start 02/03/19 at 05:30 Diltiazem HCl (Cardizem Iv) 10 mg Q6 PRN IV tachycardia Last administered on 09:21; Admin Dose 10 MG; Start 02/03/19 at 08:00 Clonidine HCl (Catapres-Tts 1 Patch) 1 patch Q7D TRANSDERM Last administered on 02/03/19at 12:53; Admin Dose 1 PATCH; Start 02/03/19 at 12:00 Metoprolol Tartrate (Lopressor) 5 mg Q4 PRN IV HR>110 Hold SBP<100; Start 02/03/19 at 12:30 Vancomycin HCl (Vanco Iv Per Pharmacy) VANCOMYCIN PER PHARMACY PER PROTOCOL XX ; Start 02/03/19 at 14:00 Dextrose 1,000 ml @ 40 mls/hr Q24H IV Last administered on 02/05/19 11:00; Admin Dose 40 MLS/HR; Start 02/04/19 at 10:30 Amiodarone HCl (Cordarone) 200 mg BID PO Last administered on 02/05/19 10:05; Admin Dose 200 MG; Start 02/04/19 at 21:00 Potassium Chloride (Potassium Chloride Pwd/Soln) 20 meq PER PROTOCOL PRN PO POTASSIUM REPLACEMENT PROTOCOL; Start 02/05/19 at 07:00 Potassium Chloride (Potassium Chloride Pwd/Soln) 30 meq PER PROTOCOL PRN PO POTASSIUM REPLACEMENT PROTOCOL; Start 02/05/19 at 07:00 Potassium Chloride (Potassium Chloride Pwd/Soln) 40 meq PER PROTOCOL PRN PO POTASSIUM REPLACEMENT PROTOCOL; Start 02/05/19 at 07:00 Vancomycin HCl 100 ml @ 100 mls/hr Q12H IVPB ; Start 02/05/19 at 14:00 LILLY SIDDIQI MD Feb 05, 2019 12:54
[2019-02-05] MEDS ORDERED: SOD CHLORIDE 0.9% 500 ML IV ONE (13:00)
--- NOTE | 2019-02-05 13:23 | CONS ---
Assessment/Plan Assessment/Plan Hospital Course (Demo Recall) Patient is doing better he passed swallow evaluation currently sleeping in no distress and no fevers overnight. Repeat urine culture growing enterococcus species Antimicrobials: Vancomycin and Cefepime Physical examination: Chronically ill appearing wasted middle-aged man who is in no distress. Head atraumatic normocephalic neck is supple chest rise symmetrical breath sounds clear. Heart: S1-S2. Abdomen soft bowel sounds present. Extremities wasted contracted Assessment: 1. Sepsis 2. Probable aspiration event 3. Recurrent UTI 4. Incomplete quadriplegia 5. Dysphagia. 6. Chronic pain syndrome Plan: Stable, continue present care and antibiotics, await for repeat urine cx, give a dose of Fosfomycin, continue aspiration precautions==> pt passed swallow eval Consultation Date/Type/Reason Admit Date/Time Jan 29, 2019 at 16:47 Initial Consult Date Type of Consult id Requesting Provider: BRYANT LEWIS MD Date/Time of Note DATE: 02/05/19 TIME: 13:20 Exam/Review of Systems Exam Vitals Vital Signs Date Temp Pulse Resp B/P (MAP) Pulse Ox O2 O2 Flow FiO2 Time Delivery Rate 02/05/19 83 12:00 02/05/19 16 125/84 100 Room Air 11:00 (98) 02/05/19 97.8 08:00 Intake and Output 02/04/19 02/04/19 02/05/19 1515:00 23:00 07:00 IntakeIntake Total 396.4 ml 560 ml 280 ml OutputOutput Total 100 ml 305 ml 1025 ml BalanceBalance 296.4 ml 255 ml -745 ml Results Result Diagram: 02/05/19 0448 02/05/19 0448 Results 24hrs Laboratory Tests Test 02/05/19 04:48 White Blood Count 7.1 # Red Blood Count 3.31 L Hemoglobin 9.9 L Hematocrit 30.8 L Mean Corpuscular Volume 93.1 Mean Corpuscular Hemoglobin 29.9 Mean Corpuscular Hemoglobin Concent 32.1 Red Cell Distribution Width 16.5 H Platelet Count 233 Mean Platelet Volume 11.6 H Immature Granulocytes % 0.300 Neutrophils % 68.0 Lymphocytes % 21.2 Monocytes % 9.3 Eosinophils % 0.4 Basophils % 0.8 Nucleated Red Blood Cells % 0.0 Immature Granulocytes # 0.020 Neutrophils # 4.9 Lymphocytes # 1.5 Monocytes # 0.7 Eosinophils # 0.0 Basophils # 0.1 Nucleated Red Blood Cells # 0.0 Sodium Level 152 H Potassium Level 2.7 *L Chloride Level 125 H Carbon Dioxide Level 18 L Anion Gap 9 # Blood Urea Nitrogen 24 H Creatinine 0.57 L Est Glomerular Filtrat Rate mL/min > 60 Glucose Level 100 Calcium Level 9.4 Phosphorus Level 3.0 Magnesium Level 1.6 L Vancomycin Level Trough 23.6 *H Medications Medication Current Medications Amitriptyline HCl (Elavil) 10 mg QAM PO Last administered on 02/05/19 09:47; Admin Dose 10 MG; Start 01/29/19 at 09:00 Amitriptyline HCl (Elavil) 30 mg QHS PO Last administered on 02/04/19 20:58; Admin Dose 30 MG; Start 01/29/19 at 21:00 Diazepam (Valium) 5 mg QID PO Last administered on 02/05/19 13:19; Admin Dose 5 MG; Start 01/28/19 at 23:00 Ondansetron HCl (Zofran Tab) 4 mg Q6 PRN PO NAUSEA AND/OR VOMITING Last administered on 02/01/19 09:00; Admin Dose 4 MG; Start 01/28/19 at 23:00 Pantoprazole (Protonix Tab) 40 mg AC BREAKFAST PO Last administered on 02/05/19 07:23; Admin Dose 40 MG; Start 01/29/19 at 07:00 Promethazine HCl (Phenergan) 25 mg QHS PO Last administered on 02/04/19 20:58; Admin Dose 25 MG; Start 01/29/19 at 21:00 Tizanidine HCl (Zanaflex) 4 mg Q8H PRN PO SPASTICITY Last administered on 02/05/19 02:03; Admin Dose 4 MG; Start 01/28/19 at 23:00 Acetaminophen (Tylenol Tab) 650 mg Q6H PRN PO MILD PAIN(1-3)OR ELEVATED TEMP Last administered on 01/30/19 01:56; Admin Dose 650 MG; Start 01/28/19 at 23:00 Cefepime HCl 50 ml @ 100 mls/hr Q12 IVPB Last administered on 02/05/19 09:46; Admin Dose 100 MLS/HR; Start 01/29/19 at 09:00 Bisacodyl (Dulcolax) 10 mg BID PO Last administered on 02/05/19 09:47; Admin Dose 10 MG; Start 01/29/19 at 09:00 Non-Formulary Medication 1 ea DAILY PO Last administered on 02/05/19 10:00; Admin Dose 1 EA; Start 01/29/19 at 09:00 Phenazopyridine HCl (Pyridium) 200 mg TID PO Last administered on 02/05/19 13:18; Admin Dose 200 MG; Start 01/30/19 at 13:00 Saccharomyces Boulardii (Florastor) 250 mg BID PO Last administered on 02/05/19 09:47; Admin Dose 250 MG; Start 01/31/19 at 16:00 Enoxaparin Sodium (Lovenox) 40 mg DAILY SC Last administered on 02/05/19 09:55; Admin Dose 40 MG; Start 01/31/19 at 15:30 Cholecalciferol (Vitamin D) 2,000 unit DAILY PO Last administered on 02/05/19 09:47; Admin Dose 2,000 UNIT; Start 02/01/19 at 10:00 Hydromorphone HCl (Dilaudid) 0.5 mg Q4H PRN IV SEVERE PAIN LEVEL 7-10 Last administered on 02/05/19 12:40; Admin Dose 0.5 MG; Start 02/01/19 at 19:30 Hydromorphone HCl (Dilaudid) 2 mg Q6H PRN PO PAIN LEVEL 4-6 Last administered on 02/05/19 07:24; Admin Dose 2 MG; Start 02/01/19 at 18:00 Lorazepam (Ativan) 1 mg Q4H PRN IV ANXIETY Last administered on 02/05/19 12:40; Admin Dose 1 MG; Start 02/02/19 at 14:30 Clonidine (Catapres) 0.1 mg Q6H PRN PO HIGH BP, SBP > 16; Start 02/02/19 at 14:30 Olanzapine (Zyprexa Zydis) 5 mg DAILY ODT Last administered on 02/05/19 09:47; Admin Dose 5 MG; Start 02/02/19 at 15:30 Hydralazine HCl (Apresoline) 20 mg Q6H PRN IV sbp > 160 Last administered on 02/03/19 11:36; Admin Dose 20 MG; Start 02/03/19 at 05:30 Diltiazem HCl (Cardizem Iv) 10 mg Q6 PRN IV tachycardia Last administered on 02/03/19 09:21; Admin Dose 10 MG; Start 02/03/19 at 08:00 Clonidine HCl (Catapres-Tts 1 Patch) 1 patch Q7D TRANSDERM Last administered on 02/03/19at 12:53; Admin Dose 1 PATCH; Start 02/03/19 at 12:00 Metoprolol Tartrate (Lopressor) 5 mg Q4 PRN IV HR>110 Hold SBP<100; Start 02/03/19 at 12:30 Vancomycin HCl (Vanco Iv Per Pharmacy) VANCOMYCIN PER PHARMACY PER PROTOCOL XX ; Start 02/03/19 at 14:00 Dextrose 1,000 ml @ 40 mls/hr Q24H IV Last administered on 02/05/19at 11:00; Admin Dose 40 MLS/HR; Start 02/04/19 at 10:30 Amiodarone HCl (Cordarone) 200 mg BID PO Last administered on 02/05/19at 10:05; Admin Dose 200 MG; Start 02/04/19 at 21:00 Potassium Chloride (Potassium Chloride Pwd/Soln) 20 meq PER PROTOCOL PRN PO POTASSIUM REPLACEMENT PROTOCOL; Start 02/05/19 at 07:00 Potassium Chloride (Potassium Chloride Pwd/Soln) 30 meq PER PROTOCOL PRN PO POTASSIUM REPLACEMENT PROTOCOL; Start 02/05/19 at 07:00 Potassium Chloride (Potassium Chloride Pwd/Soln) 40 meq PER PROTOCOL PRN PO POTASSIUM REPLACEMENT PROTOCOL; Start 02/05/19 at 07:00 Vancomycin HCl 100 ml @ 100 mls/hr Q12H IVPB ; Start 02/05/19 at 14:00 Sodium Chloride 500 ml @ 500 mls/hr Q1H ONCE IV ; Start 02/05/19 at 13:00; Stop 02/05/19 at 13:59 NOÉ JUNIOR NP Feb 05, 2019 13:23
[2019-02-05] MEDS: MULTIVITAMINS 30 ML CUP PO SCH (13:48)
[2019-02-05] MEDS: VANCOMYCIN 500 MG (PMX) 100 ML IVPB SCH (14:50)
--- NOTE | 2019-02-05 16:33 | OPR ---
DATE OF OPERATION: PREOPERATIVE DIAGNOSIS: Sepsis. POSTOPERATIVE DIAGNOSIS: Sepsis. PROCEDURE: Right femoral central line placement. SURGEON: Jah Rogers MD ANESTHESIA: Local. CONSENT: Risks, benefits, complications, alternative therapies were explained to the patient and the family and consent was obtained. OPERATIVE TECHNIQUE: The patient was placed in supine position, prepped and draped in usual sterile fashion. Time-out was called. Access was gained in the right femoral vein. Guidewire was advanced through without any difficulty. Subcutaneous tissues were dilated. Central line was advanced over g uidewire and secured to skin using silk sutures. The patient tolerated procedure well. Dictated By: JAH ROGERS MD FM/NTS Conf#: [id number] DID#: [id number] CC: BRYANT LEWIS MD; JUMA IRWIN MD;*End*
--- NOTE | 2019-02-05 16:54 | RADRPT ---
Vent Rate: 74 bpm RR Interval: 808 msec TX Interval: 146 msec QRS Duration: 90 msec QT Interval: 398 msec QTC Interval: 443 msec P-R-T [place]: -19 - 97 - 85 degrees Sinus rhythm...normal P axis, V-rate 50- 99 Multiple premature complexes, vent & supraven...V and SV complexes w/ short R-R Abnrm T, consider ischemia, anterolateral lds...T <-0.20mV, I aVL V2-V6 ST elev, probable normal early repol pattern...ST elevation, age<55 Electronically Signed By: Kelton Pathak
[2019-02-05] MEDS: PROMETHAZINE 25 MG TAB PO SCH (20:21)
[2019-02-05] MEDS ORDERED: ZYVOX 600 MG TAB PO SCH (21:00)
[2019-02-06] VITALS (11 sets, daily range): BP systolic 92–131; BP diastolic 63–78; PULSE 80–99; RESP 18–20
[2019-02-06] MEDS: VANCOMYCIN 500 MG (PMX) 100 ML IVPB SCH (02:20)
[2019-02-06] MEDS: PANTOPRAZOLE (EC) 40 MG TAB PO SCH (06:11)
[2019-02-06] MEDS: MULTIVITAMINS 30 ML CUP PO SCH (08:40)
[2019-02-06] MEDS: CEFEPIME 1GM/50 ML (PMX) 50 ML IVPB SCH ×2 (08:40→21:23)
[2019-02-06] MEDS: CHOLECALCIFEROL 2,000 UNIT CAP PO SCH (08:41)
[2019-02-06] MEDS: AMITRIPTYLINE 10 MG TAB PO SCH ×2 (08:41→21:25)
[2019-02-06] MEDS: OLANZAPINE (ODT) 5 MG TAB ODT SCH (08:41)
[2019-02-06] MEDS: DIAZEPAM 5 MG TAB PO SCH ×4 (08:41→21:25)
[2019-02-06] MEDS: SACCHAROMYCES BOULARDII 250 MG CAP PO SCH ×2 (08:41→21:25)
[2019-02-06] MEDS: PHENAZOPYRIDINE 200 MG TAB PO SCH ×3 (08:41→21:24)
[2019-02-06] MEDS: AMIODARONE 200 MG TAB PO SCH ×2 (08:42→21:26)
[2019-02-06] MEDS: BISACODYL (EC) 5 MG TAB PO SCH ×2 (08:42→21:00)
[2019-02-06] MEDS: TRULANCE 3 MG PO SCH (08:42)
[2019-02-06] MEDS: ENOXAPARIN 40 MG/0.4 ML SYG SC SCH (08:53)
[2019-02-06] MEDS: BALSAM PERU/CASTOR OIL 60 GM TUBE TOP SCH (08:54)
[2019-02-06] MEDS ORDERED: MULTIVITAMINS/VIT C 0.5ML (PO SYG) PO SCH (09:00)
[2019-02-06] MEDS: DEXTROSE 5% 1,000 ML IV SCH (10:30)
[2019-02-06] MEDS: ZYVOX 600 MG TAB PO SCH ×2 (11:56→21:26)
--- NOTE | 2019-02-06 12:54 | PN ---
Date/Time of Note Date/Time of Note DATE: 02/06/19 TIME: 12:54 Assessment/Plan VTE Prophylaxis Risk score (from Ns)>0 risk: 7 SCD applied (from Ns): Yes Pharmacological prophylaxis: NA/contraindicated Pharm contraindication: low risk/ambulating Lines/Catheters IV Catheter Type (from Nrsg): Central Line Central line still needed: Yes Assessment/Plan Assessment/Plan spital Course #. Sepsis. WBC is rising. Recurrent urinary tract infection. The patient has history of recurrent urinary tract infections in the past. Drain through the ileostomy. The patient had multidrug-resistant urinary tract infection in the past. ucx+GNR, NOW with proteus, now with enterococcus # Uncontrolled HTN ? autonomic dysreflexia # Afib with RVR # Hypernatremia now with hypokalemia and acidosis? sepsos # Pain control with bladder spasm. # Autonomic dysreflexia. #. Bedbound state. wih incomplete quadriplegia #. History of incomplete quadriplegia. # Labile hypertension. #. Depression. # Anxiety. # Gastroesophageal reflux disease. #. diarrhea nwg c diff #. Anemia # Acute psychiatric decompensation wth hallucinations # Non gap acidosis Assessment/Plan - iv fluids also due to diarrhoea - will check ABG - on amiod gtt> no w po - Advance diet - montior diarrhoea> c diff neg - on clonidine patch -Zyprexa daily and elavil -CT scan head neg - cw vancomycin/ cefepime, sp amikacin. sp fosfomycin - stool C. difficile neg - Dilaudid 4 mg po q 6 prn, Zanaflex , Valium. - pt was seen by Dr Cavanaugh, pain control> will fu his recs - cw Pyridium./zyvox/cefepime - GI proph. Protonix -DVT proph. Lovenox Result Diagram: 02/05/19 0448 02/06/19 1108 Results 24hrs Laboratory Tests Test 02/05/19 16:03 02/06/19 11:08 Sodium Level 148 H 147 H Potassium Level 3.2 L 4.5 Chloride Level 124 H 120 H Carbon Dioxide Level 17 L 13 L Anion Gap 7 14 #H Blood Urea Nitrogen 20 14 Creatinine 0.50 L 0.47 L Est Glomerular Filtrat Rate mL/min > 60 > 60 Glucose Level 84 104 Calcium Level 8.5 9.6 Subjective 24 Hr Interval Summary Free Text/Dictation having loose stools feels a lot better NA 147 Exam/Review of Systems Exam Vitals Vital Signs Date Temp Pulse Resp B/P (MAP) Pulse Ox O2 O2 Flow FiO2 Time Delivery Rate 02/06/19 98.6 96 18 92/63 (73) 98 Room Air 11:30 Intake and Output 02/05/19 02/05/19 02/06/19 1515:00 23:00 07:00 IntakeIntake Total 1010 ml 190 ml 750 ml OutputOutput Total 970 ml 240 ml 1550 ml BalanceBalance 40 ml -50 ml -800 ml Exam pale Constitutional: alert Neck: supple, other (surgical wounds) Respiratory: diminished breath sounds Cardiovascular: regular rate and rhythm Gastrointestinal: soft, surgical scars, other (colonotomy, ileostome Genitourinary - Male: other (illeal pouch) Musculoskeletal: muscle weakness, bed bound, Results Results 24hrs Laboratory Tests Test 02/05/19 16:03 02/06/19 11:08 Sodium Level 148 H 147 H Potassium Level 3.2 L 4.5 Chloride Level 124 H 120 H Carbon Dioxide Level 17 L 13 L Anion Gap 7 14 #H Blood Urea Nitrogen 20 14 Creatinine 0.50 L 0.47 L Est Glomerular Filtrat Rate mL/min > 60 > 60 Glucose Level 84 104 Calcium Level 8.5 9.6 Medications Medication Current Medications Amitriptyline HCl (Elavil) 10 mg QAM PO Last administered on 02/06/19 08:41; Admin Dose 10 MG; Start 01/29/19 at 09:00 Amitriptyline HCl (Elavil) 30 mg QHS PO Last administered on 02/05/19 20:20; Admin Dose 30 MG; Start 01/29/19 at 21:00 Diazepam (Valium) 5 mg QID PO Last administered on 02/06/19 08:41; Admin Dose 5 MG; Start 01/28/19 at 23:00 Ondansetron HCl (Zofran Tab) 4 mg Q6 PRN PO NAUSEA AND/OR VOMITING Last administered on 02/01/19 09:00; Admin Dose 4 MG; Start 01/28/19 at 23:00 Pantoprazole (Protonix Tab) 40 mg AC BREAKFAST PO Last administered on 02/06/19 06:11; Admin Dose 40 MG; Start 01/29/19 at 07:00 Promethazine HCl (Phenergan) 25 mg QHS PO Last administered on 02/05/19 20:21; Admin Dose 25 MG; Start 01/29/19 at 21:00 Tizanidine HCl (Zanaflex) 4 mg Q8H PRN PO SPASTICITY Last administered on 02/05/19 02:03; Admin Dose 4 MG; Start 01/28/19 at 23:00 Acetaminophen (Tylenol Tab) 650 mg Q6H PRN PO MILD PAIN(1-3)OR ELEVATED TEMP Last administered on 01/30/19 01:56; Admin Dose 650 MG; Start 01/28/19 at 23:00 Cefepime HCl 50 ml @ 100 mls/hr Q12 IVPB Last administered on 02/06/19 08:40; Admin Dose 100 MLS/HR; Start 01/29/19 at 09:00 Bisacodyl (Dulcolax) 10 mg BID PO Last administered on 02/06/19 08:42; Admin Dose 10 MG; Start 01/29/19 at 09:00 Non-Formulary Medication 1 ea DAILY PO Last administered on 02/06/19 08:42; Admin Dose 1 EA; Start 01/29/19 at 09:00 Phenazopyridine HCl (Pyridium) 200 mg TID PO Last administered on 02/06/19 08:41; Admin Dose 200 MG; Start 01/30/19 at 13:00 Saccharomyces Boulardii (Florastor) 250 mg BID PO Last administered on 02/06/19 08:41; Admin Dose 250 MG; Start 01/31/19 at 16:00 Enoxaparin Sodium (Lovenox) 40 mg DAILY SC Last administered on 02/06/19 08:53; Admin Dose 40 MG; Start 01/31/19 at 15:30 Cholecalciferol (Vitamin D) 2,000 unit DAILY PO Last administered on 02/06/19 08:41; Admin Dose 2,000 UNIT; Start 02/01/19 at 10:00 Hydromorphone HCl (Dilaudid) 0.5 mg Q4H PRN IV SEVERE PAIN LEVEL 7-10 Last administered on 02/05/19 12:40; Admin Dose 0.5 MG; Start 02/01/19 at 19:30 Hydromorphone HCl (Dilaudid) 2 mg Q6H PRN PO PAIN LEVEL 4-6 Last administered on 02/05/19 19:06; Admin Dose 2 MG; Start 02/01/19 at 18:00 Lorazepam (Ativan) 1 mg Q4H PRN IV ANXIETY Last administered on 02/05/19 12:40; Admin Dose 1 MG; Start 02/02/19 at 14:30 Clonidine (Catapres) 0.1 mg Q6H PRN PO HIGH BP, SBP > 16; Start 02/02/19 at 14:30 Olanzapine (Zyprexa Zydis) 5 mg DAILY ODT Last administered on 02/06/19 08:41; Admin Dose 5 MG; Start 02/02/19 at 15:30 Hydralazine HCl (Apresoline) 20 mg Q6H PRN IV sbp > 160 Last administered on 02/03/19 11:36; Admin Dose 20 MG; Start 02/03/19 at 05:30 Diltiazem HCl (Cardizem Iv) 10 mg Q6 PRN IV tachycardia Last administered on 09:21; Admin Dose 10 MG; Start 02/03/19 at 08:00 Clonidine HCl (Catapres-Tts 1 Patch) 1 patch Q7D TRANSDERM Last administered on 02/03/19 12:53; Admin Dose 1 PATCH; Start 02/03/19 at 12:00 Metoprolol Tartrate (Lopressor) 5 mg Q4 PRN IV HR>110 Hold SBP<100; Start 02/03/19 at 12:30 Amiodarone HCl (Cordarone) 200 mg BID PO Last administered on 02/06/19 08:42; Admin Dose 200 MG; Start 02/04/19 at 21:00 Potassium Chloride (Potassium Chloride Pwd/Soln) 20 meq PER PROTOCOL PRN PO POTASSIUM REPLACEMENT PROTOCOL; Start 02/05/19 at 07:00 Potassium Chloride (Potassium Chloride Pwd/Soln) 30 meq PER PROTOCOL PRN PO POTASSIUM REPLACEMENT PROTOCOL; Start 02/05/19 at 07:00 Potassium Chloride (Potassium Chloride Pwd/Soln) 40 meq PER PROTOCOL PRN PO POTASSIUM REPLACEMENT PROTOCOL Last administered on 6/11/19at 16:59; Admin Dose 40 MEQ; Start 02/05/19 at 07:00 Multivitamins (Multivitamin) 30 ml DAILY PO Last administered on 02/06/19at 08:40; Admin Dose 30 ML; Start 02/05/19 at 13:38 Linezolid (Zyvox) 600 mg BID PO Last administered on 02/06/19at 11:56; Admin Dose 600 MG; Start 02/06/19 at 11:00 Sodium Chloride 1,000 ml @ 70 mls/hr [id number] IV ; Start 02/06/19 at 12:30 LILLY SIDDIQI MD Feb 06, 2019 12:54
[2019-02-06] MEDS: SOD CHLORIDE 0.45% 1,000 ML IV SCH (13:50)
--- NOTE | 2019-02-06 14:23 | CONS ---
Assessment/Plan Assessment/Plan Hospital Course (Demo Recall) Transferred out of ICU, started on diet, no fevers overnight Repeat urine culture growing VRE Antimicrobials: Vancomycin and Cefepime Physical examination: Chronically ill appearing wasted middle-aged man who is in no distress. Head atraumatic normocephalic neck is supple chest rise symmet rical breath sounds clear. Heart: S1-S2. Abdomen soft bowel sounds present. Extremities wasted contracted Assessment: 1. Sepsis 2. Probable aspiration event 3. Recurrent UTI 4. Incomplete quadriplegia 5. Dysphagia. 6. Chronic pain syndrome Plan: Doing better, change vancomycin to Zyvox, continue aspiration precautions Consultation Date/Type/Reason Admit Date/Time Jan 29, 2019 at 16:47 Initial Consult Date Type of Consult id Requesting Provider: BRYANT LEWIS MD Date/Time of Note DATE: 02/06/19 TIME: 14:22 Exam/Review of Systems Exam Vitals Vital Signs Date Temp Pulse Resp B/P (MAP) Pulse Ox O2 O2 Flow FiO2 Time Delivery Rate 02/06/19 99 12:00 02/06/19 98.6 18 92/63 (73) 98 Room Air 11:30 Intake and Output 02/05/19 02/05/19 02/06/19 1515:00 23:00 07:00 IntakeIntake Total 1010 ml 190 ml 750 ml OutputOutput Total 970 ml 240 ml 1550 ml BalanceBalance 40 ml -50 ml -800 ml Results Result Diagram: 02/05/19 0448 02/06/19 1108 Results 24hrs Laboratory Tests Test 02/05/19 16:03 02/06/19 11:08 Sodium Level 148 H 147 H Potassium Level 3.2 L 4.5 Chloride Level 124 H 120 H Carbon Dioxide Level 17 L 13 L Anion Gap 7 14 #H Blood Urea Nitrogen 20 14 Creatinine 0.50 L 0.47 L Est Glomerular Filtrat Rate mL/min > 60 > 60 Glucose Level 84 104 Calcium Level 8.5 9.6 Medications Medication Current Medications Amitriptyline HCl (Elavil) 10 mg QAM PO Last administered on 02/06/19at 08:41; Admin Dose 10 MG; Start 01/29/19 at 09:00 Amitriptyline HCl (Elavil) 30 mg QHS PO Last administered on 02/05/19at 20:20; Admin Dose 30 MG; Start 01/29/19 at 21:00 Diazepam (Valium) 5 mg QID PO Last administered on 02/06/19 13:50; Admin Dose 5 MG; Start 01/28/19 at 23:00 Ondansetron HCl (Zofran Tab) 4 mg Q6 PRN PO NAUSEA AND/OR VOMITING Last administered on 02/01/19 09:00; Admin Dose 4 MG; Start 01/28/19 at 23:00 Pantoprazole (Protonix Tab) 40 mg AC BREAKFAST PO Last administered on 02/06/19 06:11; Admin Dose 40 MG; Start 01/29/19 at 07:00 Promethazine HCl (Phenergan) 25 mg QHS PO Last administered on 02/05/19 20:21; Admin Dose 25 MG; Start 01/29/19 at 21:00 Tizanidine HCl (Zanaflex) 4 mg Q8H PRN PO SPASTICITY Last administered on 02/05/19 02:03; Admin Dose 4 MG; Start 01/28/19 at 23:00 Acetaminophen (Tylenol Tab) 650 mg Q6H PRN PO MILD PAIN(1-3)OR ELEVATED TEMP Last administered on 01/30/19 01:56; Admin Dose 650 MG; Start 01/28/19 at 23:00 Cefepime HCl 50 ml @ 100 mls/hr Q12 IVPB Last administered on 02/06/19 08:40; Admin Dose 100 MLS/HR; Start 01/29/19 at 09:00 Bisacodyl (Dulcolax) 10 mg BID PO Last administered on 02/06/19 08:42; Admin Dose 10 MG; Start 01/29/19 at 09:00 Non-Formulary Medication 1 ea DAILY PO Last administered on 02/06/19 08:42; Admin Dose 1 EA; Start 01/29/19 at 09:00 Phenazopyridine HCl (Pyridium) 200 mg TID PO Last administered on 02/06/19 13:50; Admin Dose 200 MG; Start 01/30/19 at 13:00 Saccharomyces Boulardii (Florastor) 250 mg BID PO Last administered on 02/06/19 08:41; Admin Dose 250 MG; Start 01/31/19 at 16:00 Enoxaparin Sodium (Lovenox) 40 mg DAILY SC Last administered on 02/06/19 08:53; Admin Dose 40 MG; Start 01/31/19 at 15:30 Cholecalciferol (Vitamin D) 2,000 unit DAILY PO Last administered on 02/06/19 08:41; Admin Dose 2,000 UNIT; Start 02/01/19 at 10:00 Hydromorphone HCl (Dilaudid) 0.5 mg Q4H PRN IV SEVERE PAIN LEVEL 7-10 Last administered on 02/05/19 12:40; Admin Dose 0.5 MG; Start 02/01/19 at 19:30 Hydromorphone HCl (Dilaudid) 2 mg Q6H PRN PO PAIN LEVEL 4-6 Last administered on 02/05/19 19:06; Admin Dose 2 MG; Start 02/01/19 at 18:00 Lorazepam (Ativan) 1 mg Q4H PRN IV ANXIETY Last administered on 02/05/19 12:40; Admin Dose 1 MG; Start 02/02/19 at 14:30 Clonidine (Catapres) 0.1 mg Q6H PRN PO HIGH BP, SBP > 16; Start 02/02/19 at 14:30 Olanzapine (Zyprexa Zydis) 5 mg DAILY ODT Last administered on 02/06/19 08:41; Admin Dose 5 MG; Start 02/02/19 at 15:30 Hydralazine HCl (Apresoline) 20 mg Q6H PRN IV sbp > 160 Last administered on 02/03/19 11:36; Admin Dose 20 MG; Start 02/03/19 at 05:30 Diltiazem HCl (Cardizem Iv) 10 mg Q6 PRN IV tachycardia Last administered on 02/03/19 09:21; Admin Dose 10 MG; Start 02/03/19 at 08:00 Clonidine HCl (Catapres-Tts 1 Patch) 1 patch Q7D TRANSDERM Last administered on 02/03/19 12:53; Admin Dose 1 PATCH; Start 02/03/19 at 12:00 Metoprolol Tartrate (Lopressor) 5 mg Q4 PRN IV HR>110 Hold SBP<100; Start 02/03/19 at 12:30 Amiodarone HCl (Cordarone) 200 mg BID PO Last administered on 02/06/19at 08:42; Admin Dose 200 MG; Start 02/04/19 at 21:00 Potassium Chloride (Potassium Chloride Pwd/Soln) 20 meq PER PROTOCOL PRN PO POTASSIUM REPLACEMENT PROTOCOL; Start 02/05/19 at 07:00 Potassium Chloride (Potassium Chloride Pwd/Soln) 30 meq PER PROTOCOL PRN PO POTASSIUM REPLACEMENT PROTOCOL; Start 02/05/19 at 07:00 Potassium Chloride (Potassium Chloride Pwd/Soln) 40 meq PER PROTOCOL PRN PO POTASSIUM REPLACEMENT PROTOCOL Last administered on 02/05/19at 16:59; Admin Dose 40 MEQ; Start 02/05/19 at 07:00 Multivitamins (Multivitamin) 30 ml DAILY PO Last administered on 02/06/19at 08:40; Admin Dose 30 ML; Start 02/05/19 at 13:38 Linezolid (Zyvox) 600 mg BID PO Last administered on 02/06/19at 11:56; Admin Dose 600 MG; Start 02/06/19 at 11:00 Sodium Chloride 1,000 ml @ 70 mls/hr [id number] IV Last administered on 02/06/19at 13:50; Admin Dose 70 MLS/HR; Start 02/06/19 at 12:30 NOÉ JUNIOR NP Feb 06, 2019 14:23
--- NOTE | 2019-02-06 14:29 | CONS ---
Assessment/Plan Assessment/Plan Hospital Course (Demo Recall) IMPRESSION: 1. Recurrent bouts of tachyarrhythmia consistent with supraventricular tachycardia, question if truly a sinus tachycardia versus likely paroxysmal atrial flutter or atrioventricular amilcar reentrant tachycardia, atrial tachycardia.- now improved on amiodarone 2. Hypertension, uncontrolled currently consistent with hypertensive emergency, unclear etiology in question, rule out cerebrovascular accident in the setting of altered mental state and acute increasing blood pressures.-labile but improved on clonidine TTS 3. Altered mental state/encephalopathy-overall improved 4. urinary tract infection, multidrug resistant. 5. Quadriplegia. 6. Psychiatric disorder. 7. Hypernatremia-slowly improving 8. Leukocytosis, new. 9. Anemia, mild. 10. Abnormal electrocardiogram with inferior and anteroseptal Q's, poor R-wave progression across the anterior precordial leads. -neg trop x 3 Recc: -tele -Continue amiodarone with transition to PO -Continue abx's and f/u cx data -free water for elevated NA -Continue abx's and f/u cx data Consultation Date/Type/Reason Admit Date/Time Jan 29, 2019 at 16:47 Initial Consult Date 02/03/19 Type of Consult Cardiology Reason for Consultation tachycardia Requesting Provider: BRYANT LEWIS MD Date/Time of Note DATE: 02/06/19 TIME: 14:24 Exam/Review of Systems Vital Signs Vitals Vital Signs Date Temp Pulse Resp B/P (MAP) Pulse Ox O2 O2 Flow FiO2 Time Delivery Rate 02/06/19 99 12:00 02/06/19 98.6 18 92/63 (73) 98 Room Air 11:30 Intake and Output 02/05/19 02/05/19 02/06/19 1414:59 22:59 06:59 IntakeIntake Total 760 ml 440 ml 750 ml OutputOutput Total 500 ml 740 ml 1550 ml BalanceBalance 260 ml -300 ml -800 ml Exam Exam Review of Systems: CONSTITUTIONAL: No fevers, chills. PULMONARY: No sob CARDIOVASCULAR: No chest pain/palpitations GASTROINTESTINAL: No nausea/vomiting. GENITOURINARY: No hematuria/dysuria. MUSCULOSKELETAL: No myagias/arthalgias. PSYCHIATRIC: The patient denies depression. NEUROLOGIC: No weakness Constitutional: alert Psych: no complaints Head: normocephalic ENMT: mucosa pink and moist Neck: supple, jvd (9 cm water) Respiratory: clear to auscultation Cardiovascular: regular rate and rhythm Gastrointestinal: soft, non-tender Musculoskeletal: muscle weakness (generalized) Extremities: edema (none) Neurological: other (No focal deficits) Labs Result Diagram: 02/05/19 0448 02/06/19 1108 Results 24hrs Laboratory Tests Test 02/05/19 16:03 02/06/19 11:08 Sodium Level 148 H 147 H Potassium Level 3.2 L 4.5 Chloride Level 124 H 120 H Carbon Dioxide Level 17 L 13 L Anion Gap 7 14 #H Blood Urea Nitrogen 20 14 Creatinine 0.50 L 0.47 L Est Glomerular Filtrat Rate mL/min > 60 > 60 Glucose Level 84 104 Calcium Level 8.5 9.6 Medications Medications Current Medications Amitriptyline HCl (Elavil) 10 mg QAM PO Last administered on 02/06/19 08:41; Admin Dose 10 MG; Start 01/29/19 at 09:00 Amitriptyline HCl (Elavil) 30 mg QHS PO Last administered on 02/05/19 20:20; Admin Dose 30 MG; Start 01/29/19 at 21:00 Diazepam (Valium) 5 mg QID PO Last administered on 02/06/19 13:50; Admin Dose 5 MG; Start 01/28/19 at 23:00 Ondansetron HCl (Zofran Tab) 4 mg Q6 PRN PO NAUSEA AND/OR VOMITING Last administered on 02/01/19 09:00; Admin Dose 4 MG; Start 01/28/19 at 23:00 Pantoprazole (Protonix Tab) 40 mg AC BREAKFAST PO Last administered on 02/06/19 06:11; Admin Dose 40 MG; Start 01/29/19 at 07:00 Promethazine HCl (Phenergan) 25 mg QHS PO Last administered on 02/05/19 20:21; Admin Dose 25 MG; Start 01/29/19 at 21:00 Tizanidine HCl (Zanaflex) 4 mg Q8H PRN PO SPASTICITY Last administered on 02/05/19 02:03; Admin Dose 4 MG; Start 01/28/19 at 23:00 Acetaminophen (Tylenol Tab) 650 mg Q6H PRN PO MILD PAIN(1-3)OR ELEVATED TEMP Last administered on 01/30/19 01:56; Admin Dose 650 MG; Start 01/28/19 at 23:00 Cefepime HCl 50 ml @ 100 mls/hr Q12 IVPB Last administered on 02/06/19 08:40; Admin Dose 100 MLS/HR; Start 01/29/19 at 09:00 Bisacodyl (Dulcolax) 10 mg BID PO Last administered on 02/06/19 08:42; Admin Dose 10 MG; Start 01/29/19 at 09:00 Non-Formulary Medication 1 ea DAILY PO Last administered on 02/06/19 08:42; Admin Dose 1 EA; Start 01/29/19 at 09:00 Phenazopyridine HCl (Pyridium) 200 mg TID PO Last administered on 02/06/19 13:50; Admin Dose 200 MG; Start 01/30/19 at 13:00 Saccharomyces Boulardii (Florastor) 250 mg BID PO Last administered on 02/06/19 08:41; Admin Dose 250 MG; Start 01/31/19 at 16:00 Enoxaparin Sodium (Lovenox) 40 mg DAILY SC Last administered on 02/06/19 08:53; Admin Dose 40 MG; Start 01/31/19 at 15:30 Cholecalciferol (Vitamin D) 2,000 unit DAILY PO Last administered on 02/06/19 08:41; Admin Dose 2,000 UNIT; Start 02/01/19 at 10:00 Hydromorphone HCl (Dilaudid) 0.5 mg Q4H PRN IV SEVERE PAIN LEVEL 7-10 Last administered on 02/05/19 12:40; Admin Dose 0.5 MG; Start 02/01/19 at 19:30 Hydromorphone HCl (Dilaudid) 2 mg Q6H PRN PO PAIN LEVEL 4-6 Last administered on 02/05/19 19:06; Admin Dose 2 MG; Start 02/01/19 at 18:00 Lorazepam (Ativan) 1 mg Q4H PRN IV ANXIETY Last administered on 02/05/19 12:40; Admin Dose 1 MG; Start 02/02/19 at 14:30 Clonidine (Catapres) 0.1 mg Q6H PRN PO HIGH BP, SBP > 16; Start 02/02/19 at 14:30 Olanzapine (Zyprexa Zydis) 5 mg DAILY ODT Last administered on 02/06/19 08:41; Admin Dose 5 MG; Start 02/02/19 at 15:30 Hydralazine HCl (Apresoline) 20 mg Q6H PRN IV sbp > 160 Last administered on 02/03/19 11:36; Admin Dose 20 MG; Start 02/03/19 at 05:30 Diltiazem HCl (Cardizem Iv) 10 mg Q6 PRN IV tachycardia Last administered on 02/03/19 09:21; Admin Dose 10 MG; Start 02/03/19 at 08:00 Clonidine HCl (Catapres-Tts 1 Patch) 1 patch Q7D TRANSDERM Last administered on 02/03/19 12:53; Admin Dose 1 PATCH; Start 02/03/19 at 12:00 Metoprolol Tartrate (Lopressor) 5 mg Q4 PRN IV HR>110 Hold SBP<100; Start 02/03/19 at 12:30 Amiodarone HCl (Cordarone) 200 mg BID PO Last administered on 02/06/19 08:42; Admin Dose 200 MG; Start 02/04/19 at 21:00 Potassium Chloride (Potassium Chloride Pwd/Soln) 20 meq PER PROTOCOL PRN PO POTASSIUM REPLACEMENT PROTOCOL; Start 02/05/19 at 07:00 Potassium Chloride (Potassium Chloride Pwd/Soln) 30 meq PER PROTOCOL PRN PO POTASSIUM REPLACEMENT PROTOCOL; Start 02/05/19 at 07:00 Potassium Chloride (Potassium Chloride Pwd/Soln) 40 meq PER PROTOCOL PRN PO POTASSIUM REPLACEMENT PROTOCOL Last administered on 02/05/19 16:59; Admin Dose 40 MEQ; Start 02/05/19 at 07:00 Multivitamins (Multivitamin) 30 ml DAILY PO Last administered on 02/06/19 08:40; Admin Dose 30 ML; Start 02/05/19 at 13:38 Linezolid (Zyvox) 600 mg BID PO Last administered on 02/06/19 11:56; Admin Dose 600 MG; Start 02/06/19 at 11:00 Sodium Chloride 1,000 ml @ 70 mls/hr [id number] IV Last administered on 02/06/19 13:50; Admin Dose 70 MLS/HR; Start 02/06/19 at 12:30 JUMA IRWIN Feb 06, 2019 14:29
[2019-02-06] MEDS: HYDROmorphONE 0.5 MG/0.5 ML SYG IV PRN ×2 (19:43→23:47)
[2019-02-06] MEDS: PROMETHAZINE 25 MG TAB PO SCH (21:25)
[2019-02-06] MEDS: NA BICARBONATE 650 MG TAB PO SCH (21:26)
[2019-02-06] MEDS: ONDANSETRON 4 MG TAB PO PRN (23:57)
[2019-02-06] MEDS: TIZANIDINE 4 MG TAB PO PRN (23:58)
[2019-02-07] VITALS (9 sets, daily range): BP systolic 93–112; BP diastolic 55–69; PULSE 84–97; RESP 18–20
[2019-02-07] MEDS: HYDROmorphONE 0.5 MG/0.5 ML SYG IV PRN ×5 (04:39→22:14)
[2019-02-07] MEDS: SOD CHLORIDE 0.45% 1,000 ML IV SCH ×2 (04:39→17:25)
[2019-02-07] MEDS: PANTOPRAZOLE (EC) 40 MG TAB PO SCH (06:05)
[2019-02-07] MEDS: OLANZAPINE (ODT) 5 MG TAB ODT SCH (08:23)
[2019-02-07] MEDS: PHENAZOPYRIDINE 200 MG TAB PO SCH ×3 (08:23→22:13)
[2019-02-07] MEDS: BISACODYL (EC) 5 MG TAB PO SCH ×2 (08:23→22:08)
[2019-02-07] MEDS: AMIODARONE 200 MG TAB PO SCH ×2 (08:23→21:00)
[2019-02-07] MEDS: NA BICARBONATE 650 MG TAB PO SCH ×3 (08:24→22:13)
[2019-02-07] MEDS: CHOLECALCIFEROL 2,000 UNIT CAP PO SCH (08:24)
[2019-02-07] MEDS: DIAZEPAM 5 MG TAB PO SCH ×4 (08:24→22:07)
[2019-02-07] MEDS: AMITRIPTYLINE 10 MG TAB PO SCH ×2 (08:24→22:08)
[2019-02-07] MEDS: SACCHAROMYCES BOULARDII 250 MG CAP PO SCH ×2 (08:24→22:12)
[2019-02-07] MEDS: ZYVOX 600 MG TAB PO SCH ×2 (08:24→22:14)
[2019-02-07] MEDS: MULTIVITAMINS 30 ML CUP PO SCH (08:27)
[2019-02-07] MEDS: BALSAM PERU/CASTOR OIL 60 GM TUBE TOP SCH (08:29)
[2019-02-07] MEDS: TRULANCE 3 MG PO SCH (08:30)
[2019-02-07] MEDS: CEFEPIME 1GM/50 ML (PMX) 50 ML IVPB SCH ×2 (08:31→22:26)
[2019-02-07] MEDS: ENOXAPARIN 40 MG/0.4 ML SYG SC SCH (08:36)
--- NOTE | 2019-02-07 11:41 | CONS ---
Assessment/Plan Assessment/Plan Hospital Course (Demo Recall) All noted, no acute events, looks comfortable, no fevers Repeat urine culture growing VRE/PSA Antimicrobials: Zyvox and Cefepime Physical examination: Chronically ill appearing wasted middle-aged man who is in no distress. Head atraumatic normocephalic neck is supple chest rise symmetrical breath sounds clear. Heart: S1-S2. Abdomen soft bowel sounds present. Extremities wasted contracted Assessment: 1. Sepsis, resolving 2. Probable aspiration event 3. Recurrent UTI 4. Incomplete quadriplegia 5. Dysphagia. 6. Chronic pain syndrome Plan: Stable, continue abx/aspiration precautions Consultation Date/Type/Reason Admit Date/Time Jan 29, 2019 at 16:47 Initial Consult Date Type of Consult id Requesting Provider: BRYANT LEWIS MD Date/Time of Note DATE: 02/07/19 TIME: 11:40 Exam/Review of Systems Exam Vitals Vital Signs Date Temp Pulse Resp B/P (MAP) Pulse Ox O2 O2 Flow FiO2 Time Delivery Rate 02/07/19 97 08:00 02/07/19 98.2 96/62 (73) 99 Room Air 07:03 02/07/19 04:00 Intake and Output 02/06/19 02/06/19 02/07/19 1515:00 23:00 07:00 IntakeIntake Total 1050 ml 1260 ml 930 ml OutputOutput Total 1050 ml 950 ml BalanceBalance 1050 ml 210 ml -20 ml Results Result Diagram: 02/05/19 0448 02/07/19 0744 Results 24hrs Laboratory Tests Test 02/06/19 13:00 02/07/19 07:44 Blood Gas Specimen Source Blood arterial Arterial Blood Date Drawn 02/06/2019 2:30:42 PM Arterial Blood pH (Temp corrected) 7.331 L Arterial Blood pCO2 (Temp correct) 29.0 L Arterial Blood pO2 (Temp corrected) 138.0 H Arterial Blood HCO3 15.0 L Arterial Blood Base Excess -9.6 L Arterial Blood Oxygen Saturation 98.7 H Matthew Test ACCEPTAB Arterial Blood Gas Puncture Site Right Radial Arterial Blood Carboxyhemoglobin 0.1 Arterial Blood Methemoglobin 1.2 Oxyhemoglobin Percent 97.4 Blood Gas Temperature 37.0 Blood Gas Modality ROOM AIR FiO2 21.0 Blood Gas Critical Value Read Back A HERRERA RN Blood Gas Notified Whom DT Blood Gas Notified Time 02/06/2019 2:50:14 PM Sodium Level 139 Potassium Level 3.6 Chloride Level 114 H Carbon Dioxide Level 17 L Anion Gap 8 Blood Urea Nitrogen 13 Creatinine 0.49 L Est Glomerular Filtrat Rate mL/min > 60 Glucose Level 82 Calcium Level 8.5 Medications Medication Current Medications Amitriptyline HCl (Elavil) 10 mg QAM PO Last administered on 02/07/19 08:24; Admin Dose 10 MG; Start 01/29/19 at 09:00 Amitriptyline HCl (Elavil) 30 mg QHS PO Last administered on 02/06/19 21:25; Admin Dose 30 MG; Start 01/29/19 at 21:00 Diazepam (Valium) 5 mg QID PO Last administered on 02/07/19 08:24; Admin Dose 5 MG; Start 01/28/19 at 23:00 Ondansetron HCl (Zofran Tab) 4 mg Q6 PRN PO NAUSEA AND/OR VOMITING Last administered on 02/06/19 23:57; Admin Dose 4 MG; Start 01/28/19 at 23:00 Pantoprazole (Protonix Tab) 40 mg AC BREAKFAST PO Last administered on 02/07/19 at 06:05; Admin Dose 40 MG; Start 01/29/19 at 07:00 Promethazine HCl (Phenergan) 25 mg QHS PO Last administered on 02/06/19 21:25; Admin Dose 25 MG; Start 01/29/19 at 21:00 Tizanidine HCl (Zanaflex) 4 mg Q8H PRN PO SPASTICITY Last administered on 02/06/19 23:58; Admin Dose 4 MG; Start 01/28/19 at 23:00 Acetaminophen (Tylenol Tab) 650 mg Q6H PRN PO MILD PAIN(1-3)OR ELEVATED TEMP Last administered on 01/30/19 01:56; Admin Dose 650 MG; Start 01/28/19 at 23:00 Cefepime HCl 50 ml @ 100 mls/hr Q12 IVPB Last administered on 02/07/19 08:31; Admin Dose 100 MLS/HR; Start 01/29/19 at 09:00 Bisacodyl (Dulcolax) 10 mg BID PO Last administered on 02/07/19 08:23; Admin Dose 10 MG; Start 01/29/19 at 09:00 Non-Formulary Medication 1 ea DAILY PO Last administered on 02/07/19 08:30; Admin Dose 1 EA; Start 01/29/19 at 09:00 Phenazopyridine HCl (Pyridium) 200 mg TID PO Last administered on 02/07/19 08 :23; Admin Dose 200 MG; Start 01/30/19 at 13:00 Saccharomyces Boulardii (Florastor) 250 mg BID PO Last administered on 02/07/19 08:24; Admin Dose 250 MG; Start 01/31/19 at 16:00 Enoxaparin Sodium (Lovenox) 40 mg DAILY SC Last administered on 02/07/19 08:36; Admin Dose 40 MG; Start 01/31/19 at 15:30 Cholecalciferol (Vitamin D) 2,000 unit DAILY PO Last administered on 02/07/19 08:24; Admin Dose 2,000 UNIT; Start 02/01/19 at 10:00 Hydromorphone HCl (Dilaudid) 0.5 mg Q4H PRN IV SEVERE PAIN LEVEL 7-10 Last administered on 02/07/19 09:13; Admin Dose 0.5 MG; Start 02/01/19 at 19:30 Hydromorphone HCl (Dilaudid) 2 mg Q6H PRN PO PAIN LEVEL 4-6 Last administered on 02/05/19 19:06; Admin Dose 2 MG; Start 02/01/19 at 18:00 Lorazepam (Ativan) 1 mg Q4H PRN IV ANXIETY Last administered on 02/05/19 1 2:40; Admin Dose 1 MG; Start 02/02/19 at 14:30 Clonidine (Catapres) 0.1 mg Q6H PRN PO HIGH BP, SBP > 16; Start 02/02/19 at 14:30 Olanzapine (Zyprexa Zydis) 5 mg DAILY ODT Last administered on 02/07/19 08:23; Admin Dose 5 MG; Start 02/02/19 at 15:30 Hydralazine HCl (Apresoline) 20 mg Q6H PRN IV sbp > 160 Last administered on 02/03/19 11:36; Admin Dose 20 MG; Start 02/03/19 at 05:30 Diltiazem HCl (Cardizem Iv) 10 mg Q6 PRN IV tachycardia Last administered on 02/03/19 09:21; Admin Dose 10 MG; Start 02/03/19 at 08:00 Clonidine HCl (Catapres-Tts 1 Patch) 1 patch Q7D TRANSDERM Last administered on 02/03/19 12:53; Admin Dose 1 PATCH; Start 02/03/19 at 12:00 Metoprolol Tartrate (Lopressor) 5 mg Q4 PRN IV HR>110 Hold SBP<100; Start 02/03/19 at 12:30 Amiodarone HCl (Cordarone) 200 mg BID PO Last administered on 02/07/19 08:23; Admin Dose 200 MG; Start 02/04/19 at 21:00 Potassium Chloride (Potassium Chloride Pwd/Soln) 20 meq PER PROTOCOL PRN PO POTASSIUM REPLACEMENT PROTOCOL; Start 02/05/19 at 07:00 Potassium Chloride (Potassium Chloride Pwd/Soln) 30 meq PER PROTOCOL PRN PO POTASSIUM REPLACEMENT PROTOCOL; Start 02/05/19 at 07:00 Potassium Chloride (Potassium Chloride Pwd/Soln) 40 meq PER PROTOCOL PRN PO POTASSIUM REPLACEMENT PROTOCOL Last administered on 02/05/19 16:59; Admin Dose 40 MEQ; Start 02/05/19 at 07:00 Multivitamins (Multivitamin) 30 ml DAILY PO Last administered on 02/07/19 08:27; Admin Dose 30 ML; Start 02/05/19 at 13:38 Linezolid (Zyvox) 600 mg BID PO Last administered on 02/07/19 08:24; Admin Dose 600 MG; Start 02/06/19 at 11:00 Sodium Chloride 1,000 ml @ 70 mls/hr [id number] IV Last administered on 02/07/19 04:39; Admin Dose 70 MLS/HR; Start 02/06/19 at 12:30 Sodium Bicarbonate (Sodium Bicarbonate Tab) 650 mg TID PO Last administered on 02/07/19 08:24; Admin Dose 650 MG; Start 02/06/19 at 21:00 NOÉ JUNIOR NP Feb 07, 2019 11:41
--- NOTE | 2019-02-07 13:46 | CONS ---
Assessment/Plan Assessment/Plan Hospital Course (Demo Recall) IMPRESSION: 1. Recurrent bouts of tachyarrhythmia consistent with supraventricular tachycardia, question if truly a sinus tachycardia versus likely paroxysmal atrial flutter or atrioventricular amilcar reentrant tachycardia, atrial tachycardia.- now improved on amiodarone 2. Hypertension, uncontrolled currently consistent with hypertensive emergency, unclear etiology in question, rule out cerebrovascular accident in the setting of altered mental state and acute increasing blood pressures.-labile but improved on clonidine TTS 3. Altered mental state/encephalopathy-overall improved 4. urinary tract infection, multidrug resistant. 5. Quadriplegia. 6. Psychiatric disorder. 7. Hypernatremia-slowly improving 8. Leukocytosis, new. 9. Anemia, mild. 10. Abnormal electrocardiogram with inferior and anteroseptal Q's, poor R-wave progression across the anterior precordial leads. -neg trop x 3 Recc: -tele -Continue amiodarone now PO and follow rhythm closely -Continue abx's and f/u cx data -free water for elevated NA -Continue abx's and f/u cx data Consultation Date/Type/Reason Admit Date/Time Jan 29, 2019 at 16:47 Initial Consult Date 02/03/19 Type of Consult Cardiology Reason for Consultation tachycardia Requesting Provider: BRYANT LEWIS MD Date/Time of Note DATE: 02/07/19 TIME: 13:45 Exam/Review of Systems Vital Signs Vitals Vital Signs Date Temp Pulse Resp B/P (MAP) Pulse Ox O2 O2 Flow FiO2 Time Delivery Rate 02/07/19 98.0 85 20 102/69 97 Room Air 11:35 (80) Intake and Output 02/06/19 02/06/19 02/07/19 1515:00 23:00 07:00 IntakeIntake Total 1050 ml 1260 ml 930 ml OutputOutput Total 1050 ml 950 ml BalanceBalance 1050 ml 210 ml -20 ml Exam Exam Review of Systems: CONSTITUTIONAL: No fevers, chills. PULMONARY: No sob CARDIOVASCULAR: No chest pain/palpitations GASTROINTESTINAL: No nausea/vomiting. GENITOURINARY: No hematuria/dysuria. MUSCULOSKELETAL: No myagias/arthalgias. PSYCHIATRIC: The patient denies depression. NEUROLOGIC: No weakness Constitutional: alert, oriented Psych: no complaints Head: normocephalic ENMT: mucosa pink and moist Neck: supple, jvd (9 cm water) Respiratory: clear to auscultation Cardiovascular: regular rate and rhythm Gastrointestinal: soft, non-tender Musculoskeletal: muscle tone (normal) Extremities: edema (none) Neurological: other (quadriplegic) Labs Result Diagram: 02/05/19 0448 02/07/19 0744 Results 24hrs Laboratory Tests Test 02/07/19 07:44 Sodium Level 139 Potassium Level 3.6 Chloride Level 114 H Carbon Dioxide Level 17 L Anion Gap 8 Blood Urea Nitrogen 13 Creatinine 0.49 L Est Glomerular Filtrat Rate mL/min > 60 Glucose Level 82 Calcium Level 8.5 Medications Medications Current Medications Amitriptyline HCl (Elavil) 10 mg QAM PO Last administered on 02/07/19 08:24; Admin Dose 10 MG; Start 01/29/19 at 09:00 Amitriptyline HCl (Elavil) 30 mg QHS PO Last administered on 02/06/19 21:25; Admin Dose 30 MG; Start 01/29/19 at 21:00 Diazepam (Valium) 5 mg QID PO Last administered on 02/07/19 12:59; Admin Dose 5 MG; Start 01/28/19 at 23:00 Ondansetron HCl (Zofran Tab) 4 mg Q6 PRN PO NAUSEA AND/OR VOMITING Last administered on 02/06/19 23:57; Admin Dose 4 MG; Start 01/28/19 at 23:00 Pantoprazole (Protonix Tab) 40 mg AC BREAKFAST PO Last administered on 02/07/19 06:05; Admin Dose 40 MG; Start 01/29/19 at 07:00 Promethazine HCl (Phenergan) 25 mg QHS PO Last administered on 02/06/19 21:25; Admin Dose 25 MG; Start 01/29/19 at 21:00 Tizanidine HCl (Zanaflex) 4 mg Q8H PRN PO SPASTICITY Last administered on 02/06/19 23:58; Admin Dose 4 MG; Start 01/28/19 at 23:00 Acetaminophen (Tylenol Tab) 650 mg Q6H PRN PO MILD PAIN(1-3)OR ELEVATED TEMP Last administered on 01/30/19 01:56; Admin Dose 650 MG; Start 01/28/19 at 23:00 Cefepime HCl 50 ml @ 100 mls/hr Q12 IVPB Last administered on 02/07/19 08:31; Admin Dose 100 MLS/HR; Start 01/29/19 at 09:00 Bisacodyl (Dulcolax) 10 mg BID PO Last administered on 02/07/19 08:23; Admin Dose 10 MG; Start 01/29/19 at 09:00 Non-Formulary Medication 1 ea DAILY PO Last administered on 02/07/19 08:30; Admin Dose 1 EA; Start 01/29/19 at 09:00 Phenazopyridine HCl (Pyridium) 200 mg TID PO Last administered on 02/07/19 12:59; Admin Dose 200 MG; Start 01/30/19 at 13:00 Saccharomyces Boulardii (Florastor) 250 mg BID PO Last administered on 02/07/19 08:24; Admin Dose 250 MG; Start 01/31/19 at 16:00 Enoxaparin Sodium (Lovenox) 40 mg DAILY SC Last administered on 02/07/19 08:36; Admin Dose 40 MG; Start 01/31/19 at 15:30 Cholecalciferol (Vitamin D) 2,000 unit DAILY PO Last administered on 02/07/19 08:24; Admin Dose 2,000 UNIT; Start 02/01/19 at 10:00 Hydromorphone HCl (Dilaudid) 0.5 mg Q4H PRN IV SEVERE PAIN LEVEL 7-10 Last administered on 02/07/19 13:18; Admin Dose 0.5 MG; Start 02/01/19 at 19:30 Hydromorphone HCl (Dilaudid) 2 mg Q6H PRN PO PAIN LEVEL 4-6 Last administered on 02/05/19 19:06; Admin Dose 2 MG; Start 02/01/19 at 18:00 Lorazepam (Ativan) 1 mg Q4H PRN IV ANXIETY Last administered on 02/05/19 12:40; Admin Dose 1 MG; Start 02/02/19 at 14:30 Clonidine (Catapres) 0.1 mg Q6H PRN PO HIGH BP, SBP > 16; Start 02/02/19 at 14:30 Olanzapine (Zyprexa Zydis) 5 mg DAILY ODT Last administered on 02/07/19 08:23; Admin Dose 5 MG; Start 02/02/19 at 15:30 Hydralazine HCl (Apresoline) 20 mg Q6H PRN IV sbp > 160 Last administered on 02/03/19 11:36; Admin Dose 20 MG; Start 02/03/19 at 05:30 Diltiazem HCl (Cardizem Iv) 10 mg Q6 PRN IV tachycardia Last administered on 02/03/19 09:21; Admin Dose 10 MG; Start 02/03/19 at 08:00 Clonidine HCl (Catapres-Tts 1 Patch) 1 patch Q7D TRANSDERM Last administered on 02/03/19 12:53; Admin Dose 1 PATCH; Start 02/03/19 at 12:00 Metoprolol Tartrate (Lopressor) 5 mg Q4 PRN IV HR>110 Hold SBP<100; Start 02/03/19 at 12:30 Amiodarone HCl (Cordarone) 200 mg BID PO Last administered on 02/07/19 08:23; Admin Dose 200 MG; Start 02/04/19 at 21:00 Potassium Chloride (Potassium Chloride Pwd/Soln) 20 meq PER PROTOCOL PRN PO POTASSIUM REPLACEMENT PROTOCOL; Start 02/05/19 at 07:00 Potassium Chloride (Potassium Chloride Pwd/Soln) 30 meq PER PROTOCOL PRN PO POTASSIUM REPLACEMENT PROTOCOL; Start 02/05/19 at 07:00 Potassium Chloride (Potassium Chloride Pwd/Soln) 40 meq PER PROTOCOL PRN PO POTASSIUM REPLACEMENT PROTOCOL Last administered on 02/05/19 16:59; Admin Dose 40 MEQ; Start 02/05/19 at 07:00 Multivitamins (Multivitamin) 30 ml DAILY PO Last administered on 02/07/19 08:27; Admin Dose 30 ML; Start 02/05/19 at 13:38 Linezolid (Zyvox) 600 mg BID PO Last administered on 02/07/19 08:24; Admin Dose 600 MG; Start 02/06/19 at 11:00 Sodium Chloride 1,000 ml @ 70 mls/hr [id number] IV Last administered on 02/07/19 04:39; Admin Dose 70 MLS/HR; Start 02/06/19 at 12:30 Sodium Bicarbonate (Sodium Bicarbonate Tab) 650 mg TID PO Last administered on 6/13/19at 12:59; Admin Dose 650 MG; Start 02/06/19 at 21:00 JUMA IRWIN Feb 07, 2019 13:46
--- NOTE | 2019-02-07 14:24 | PN ---
Date/Time of Note Date/Time of Note DATE: 02/07/19 TIME: 14:21 Assessment/Plan VTE Prophylaxis Risk score (from Ns)>0 risk: 7 SCD applied (from Ns): Yes Pharmacological prophylaxis: NA/contraindicated Pharm contraindication: low risk/ambulating Lines/Catheters IV Catheter Type (from Nrs): Central Line Central line still needed: Yes Assessment/Plan Assessment/Plan #. Sepsis. WBC is rising. Recurrent urinary tract infection. The patient has history of recurrent urinary tract infections in the past. Drain through the ileostomy. The patient had multidrug-resistant urinary tract infection in the past. ucx+GNR, NOW with proteus, now with enterococcus # Uncontrolled HTN ? autonomic dysreflexia> RESOLVED # Afib with RVR # Hypernatremia now with hypokalemia and acidosis? sepsos # Pain control with bladder spasm. # Autonomic dysreflexia. #. Bedbound state. wih incomplete quadriplegia #. History of incomplete quadriplegia. # Labile hypertension. #. Depression. # Anxiety. # Gastroesophageal reflux disease. #. diarrhea nwg c diff #. Anemia # Acute psychiatric decompensation wth hallucinations # Non gap acidosis Assessment/Plan - iv fluids also due to diarrhoea, Continue iv fluids and sodium bicarb - on amiod gtt> no w po - Advance diet - montior diarrhoea> c diff neg - on clonidine patch -Zyprexa daily and elavil -CT scan head neg - stool C. difficile neg - Dilaudid 4 mg po q 6 prn, Zanaflex , Valium. - pt was seen by Dr Cavanaugh, pain control> will fu his recs - cw Pyridium./zyvox/cefepime - GI proph. Protonix -DVT proph. Lovenox dc planning once acidosis improved Result Diagram: 02/05/19 0448 02/07/19 0744 Results 24hrs Laboratory Tests Test 02/07/19 07:44 Sodium Level 139 Potassium Level 3.6 Chloride Level 114 H Carbon Dioxide Level 17 L Anion Gap 8 Blood Urea Nitrogen 13 Creatinine 0.49 L Est Glomerular Filtrat Rate mL/min > 60 Glucose Level 82 Calcium Level 8.5 Subjective 24 Hr Interval Summary Free Text/Dictation Some bladder spasms. Otherwise feels better today Exam/Review of Systems Exam Vitals Vital Signs Date Temp Pulse Resp B/P (MAP) Pulse Ox O2 O2 Flow FiO2 Time Delivery Rate 02/07/19 98.0 85 20 102/69 97 Room Air 11:35 (80) Intake and Output 02/06/19 02/06/19 02/07/19 1515:00 23:00 07:00 IntakeIntake Total 1050 ml 1260 ml 930 ml OutputOutput Total 1050 ml 950 ml BalanceBalance 1050 ml 210 ml -20 ml Exam larry Constitutional: alert Neck: supple, other (surgical wounds) Respiratory: diminished breath sounds Cardiovascular: regular rate and rhythm Gastrointestinal: soft, surgical scars, other (colonotomy, ileostome Genitourinary - Male: other (illeal pouch) Musculoskeletal: muscle weakness, bed bound, Results Results 24hrs Laboratory Tests Test 02/07/19 07:44 Sodium Level 139 Potassium Level 3.6 Chloride Level 114 H Carbon Dioxide Level 17 L Anion Gap 8 Blood Urea Nitrogen 13 Creatinine 0.49 L Est Glomerular Filtrat Rate mL/min > 60 Glucose Level 82 Calcium Level 8.5 Medications Medication Current Medications Amitriptyline HCl (Elavil) 10 mg QAM PO Last administered on 02/07/19 08:24; Admin Dose 10 MG; Start 01/29/19 at 09:00 Amitriptyline HCl (Elavil) 30 mg QHS PO Last administered on 02/06/19 21:25; Admin Dose 30 MG; Start 01/29/19 at 21:00 Diazepam (Valium) 5 mg QID PO Last administered on 02/07/19 12:59; Admin Dose 5 MG; Start 01/28/19 at 23:00 Ondansetron HCl (Zofran Tab) 4 mg Q6 PRN PO NAUSEA AND/OR VOMITING Last administered on 02/06/19 23:57; Admin Dose 4 MG; Start 01/28/19 at 23:00 Pantoprazole (Protonix Tab) 40 mg AC BREAKFAST PO Last administered on 02/07/19 06:05; Admin Dose 40 MG; Start 01/29/19 at 07:00 Promethazine HCl (Phenergan) 25 mg QHS PO Last administered on 02/06/19 21:25; Admin Dose 25 MG; Start 01/29/19 at 21:00 Tizanidine HCl (Zanaflex) 4 mg Q8H PRN PO SPASTICITY Last administered on 02/06/19 23:58; Admin Dose 4 MG; Start 01/28/19 at 23:00 Acetaminophen (Tylenol Tab) 650 mg Q6H PRN PO MILD PAIN(1-3)OR ELEVATED TEMP Last administered on 01/30/19 01:56; Admin Dose 650 MG; Start 01/28/19 at 23:00 Cefepime HCl 50 ml @ 100 mls/hr Q12 IVPB Last administered on 02/07/19 08:31; Admin Dose 100 MLS/HR; Start 01/29/19 at 09:00 Bisacodyl (Dulcolax) 10 mg BID PO Last administered on 02/07/19 08:23; Admin Dose 10 MG; Start 01/29/19 at 09:00 Non-Formulary Medication 1 ea DAILY PO Last administered on 02/07/19 08:30; Admin Dose 1 EA; Start 01/29/19 at 09:00 Phenazopyridine HCl (Pyridium) 200 mg TID PO Last administered on 02/07/19 12:59; Admin Dose 200 MG; Start 01/30/19 at 13:00 Saccharomyces Boulardii (Florastor) 250 mg BID PO Last administered on 02/07/19 at 08:24; Admin Dose 250 MG; Start 01/31/19 at 16:00 Enoxaparin Sodium (Lovenox) 40 mg DAILY SC Last administered on 02/07/19 08:36; Admin Dose 40 MG; Start 01/31/19 at 15:30 Cholecalciferol (Vitamin D) 2,000 unit DAILY PO Last administered on 02/07/19 08:24; Admin Dose 2,000 UNIT; Start 02/01/19 at 10:00 Hydromorphone HCl (Dilaudid) 0.5 mg Q4H PRN IV SEVERE PAIN LEVEL 7-10 Last administered on 02/07/19 13:18; Admin Dose 0.5 MG; Start 02/01/19 at 19:30 Hydromorphone HCl (Dilaudid) 2 mg Q6H PRN PO PAIN LEVEL 4-6 Last administered on 02/05/19 19:06; Admin Dose 2 MG; Start 02/01/19 at 18:00 Lorazepam (Ativan) 1 mg Q4H PRN IV ANXIETY Last administered on 02/05/19 12:40; Admin Dose 1 MG; Start 02/02/19 at 14:30 Clonidine (Catapres) 0.1 mg Q6H PRN PO HIGH BP, SBP > 16; Start 02/02/19 at 14:3 0 Olanzapine (Zyprexa Zydis) 5 mg DAILY ODT Last administered on 02/07/19 08:23; Admin Dose 5 MG; Start 02/02/19 at 15:30 Hydralazine HCl (Apresoline) 20 mg Q6H PRN IV sbp > 160 Last administered on 02/03/19 11:36; Admin Dose 20 MG; Start 02/03/19 at 05:30 Diltiazem HCl (Cardizem Iv) 10 mg Q6 PRN IV tachycardia Last administered on 02/03/19 09:21; Admin Dose 10 MG; Start 02/03/19 at 08:00 Clonidine HCl (Catapres-Tts 1 Patch) 1 patch Q7D TRANSDERM Last administered on 02/03/19 12:53; Admin Dose 1 PATCH; Start 02/03/19 at 12:00 Metoprolol Tartrate (Lopressor) 5 mg Q4 PRN IV HR>110 Hold SBP<100; Start 02/03/19 at 12:30 Amiodarone HCl (Cordarone) 200 mg BID PO Last administered on 02/07/19 08:23; Admin Dose 200 MG; Start 02/04/19 at 21:00 Potassium Chloride (Potassium Chloride Pwd/Soln) 20 meq PER PROTOCOL PRN PO POTASSIUM REPLACEMENT PROTOCOL; Start 02/05/19 at 07:00 Potassium Chloride (Potassium Chloride Pwd/Soln) 30 meq PER PROTOCOL PRN PO POTASSIUM REPLACEMENT PROTOCOL; Start 02/05/19 at 07:00 Potassium Chloride (Potassium Chloride Pwd/Soln) 40 meq PER PROTOCOL PRN PO POTASSIUM REPLACEMENT PROTOCOL Last administered on 02/05/19 16:59; Admin Dose 40 MEQ; Start 02/05/19 at 07:00 Multivitamins (Multivitamin) 30 ml DAILY PO Last administered on 02/07/19 08:27; Admin Dose 30 ML; Start 02/05/19 at 13:38 Linezolid (Zyvox) 600 mg BID PO Last administered on 6/13/19at 08:24; Admin Dose 600 MG; Start 02/06/19 at 11:00 Sodium Chloride 1,000 ml @ 70 mls/hr [id number] IV Last administered on 02/07/19 04:39; Admin Dose 70 MLS/HR; Start 02/06/19 at 12:30 Sodium Bicarbonate (Sodium Bicarbonate Tab) 650 mg TID PO Last administered on 02/07/19 12:59; Admin Dose 650 MG; Start 02/06/19 at 21:00 LILLY SIDDIQI MD Feb 07, 2019 14:24
[2019-02-07] MEDS: PROMETHAZINE 25 MG TAB PO SCH (22:08)
[2019-02-08] VITALS (10 sets, daily range): BP systolic 97–112; BP diastolic 64–76; PULSE 72–100; RESP 14–18
[2019-02-08] MEDS: HYDROmorphONE 0.5 MG/0.5 ML SYG IV PRN ×4 (02:07→15:37)
[2019-02-08] MEDS: LORAZEPAM 2 MG INJ IV PRN ×4 (02:15→17:50)
[2019-02-08] MEDS: PANTOPRAZOLE (EC) 40 MG TAB PO SCH (06:00)
[2019-02-08] MEDS: SOD CHLORIDE 0.45% 1,000 ML IV SCH (06:07)
[2019-02-08] MEDS: NA BICARBONATE 650 MG TAB PO SCH ×2 (08:44→12:15)
[2019-02-08] MEDS: MULTIVITAMINS 30 ML CUP PO SCH (08:44)
[2019-02-08] MEDS: ZYVOX 600 MG TAB PO SCH (08:44)
[2019-02-08] MEDS: DIAZEPAM 5 MG TAB PO SCH ×3 (08:44→17:50)
[2019-02-08] MEDS: SACCHAROMYCES BOULARDII 250 MG CAP PO SCH (08:44)
[2019-02-08] MEDS: BISACODYL (EC) 5 MG TAB PO SCH (08:44)
[2019-02-08] MEDS: PHENAZOPYRIDINE 200 MG TAB PO SCH ×2 (08:44→12:15)
[2019-02-08] MEDS: OLANZAPINE (ODT) 5 MG TAB ODT SCH (08:45)
[2019-02-08] MEDS: AMIODARONE 200 MG TAB PO SCH (08:45)
[2019-02-08] MEDS: AMITRIPTYLINE 10 MG TAB PO SCH (08:46)
[2019-02-08] MEDS: CHOLECALCIFEROL 2,000 UNIT CAP PO SCH (08:46)
[2019-02-08] MEDS: TRULANCE 3 MG PO SCH (08:47)
[2019-02-08] MEDS: BALSAM PERU/CASTOR OIL 60 GM TUBE TOP SCH (09:00)
[2019-02-08] MEDS: CEFEPIME 1GM/50 ML (PMX) 50 ML IVPB SCH (09:00)
[2019-02-08] MEDS: TIZANIDINE 4 MG TAB PO PRN ×2 (09:47→18:46)
[2019-02-08] MEDS: ENOXAPARIN 40 MG/0.4 ML SYG SC SCH (10:00)
[2019-02-08] MEDS ORDERED: LINE600T33 PO (12:39)
[2019-02-08] MEDS ORDERED: AMIO200T4 PO (12:48)
--- NOTE | 2019-02-08 12:59 | CONS ---
Assessment/Plan Assessment/Plan Hospital Course (Demo Recall) All noted, no acute events, no fevers Repeat urine culture growing VRE/PSA Antimicrobials: Zyvox and Cefepime Physical examination: Chronically ill appearing wasted middle-aged man who is in no distress. Head atraumatic normocephalic neck is supple chest rise symmetrical breath sounds clear. Heart: S1-S2. Abdomen soft bowel sounds present. Extremities wasted contracted Assessment: 1. Sepsis, resolving 2. Probable aspiration event 3. Recurrent UTI 4. Incomplete quadriplegia 5. Dysphagia. 6. Chronic pain syndrome Plan: Stable, doubt true UTI, will give a dose of Fosfomycin and ok dc off abx Consultation Date/Type/Reason Admit Date/Time Jan 29, 2019 at 16:47 Initial Consult Date Type of Consult id Requesting Provider: BRYANT LEWIS MD Date/Time of Note DATE: 02/08/19 TIME: 12:57 Exam/Review of Systems Exam Vitals Vital Signs Date Temp Pulse Resp B/P (MAP) Pulse Ox O2 O2 Flow FiO2 Time Delivery Rate 02/08/19 91 12:07 02/08/19 97.5 14 112/67 98 11:28 (82) 02/08/19 Room Air 04:03 Intake and Output 02/07/19 02/07/19 02/08/19 1515:00 23:00 07:00 IntakeIntake Total 1000 ml 1050 ml OutputOutput Total 1900 ml BalanceBalance -900 ml 1050 ml Results Result Diagram: 02/05/19 0448 02/07/19 0744 Medications Medication Current Medications Amitriptyline HCl (Elavil) 10 mg QAM PO Last administered on 02/08/19at 08:46; Admin Dose 10 MG; Start 01/29/19 at 09:00 Amitriptyline HCl (Elavil) 30 mg QHS PO Last administered on 02/07/19at 22:08; Admin Dose 30 MG; Start 01/29/19 at 21:00 Diazepam (Valium) 5 mg QID PO Last administered on 02/08/19at 12:10; Admin Dose 5 MG; Start 01/28/19 at 23:00 Ondansetron HCl (Zofran Tab) 4 mg Q6 PRN PO NAUSEA AND/OR VOMITING Last ad ministered on 02/06/19at 23:57; Admin Dose 4 MG; Start 01/28/19 at 23:00 Pantoprazole (Protonix Tab) 40 mg AC BREAKFAST PO Last administered on 02/08/19 06:00; Admin Dose 40 MG; Start 01/29/19 at 07:00 Promethazine HCl (Phenergan) 25 mg QHS PO Last administered on 02/07/19 22:08; Admin Dose 25 MG; Start 01/29/19 at 21:00 Tizanidine HCl (Zanaflex) 4 mg Q8H PRN PO SPASTICITY Last administered on 09:47; Admin Dose 4 MG; Start 01/28/19 at 23:00 Acetaminophen (Tylenol Tab) 650 mg Q6H PRN PO MILD PAIN(1-3)OR ELEVATED TEMP Last administered on 01/30/19 01:56; Admin Dose 650 MG; Start 01/28/19 at 23:00 Cefepime HCl 50 ml @ 100 mls/hr Q12 IVPB Last administered on 02/08/19 09:00; Admin Dose 100 MLS/HR; Start 01/29/19 at 09:00 Bisacodyl (Dulcolax) 10 mg BID PO Last administered on 02/08/19 08:44; Admin Dose 10 MG; Start 01/29/19 at 09:00 Non-Formulary Medication 1 ea DAILY PO Last administered on 02/08/19 08:47; Admin Dose 1 EA; Start 01/29/19 at 09:00 Phenazopyridine HCl (Pyridium) 200 mg TID PO Last administered on 02/08/19 12:15; Admin Dose 200 MG; Start 01/30/19 at 13:00 Saccharomyces Boulardii (Florastor) 250 mg BID PO Last administered on 02/08/19 08:44; Admin Dose 250 MG; Start 01/31/19 at 16:00 Enoxaparin Sodium (Lovenox) 40 mg DAILY SC Last administered on 02/08/19 10:00; Admin Dose 40 MG; Start 01/31/19 at 15:30 Cholecalciferol (Vitamin D) 2,000 unit DAILY PO Last administered on 02/08/19 08:46; Admin Dose 2,000 UNIT; Start 02/01/19 at 10:00 Hydromorphone HCl (Dilaudid) 0.5 mg Q4H PRN IV SEVERE PAIN LEVEL 7-10 Last administered on 02/08/19 12:10; Admin Dose 0.5 MG; Start 02/01/19 at 19:30 Hydromorphone HCl (Dilaudid) 2 mg Q6H PRN PO PAIN LEVEL 4-6 Last administered on 02/05/19 19:06; Admin Dose 2 MG; Start 02/01/19 at 18:00 Lorazepam (Ativan) 1 mg Q4H PRN IV ANXIETY Last administered on 02/08/19 08:46; Admin Dose 1 MG; Start 02/02/19 at 14:30 Clonidine (Catapres) 0.1 mg Q6H PRN PO HIGH BP, SBP > 16; Start 02/02/19 at 14:30 Olanzapine (Zyprexa Zydis) 5 mg DAILY ODT Last administered on 02/08/19 08:45; Admin Dose 5 MG; Start 02/02/19 at 15:30 Hydralazine HCl (Apresoline) 20 mg Q6H PRN IV sbp > 160 Last administered on 02/03/19 11:36; Admin Dose 20 MG; Start 02/03/19 at 05:30 Diltiazem HCl (Cardizem Iv) 10 mg Q6 PRN IV tachycardia Last administered on 02/03/19 09:21; Admin Dose 10 MG; Start 02/03/19 at 08:00 Clonidine HCl (Catapres-Tts 1 Patch) 1 patch Q7D TRANSDERM Last administered on 02/03/19 12:53; Admin Dose 1 PATCH; Start 02/03/19 at 12:00 Metoprolol Tartrate (Lopressor) 5 mg Q4 PRN IV HR>110 Hold SBP<100; Start 02/03/19 at 12:30 Amiodarone HCl (Cordarone) 200 mg BID PO Last administered on 02/08/19 08:45; Admin Dose 200 MG; Start 02/04/19 at 21:00 Potassium Chloride (Potassium Chloride Pwd/Soln) 20 meq PER PROTOCOL PRN PO POTASSIUM REPLACEMENT PROTOCOL; Start 02/05/19 at 07:00 Potassium Chloride (Potassium Chloride Pwd/Soln) 30 meq PER PROTOCOL PRN PO POTASSIUM REPLACEMENT PROTOCOL; Start 02/05/19 at 07:00 Potassium Chloride (Potassium Chloride Pwd/Soln) 40 meq PER PROTOCOL PRN PO POTASSIUM REPLACEMENT PROTOCOL Last administered on 02/05/19 16:59; Admin Dose 40 MEQ; Start 02/05/19 at 07:00 Multivitamins (Multivitamin) 30 ml DAILY PO Last administered on 02/08/19 08:44; Admin Dose 30 ML; Start 02/05/19 at 13:38 Linezolid (Zyvox) 600 mg BID PO Last administered on 02/08/19 08:44; Admin Dose 600 MG; Start 02/06/19 at 11:00 Sodium Chloride 1,000 ml @ 70 mls/hr [id number] IV Last administered on 02/08/19 06:07; Admin Dose 70 MLS/HR; Start 02/06/19 at 12:30 Sodium Bicarbonate (Sodium Bicarbonate Tab) 650 mg TID PO Last administered on 02/08/19 12:15; Admin Dose 650 MG; Start 02/06/19 at 21:00 NOÉ JUNIOR NP Feb 08, 2019 12:59
[2019-02-08] MEDS ORDERED: FOSFOMYCIN 3 GM PACKET PO ONE (14:00)
--- NOTE | 2019-02-08 16:30 | QN ---
Documentation Comment pt seen and examined with [employer] dc home today LILLY SIDDIQI MD Feb 08, 2019 16:30
[2019-02-08] MEDS: HYDROmorphONE 2 MG TAB PO PRN (18:47)
== END 2019-02-08 21:40 | disposition home or self-care (01) | DRG 689 ==
LOC: E/R 15:52 → 5EC 19:08 → OBSVTOIN 01-29 16:47 → ICU 02-03 08:48 → 6WM 02-05 16:21
PROVIDERS: ADMIT Internal Medicine Nephrology; ATTEND Internal Medicine Nephrology
PROC: 06HM33Z Insertion of Infusion Device into Right Femoral Vein, Percutaneous Approach (ICD-10-PCS; principal; 2019-02-05)
DX: N39.0 Urinary tract infection, site not specified (principal); G82.50 Quadriplegia, unspecified; A41.9 Sepsis, unspecified organism; I47.1 Supraventricular tachycardia; F33.9 Major depressive disorder, recurrent, unspecified; I16.1 Hypertensive emergency; G93.40 Encephalopathy, unspecified; R44.3 Hallucinations, unspecified; G90.4 Autonomic dysreflexia; Z74.01 Bed confinement status; K21.9 Gastro-esophageal reflux disease without esophagitis; Z93.2 Ileostomy status; B96.4 Proteus (mirabilis) (morganii) as the cause of diseases classified elsewhere; R09.89 Other specified symptoms and signs involving the circulatory and respiratory systems; F41.9 Anxiety disorder, unspecified; R25.2 Cramp and spasm; N32.89 Other specified disorders of bladder; R19.7 Diarrhea, unspecified; G89.4 Chronic pain syndrome; R13.12 Dysphagia, oropharyngeal phase
CPT/HCPCS: 36415; 36600; 70450; 71045; 80048; 80053; 80202; 81001; 82550; 82553; 82652; 82803; 83540; 83605; 83690; 83735; 84100; 84443; 84484; 85025; 85610; 87075; 87081; 87086; 92526; 92610; 93005; 93306; 99217; C1751; G0378; J0278; J0282; J0360; J0692; J1170; J1650; J2060; J3370; J3475; J7030; J7040; J7042; J7050; J7060; J7070

== ENCOUNTER 2019-03-06 15:45 | Inpatient (IN) | payer MEDICARE, OTHER ==
[~2019-03-06] VITALS: Ht 170.2 cm; Wt 63.0 kg
[~2019-03-06 15:45] MED LIST changes: +AMIO200T4 PO; -BACL20TA PO; +CHOL200073 PO; -CLON-379 PO; +CLON0.2T5 PO; -DIC20 PO; -FOLI-49 PO; +HYDR4TAB51 PO; +LINE600T33 PO; -METH150T PO; -NALO25TA PO; +ONDA4TAB13 PO; -ONDA4TAB8 PO; +PANT40TA4 PO; +PHEN-717 PO; -PREG50CA PO; +PROM25TA14 PO; +SACC250C PO; +TIZA4CAP6 PO; -TIZA4TAB PO
[2019-03-06] MEDS ORDERED: SODIUM CHLORIDE 0.9% 1L BAG IV* STA (17:37)
[2019-03-06] MEDS ORDERED: CEFTRIAXONE 1 GM/50 ML (PMX) 50 ML IVPB ONE (18:00)
[2019-03-06] MEDS ORDERED: MIDODRINE 5 MG TAB PO ONE (18:30)
[2019-03-06] MEDS ORDERED: ONDANSETRON 4 MG INJ IV STA (19:00)
[2019-03-06] MEDS ORDERED: FENTAnyl 50 MCG/ML VIAL IV ONE (19:00)
[2019-03-06] MEDS ORDERED: ACETAMINOPHEN 325 MG TAB PO PRN (20:30)
[2019-03-06] MEDS: ONDANSETRON 4 MG INJ IV PRN (22:14)
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
[2019-03-07] VITALS (7 sets, daily range): BP systolic 86–111; BP diastolic 61–76; PULSE 89–101; RESP 18–22; Ht 170.2 cm; Wt 63.0 kg
[2019-03-07] MEDS ORDERED: ACETAMINOPHEN 325 MG TAB PO PRN
[2019-03-07] MEDS ORDERED: ONDANSETRON 4 MG TAB PO PRN
[2019-03-07] MEDS ORDERED: PROMETHAZINE 25 MG TAB PO PRN
[2019-03-07] MEDS: HYDROmorphONE 0.5 MG/0.5 ML SYG IV PRN ×5 (00:56→20:13)
[2019-03-07] MEDS: SOD CHLORIDE 0.9% 1,000 ML IV SCH ×2 (00:56→13:36)
[2019-03-07] MEDS: ONDANSETRON 4 MG INJ IV PRN ×2 (03:17→13:29)
[2019-03-07] MEDS: DIAZEPAM 5 MG TAB PO PRN (03:17)
[2019-03-07] MEDS: PANTOPRAZOLE (EC) 40 MG TAB PO SCH (05:43)
[2019-03-07] MEDS ORDERED: HYDROmorphONE 0.5 MG/0.5 ML SYG IV ONE (06:38)
[2019-03-07] MEDS: MIDODRINE 5 MG TAB PO SCH (09:43)
[2019-03-07] MEDS: AMIODARONE 200 MG TAB PO SCH ×2 (09:43→20:14)
[2019-03-07] MEDS: CHOLECALCIFEROL 2,000 UNIT CAP PO SCH (09:43)
[2019-03-07] MEDS: TIZANIDINE 4 MG TAB PO PRN ×2 (13:29→20:56)
--- NOTE | 2019-03-07 15:29 | QN ---
Documentation Comment Pt seen and examined LILLY SIDDIQI MD Mar 07, 2019 15:29
[2019-03-07] MEDS ORDERED: CEFTRIAXONE 1 GM/50 ML (PMX) 50 ML IVPB SCH ×2 (17:00)
[2019-03-07] MEDS: CEFEPIME 1GM/50 ML (PMX) 50 ML IVPB SCH (17:36)
[2019-03-07] MEDS: AMITRIPTYLINE 10 MG TAB PO SCH (20:13)
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
[2019-03-08] MEDS: CEFEPIME 1GM/50 ML (PMX) 50 ML IVPB SCH ×3 (00:08→21:21)
[2019-03-08] MEDS: HYDROmorphONE 0.5 MG/0.5 ML SYG IV PRN ×6 (00:08→21:41)
[2019-03-08] MEDS: DIAZEPAM 5 MG TAB PO PRN ×2 (00:18→10:08)
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
[2019-03-08 03:43] VITALS: BP 97/63; PULSE 100; RESP 21
[2019-03-08] MEDS: PANTOPRAZOLE (EC) 40 MG TAB PO SCH (05:38)
[2019-03-08] MEDS: SOD CHLORIDE 0.9% 1,000 ML IV SCH ×2 (05:58→21:27)
[2019-03-08 07:48] VITALS: BP 114/70; PULSE 106; RESP 18
[2019-03-08] MEDS: CHOLECALCIFEROL 2,000 UNIT CAP PO SCH (10:08)
[2019-03-08] MEDS: TIZANIDINE 4 MG TAB PO PRN (10:08)
[2019-03-08] MEDS: AMIODARONE 200 MG TAB PO SCH ×2 (10:09→21:33)
[2019-03-08] MEDS: MIDODRINE 5 MG TAB PO SCH (10:09)
[2019-03-08 11:34] VITALS: BP 82/59; PULSE 88; RESP 17
--- NOTE | 2019-03-08 14:52 | PN ---
Date/Time of Note Date/Time of Note DATE: 03/08/19 TIME: 14:46 Assessment/Plan VTE Prophylaxis Risk score (from Ns)>0 risk: 3 SCD applied (from [facility]): Yes Pharmacological prophylaxis: LMWH Lines/Catheters IV Catheter Type ([facility]): Peripheral IV Assessment/Plan Hospital Course 1. Sepsis, secondary to urinary tract infection with hypotension, tachycardia. 2. 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 3. Hyponatremia, likely secondary to dehydration, nausea. 4. Chronic pain control. 5. History of recurrent UTIs in the past. 6. Incomplete quadriplegia. 7. Hypertension. 8. Psychiatric disorder. 9. Autonomic dysreflexia. 10. Bedbound state. 11. Gastroesophageal reflux disease. 12. Normocytic hypochromic anemia Assessment/Plan -tele. -DVT proph. SCD bilaterally, start LOvenox - We will continue the patient with IV fluids. -c/w IV cefepime. GI proph. Protonix PO -pending blood culture results. -c/w midodrine. -Continue the patient on IV Dilaudid, Valium. - ID dr Araujo Result Diagram: 03/07/19 0539 03/07/19 0539 Subjective 24 Hr Interval Summary Gastrointestinal: pain Musculoskeletal: back pain Exam/Review of Systems Exam Vitals Vital Signs Date Temp Pulse Resp B/P (MAP) Pulse Ox O2 O2 Flow FiO2 Time Delivery Rate 03/08/19 98.9 88 17 82/59 (67) 94 11:34 03/06/19 Room Air 22:31 Intake and Output 03/07/19 03/07/19 03/08/19 1515:00 23:00 07:00 IntakeIntake Total 120 ml OutputOutput Total 650 ml 450 ml BalanceBalance -530 ml -450 ml Constitutional: alert, oriented, frail Neck: supple Respiratory: diminished breath sounds Cardiovascular: regular rate and rhythm Gastrointestinal: soft, surgical scars, other (colostomy, ileostomy) Musculoskeletal: muscle weakness Skin: other (pale) Medications Medication Current Medications Amiodarone HCl (Cordarone) 200 mg BID PO Last administered on 03/08/19at 10:09; Admin Dose 200 MG; Start 03/07/19 at 09:00 Amitriptyline HCl (Elavil) 10 mg HS PO Last administered on 03/07/19 20:13; Admin Dose 10 MG; Start 03/07/19 at 21:00 Cholecalciferol (Vitamin D) 4,000 unit DAILY PO Last administered on 03/08/19 10:08; Admin Dose 4,000 UNIT; Start 03/07/19 at 09:00 Diazepam (Valium) 5 mg Q6H PRN PO ANXIETY Last administered on 03/08/19 10:08; Admin Dose 5 MG; Start 03/07/19 at 00:00 Ondansetron HCl (Zofran Tab) 4 mg Q6H PRN PO NAUSEA AND/OR VOMITING Last administered on 03/08/19 05:49; Admin Dose 4 MG; Start 03/07/19 at 00:00 Midodrine (Proamatine) 5 mg DAILY PO Last administered on 03/08/19 10:09; Admin Dose 5 MG; Start 03/07/19 at 09:00 Pantoprazole (Protonix Tab) 40 mg DAILY@06 PO Last administered on 03/08/19 05:38; Admin Dose 40 MG; Start 03/07/19 at 06:00 Promethazine HCl (Phenergan) 25 mg HS PRN PO NAUSEA AND/OR VOMITING; Start 03/07/19 at 00:00 Tizanidine HCl (Zanaflex) 4 mg TID PRN PO spasticity Last administered on 03/08/19 10:08; Admin Dose 4 MG; Start 03/07/19 at 00:00 Acetaminophen (Tylenol Tab) 650 mg Q6H PRN PO MILD PAIN(1-3)OR ELEVATED TEMP; Start 03/07/19 at 00:00 Sodium Chloride 1,000 ml @ 70 mls/hr [id number] IV Last administered on 03/08/19 05:58; Admin Dose 70 MLS/HR; Start 03/07/19 at 00:00 Hydromorphone HCl (Dilaudid) 4 mg Q6H PRN PO SEVERE PAIN LEVEL 7-10; Start 03/07/19 at 05:30 Hydromorphone HCl (Dilaudid) 0.5 mg Q4H PRN IV SEVERE PAIN LEVEL 7-10 Last administered on 03/08/19 13:19; Admin Dose 0.5 MG; Start 03/07/19 at 15:30 Cefepime HCl 50 ml @ 100 mls/hr Q12 IVPB Last administered on 03/08/19at 10:10; Admin Dose 100 MLS/HR; Start 03/07/19 at 16:00 LUZ DOMÍNGUEZ Mar 08, 2019 14:52
--- NOTE | 2019-03-08 14:53 | CONS ---
Assessment/Plan Assessment/Plan Hospital Course (Demo Recall) No acute events overnight he is sleeping in no distress no fevers WBC 9.3 neutrophils 84.1 BUN 6 creatinine 0.34 Microbiology: Blood culture negative urine cultures growing Proteus mirabilis Chest x-ray on admission revealed basilar atelectasis Physical examination: Chronically ill appearing wasted middle-aged man who is in no distress. Head atraumatic normocephalic neck is supple chest rise symmetrical breath sounds clear. Heart: S1-S2. Abdomen soft bowel sounds present. Extremities wasted contracted Assessment: 1. Sepsis, resolving 2. Recurrent UTI 3. Incomplete quadriplegia 4. Dysphagia. 5. Chronic pain syndrome Plan: Stable, continue antibiotics Consultation Date/Type/Reason Admit Date/Time Mar 06, 2019 at 20:22 Initial Consult Date Type of Consult id Date/Time of Note DATE: 03/08/19 TIME: 14:53 Exam/Review of Systems Exam Vitals Vital Signs Date Temp Pulse Resp B/P (MAP) Pulse Ox O2 O2 Flow FiO2 Time Delivery Rate 03/08/19 98.9 88 17 82/59 (67) 94 11:34 03/06/19 Room Air 22:31 Intake and Output 03/07/19 03/07/19 03/08/19 1515:00 23:00 07:00 IntakeIntake Total 120 ml OutputOutput Total 650 ml 450 ml BalanceBalance -530 ml -450 ml Results Result Diagram: 03/07/19 0539 03/07/19 0539 Medications Medication Current Medications Amiodarone HCl (Cordarone) 200 mg BID PO Last administered on 03/08/19at 10:09; Admin Dose 200 MG; Start 03/07/19 at 09:00 Amitriptyline HCl (Elavil) 10 mg HS PO Last administered on 03/07/19at 20:13; Admin Dose 10 MG; Start 03/07/19 at 21:00 Cholecalciferol (Vitamin D) 4,000 unit DAILY PO Last administered on 03/08/19at 10:08; Admin Dose 4,000 UNIT; Start 03/07/19 at 09:00 Diazepam (Valium) 5 mg Q6H PRN PO ANXIETY Last administered on 03/08/19at 10:08; Admin Dose 5 MG; Start 03/07/19 at 00:00 Ondansetron HCl (Zofran Tab) 4 mg Q6H PRN PO NAUSEA AND/OR VOMITING Last administered on 03/08/19 05:49; Admin Dose 4 MG; Start 03/07/19 at 00:00 Midodrine (Proamatine) 5 mg DAILY PO Last administered on 03/08/19 10:09; Admin Dose 5 MG; Start 03/07/19 at 09:00 Pantoprazole (Protonix Tab) 40 mg DAILY@06 PO Last administered on 03/08/19 05:38; Admin Dose 40 MG; Start 03/07/19 at 06:00 Promethazine HCl (Phenergan) 25 mg HS PRN PO NAUSEA AND/OR VOMITING; Start 03/07/19 at 00:00 Tizanidine HCl (Zanaflex) 4 mg TID PRN PO spasticity Last administered on 03/08/19 10:08; Admin Dose 4 MG; Start 03/07/19 at 00:00 Acetaminophen (Tylenol Tab) 650 mg Q6H PRN PO MILD PAIN(1-3)OR ELEVATED TEMP; Start 03/07/19 at 00:00 Sodium Chloride 1,000 ml @ 70 mls/hr [id number] IV Last administered on 03/08/19 05:58; Admin Dose 70 MLS/HR; Start 03/07/19 at 00:00 Hydromorphone HCl (Dilaudid) 4 mg Q6H PRN PO SEVERE PAIN LEVEL 7-10; Start 03/07/19 at 05:30 Hydromorphone HCl (Dilaudid) 0.5 mg Q4H PRN IV SEVERE PAIN LEVEL 7-10 Last administered on 03/08/19 13:19; Admin Dose 0.5 MG; Start 03/07/19 at 15:30 Cefepime HCl 50 ml @ 100 mls/hr Q12 IVPB Last administered on 03/08/19 10:10; Admin Dose 100 MLS/HR; Start 03/07/19 at 16:00 NOÉ JUNIOR NP Mar 08, 2019 14:53
[2019-03-08 15:02] VITALS: BP 115/85; PULSE 57; RESP 18
[2019-03-08] MEDS: HYDROmorphONE 4 MG TAB PO PRN (16:27)
[2019-03-08 19:56] VITALS: BP 94/62; PULSE 77; RESP 20
[2019-03-08] MEDS: AMITRIPTYLINE 10 MG TAB PO SCH (21:21)
[2019-03-08 23:36] VITALS: BP 100/67; PULSE 102; RESP 21
[2019-03-09] MEDS: HYDROmorphONE 0.5 MG/0.5 ML SYG IV PRN ×5 (01:43→21:27)
[2019-03-09 03:36] VITALS: BP 97/61; PULSE 98; RESP 17
[2019-03-09] MEDS: PANTOPRAZOLE (EC) 40 MG TAB PO SCH (05:53)
[2019-03-09 08:12] VITALS: BP 110/78; PULSE 94; RESP 20
[2019-03-09] MEDS: AMIODARONE 200 MG TAB PO SCH ×2 (08:42→21:18)
[2019-03-09] MEDS: MIDODRINE 5 MG TAB PO SCH (08:42)
[2019-03-09] MEDS: CEFEPIME 1GM/50 ML (PMX) 50 ML IVPB SCH ×2 (08:42→21:18)
[2019-03-09] MEDS: CHOLECALCIFEROL 2,000 UNIT CAP PO SCH (08:42)
[2019-03-09] MEDS: ENOXAPARIN 40 MG/0.4 ML SYG SC SCH (08:46)
[2019-03-09] MEDS: TIZANIDINE 4 MG TAB PO PRN ×3 (08:48→21:37)
[2019-03-09] MEDS: HYDROmorphONE 4 MG TAB PO PRN (08:48)
[2019-03-09] MEDS: SOD CHLORIDE 0.9% 1,000 ML IV SCH (09:12)
[2019-03-09 11:41] VITALS: BP 92/61; PULSE 83; RESP 18
--- NOTE | 2019-03-09 15:01 | PN ---
Date/Time of Note Date/Time of Note DATE: 03/09/19 TIME: 14:59 Assessment/Plan VTE Prophylaxis Risk score (from [facility] [place]0 risk: 2 SCD applied (from [facility] [place] Yes Pharmacological prophylaxis: LMWH Lines/Catheters IV C[facility]ter Type (from [facility]): [place] Assessment/Plan Hospital Course 1. Sepsis, secondary to urinary tract infection with hypotension, tachycardia. 2. 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 3. Hyponatremia, likely secondary to dehydration, nausea. 4. Chronic pain control. 5. History of recurrent UTIs in the past. 6. Incomplete quadriplegia. 7. Hypertension. 8. Psychiatric disorder. 9. Autonomic dysreflexia. 10. Bedbound state. 11. Gastroesophageal reflux disease. 12. Normocytic hypochromic anemia Assessment/Plan -tele. -start ferrlicit -bl cul are neg -DVT proph. SCD bilaterally, c/w LOvenox - We will continue the patient with IV fluids. -c/w IV cefepime. -GI proph. Protonix PO -c/w midodrine. -Continue the patient on IV Dilaudid, Valium. - ID dr Araujo, inquire c.w what A.b, can dc with Cefipime q 12 for 7 days total -asked case mangers Result Diagram: 03/09/1952603/09/19526 Results 24hrs Laboratory Tests Test 03/09/19 05:27 03/09/19 05:36 White Blood Count 6.3 # Red Blood Count 3.07 L Hemoglobin 9.3 L Hematocrit 27.7 L Mean Corpuscular Volume 90.2 Mean Corpuscular Hemoglobin 30.3 Mean Corpuscular Hemoglobin Concent 33.6 Red Cell Distribution Width 14.6 H Platelet Count 254 Mean Platelet Volume 9.7 Immature Granulocytes % 0.500 H Neutrophils % 72.2 Lymphocytes % 14.9 L Monocytes % 11.7 H Eosinophils % 0.2 Basophils % 0.5 Nucleated Red Blood Cells % 0.0 Immature Granulocytes # 0.030 Neutrophils # 4.6 Lymphocytes # 0.9 Monocytes # 0.7 Eosinophils # 0.0 Basophils # 0.0 Nucleated Red Blood Cells # 0.0 Sodium Level 139 Potassium Level 4.1 Chloride Level 107 Carbon Dioxide Level 17 L Anion Gap 15 H Blood Urea Nitrogen 7 Creatinine 0.31 L Est Glomerular Filtrat Rate mL/min > 60 Glucose Level 62 #L Calcium Level 9.7 Iron Level 11 L Total Iron Binding Capacity 282 Percent Iron Saturation 4 L Subjective 24 Hr Interval Summary Gastrointestinal: pain Exam/Review of Systems Exam Vitals Vital Signs Date Temp Pulse Resp B/P (MAP) Pulse Ox O2 O2 Flow FiO2 Time Delivery Rate 03/09/19 98.7 83 18 92/61 (71) 96 Room Air 11:41 Intake and Output 03/08/19 03/08/19 03/09/19 1515:00 23:00 07:00 IntakeIntake Total 50 ml 1050 ml OutputOutput Total 600 ml 650 ml BalanceBalance 50 ml 450 ml -650 ml Constitutional: alert, oriented Gastrointestinal: soft, surgical scars, other (colostomy and illeostomy) Musculoskeletal: muscle weakness Neurological: other (quardiplegic) Skin: other (palw) Results Results 24hrs Laboratory Tests Test 03/09/19 05:27 03/09/19 05:36 White Blood Count 6.3 # Red Blood Count 3.07 L Hemoglobin 9.3 L Hematocrit 27.7 L Mean Corpuscular Volume 90.2 Mean Corpuscular Hemoglobin 30.3 Mean Corpuscular Hemoglobin Concent 33.6 Red Cell Distribution Width 14.6 H Platelet Count 254 Mean Platelet Volume 9.7 Immature Granulocytes % 0.500 H Neutrophils % 72.2 Lymphocytes % 14.9 L Monocytes % 11.7 H Eosinophils % 0.2 Basophils % 0.5 Nucleated Red Blood Cells % 0.0 Immature Granulocytes # 0.030 Neutrophils # 4.6 Lymphocytes # 0.9 Monocytes # 0.7 Eosinophils # 0.0 Basophils # 0.0 Nucleated Red Blood Cells # 0.0 Sodium Level 139 Potassium Level 4.1 Chloride Level 107 Carbon Dioxide Level 17 L Anion Gap 15 H Blood Urea Nitrogen 7 Creatinine 0.31 L Est Glomerular Filtrat Rate mL/min > 60 Glucose Level 62 #L Calcium Level 9.7 Iron Level 11 L Total Iron Binding Capacity 282 Percent Iron Saturation 4 L Medications Medication Current Medications Amiodarone HCl (Cordarone) 200 mg BID PO Last administered on 03/09/19at 08:42; Admin Dose 200 MG; Start 03/07/19 at 09:00 Amitriptyline HCl (Elavil) 10 mg HS PO Last administered on 03/08/19at 21:21; Admin Dose 10 MG; Start 03/07/19 at 21:00 Cholecalciferol (Vitamin D) 4,000 unit DAILY PO Last administered on 03/09/19 08:42; Admin Dose 4,000 UNIT; Start 03/07/19 at 09:00 Diazepam (Valium) 5 mg Q6H PRN PO ANXIETY Last administered on 03/08/19 10:08; Admin Dose 5 MG; Start 03/07/19 at 00:00 Ondansetron HCl (Zofran Tab) 4 mg Q6H PRN PO NAUSEA AND/OR VOMITING Last administered on 03/08/19 05:49; Admin Dose 4 MG; Start 03/07/19 at 00:00 Midodrine (Proamatine) 5 mg DAILY PO Last administered on 03/09/19 08:42; Admin Dose 5 MG; Start 03/07/19 at 09:00 Pantoprazole (Protonix Tab) 40 mg DAILY@06 PO Last administered on 03/09/19 05:53; Admin Dose 40 MG; Start 03/07/19 at 06:00 Promethazine HCl (Phenergan) 25 mg HS PRN PO NAUSEA AND/OR VOMITING; Start 03/07/19 at 00:00 Tizanidine HCl (Zanaflex) 4 mg TID PRN PO spasticity Last administered on 03/09/19 08:48; Admin Dose 4 MG; Start 03/07/19 at 00:00 Acetaminophen (Tylenol Tab) 650 mg Q6H PRN PO MILD PAIN(1-3)OR ELEVATED TEMP; Start 03/07/19 at 00:00 Sodium Chloride 1,000 ml @ 70 mls/hr [id number] IV Last administered on 03/09/19 09:12; Admin Dose 70 MLS/HR; Start 03/07/19 at 00:00 Hydromorphone HCl (Dilaudid) 4 mg Q6H PRN PO SEVERE PAIN LEVEL 7-10 Last administered on 03/09/19 08:48; Admin Dose 4 MG; Start 03/07/19 at 05:30 Hydromorphone HCl (Dilaudid) 0.5 mg Q4H PRN IV SEVERE PAIN LEVEL 7-10 Last administered on 03/09/19 12:50; Admin Dose 0.5 MG; Start 03/07/19 at 15:30 Cefepime HCl 50 ml @ 100 mls/hr Q12 IVPB Last administered on 03/09/19at 08:42; Admin Dose 100 MLS/HR; Start 03/07/19 at 16:00 Enoxaparin Sodium (Lovenox) 40 mg DAILY SC Last administered on 03/09/19at 08:46; Admin Dose 40 MG; Start 03/09/19 at 09:00 LUZ DOMÍNGUEZ Mar 09, 2019 15:01
[2019-03-09 15:56] VITALS: BP 149/94; PULSE 86; RESP 20
[2019-03-09] MEDS: SOD FERRIC GLUC COMPLX 125 MG in SOD CHLORIDE 0.9% 100 ML IVPB SCH (16:03)
--- NOTE | 2019-03-09 17:38 | CONS ---
Consultation Date/Type/Reason Admit Date/Time Mar 06, 2019 at 20:22 Initial Consult Date Type of Consult SUBJECTIVE: Pt is sleeping. No acute event sover night. NO fevers. VS: stable T: 98.7 LABS: Reviewed. WBC- 6.3 Microbiology: Blood culture negative urine cultures growing Proteus mirabilis URINE CULTURE Final Organism 1 PROTEUS MIRABILIS COLONY COUNT >100,000 CFU/ml P. MIRAB M.I.C. RX --------- --- AMPICILLIN >=32 R CEFOTAXIME S CIPROFLOXACIN >=4 R GENTAMICIN <=1 S LEVOFLOXACIN >=8 R NITROFURANTOIN 128 R TOBRAMYCIN <=1 S TRIMETHOPRIM/SULFAMETHOXAZOLE >=320 R ANTBX: Cefepime Chest x-ray on admission revealed basilar atelectasis Physical examination: GEN: Chronically ill appearing wasted middle-aged man who is in no distress. HENT: Head atraumatic normocephalic; neck is supple PULM: chest rise symmetrical breath sounds clear. Heart: S1-S2. Abdomen soft bowel sounds present. Extremities wasted contracted Assessment: 1. Sepsis, resolving 2. Recurrent UTI 3. Incomplete quadriplegia 4. Dysphagia. 5. Chronic pain syndrome Plan: Pt is stable. Continue current IV antibiotics. Date/Time of Note DATE: 03/09/19 TIME: 17:31 Exam/Review of Systems Exam Vitals Vital Signs Date Temp Pulse Resp B/P (MAP) Pulse Ox O2 O2 Flow FiO2 Time Delivery Rate 03/09/19 98.7 86 20 149/94 97 Room Air 15:56 (112) Intake and Output 03/08/19 03/08/19 03/09/19 1515:00 23:00 07:00 IntakeIntake Total 50 ml 1050 ml OutputOutput Total 600 ml 650 ml BalanceBalance 50 ml 450 ml -650 ml Results Result Diagram: 03/09/19 0527 03/09/19 0527 Results 24hrs Laboratory Tests Test 03/09/19 05:27 03/09/19 05:36 White Blood Count 6.3 # Red Blood Count 3.07 L Hemoglobin 9.3 L Hematocrit 27.7 L Mean Corpuscular Volume 90.2 Mean Corpuscular Hemoglobin 30.3 Mean Corpuscular Hemoglobin Concent 33.6 Red Cell Distribution Width 14.6 H Platelet Count 254 Mean Platelet Volume 9.7 Immature Granulocytes % 0.500 H Neutrophils % 72.2 Lymphocytes % 14.9 L Monocytes % 11.7 H Eosinophils % 0.2 Basophils % 0.5 Nucleated Red Blood Cells % 0.0 Immature Granulocytes # 0.030 Neutrophils # 4.6 Lymphocytes # 0.9 Monocytes # 0.7 Eosinophils # 0.0 Basophils # 0.0 Nucleated Red Blood Cells # 0.0 Sodium Level 139 Potassium Level 4.1 Chloride Level 107 Carbon Dioxide Level 17 L Anion Gap 15 H Blood Urea Nitrogen 7 Creatinine 0.31 L Est Glomerular Filtrat Rate mL/min > 60 Glucose Level 62 #L Calcium Level 9.7 Iron Level 11 L Total Iron Binding Capacity 282 Percent Iron Saturation 4 L Medications Medication Current Medications Amiodarone HCl (Cordarone) 200 mg BID PO Last administered on 03/09/19 08:42; Admin Dose 200 MG; Start 03/07/19 at 09:00 Amitriptyline HCl (Elavil) 10 mg HS PO Last administered on 03/08/19 21:21; Admin Dose 10 MG; Start 03/07/19 at 21:00 Cholecalciferol (Vitamin D) 4,000 unit DAILY PO Last administered on 03/09/19 08:42; Admin Dose 4,000 UNIT; Start 03/07/19 at 09:00 Diazepam (Valium) 5 mg Q6H PRN PO ANXIETY Last administered on 03/08/19 10:08; Admin Dose 5 MG; Start 03/07/19 at 00:00 Ondansetron HCl (Zofran Tab) 4 mg Q6H PRN PO NAUSEA AND/OR VOMITING Last administered on 03/08/19 05:49; Admin Dose 4 MG; Start 03/07/19 at 00:00 Midodrine (Proamatine) 5 mg DAILY PO Last administered on 03/09/19 08:42; Admin Dose 5 MG; Start 03/07/19 at 09:00 Pantoprazole (Protonix Tab) 40 mg DAILY@06 PO Last administered on 03/09/19 05:53; Admin Dose 40 MG; Start 03/07/19 at 06:00 Promethazine HCl (Phenergan) 25 mg HS PRN PO NAUSEA AND/OR VOMITING; Start 03/07/19 at 00:00 Tizanidine HCl (Zanaflex) 4 mg TID PRN PO spasticity Last administered on 03/09/19 16:03; Admin Dose 4 MG; Start 03/07/19 at 00:00 Acetaminophen (Tylenol Tab) 650 mg Q6H PRN PO MILD PAIN(1-3)OR ELEVATED TEMP; Start 03/07/19 at 00:00 Sodium Chloride 1,000 ml @ 70 mls/hr [id number] IV Last administered on 03/09/19 09:12; Admin Dose 70 MLS/HR; Start 03/07/19 at 00:00 Hydromorphone HCl (Dilaudid) 4 mg Q6H PRN PO SEVERE PAIN LEVEL 7-10 Last administered on 03/09/19 08:48; Admin Dose 4 MG; Start 03/07/19 at 05:30 Hydromorphone HCl (Dilaudid) 0.5 mg Q4H PRN IV SEVERE PAIN LEVEL 7-10 Last administered on 03/09/19 12:50; Admin Dose 0.5 MG; Start 03/07/19 at 15:30 Cefepime HCl 50 ml @ 100 mls/hr Q12 IVPB Last administered on 03/09/19 08:42; Admin Dose 100 MLS/HR; Start 03/07/19 at 16:00 Enoxaparin Sodium (Lovenox) 40 mg DAILY SC Last administered on 03/09/19 08:46; Admin Dose 40 MG; Start 03/09/19 at 09:00 Ferric Sodium Gluconate Complex 125 mg/Sodium Chloride 110 ml @ 110 mls/hr DAILY@1300 IVPB Last administered on 03/09/19 16:03; Admin Dose 110 MLS/HR; Start 03/09/19 at 16:00; Stop 03/13/19 at 13:59 JENNIFER RIVERA Mar 09, 2019 17:37
[2019-03-09 20:52] VITALS: BP 110/74; PULSE 98; RESP 18
[2019-03-09] MEDS: AMITRIPTYLINE 10 MG TAB PO SCH (21:17)
[2019-03-09] MEDS: BALSAM PERU/CASTOR OIL 60 GM TUBE TOP SCH (21:24)
[2019-03-10 00:34] VITALS: BP 115/79; PULSE 91; RESP 20
[2019-03-10] MEDS: HYDROmorphONE 0.5 MG/0.5 ML SYG IV PRN ×4 (01:39→14:21)
[2019-03-10] MEDS: DIAZEPAM 5 MG TAB PO PRN ×2 (01:51→09:04)
[2019-03-10] MEDS: HYDROmorphONE 4 MG TAB PO PRN ×3 (03:35→16:16)
[2019-03-10 05:17] VITALS: BP 118/78; PULSE 95; RESP 18
[2019-03-10] MEDS: PANTOPRAZOLE (EC) 40 MG TAB PO SCH (05:53)
[2019-03-10 08:16] VITALS: BP 149/90; PULSE 93; RESP 20
[2019-03-10] MEDS: BALSAM PERU/CASTOR OIL 60 GM TUBE TOP SCH ×2 (08:51→21:14)
[2019-03-10] MEDS: CEFEPIME 1GM/50 ML (PMX) 50 ML IVPB SCH (08:52)
[2019-03-10] MEDS: AMIODARONE 200 MG TAB PO SCH ×2 (08:52→21:09)
[2019-03-10] MEDS: MIDODRINE 5 MG TAB PO SCH (09:00)
[2019-03-10] MEDS: ENOXAPARIN 40 MG/0.4 ML SYG SC SCH (09:02)
[2019-03-10] MEDS: CHOLECALCIFEROL 2,000 UNIT CAP PO SCH (11:17)
[2019-03-10 11:35] VITALS: BP 126/77; PULSE 94; RESP 20
[2019-03-10] MEDS: SOD FERRIC GLUC COMPLX 125 MG in SOD CHLORIDE 0.9% 100 ML IVPB SCH (12:07)
--- NOTE | 2019-03-10 12:55 | CONS ---
Consultation Date/Type/Reason Admit Date/Time Mar 06, 2019 at 20:22 Initial Consult Date Type of Consult SUBJECTIVE: Pt is sleeping. No acute events over night. NO fevers. VS: stable T: 98.8 LABS: Reviewed. WBC- 4.6 Microbiology: Blood culture negative urine cultures growing Proteus mirabilis URINE CULTURE Final Organism 1 PROTEUS MIRABILIS COLONY COUNT >100,000 CFU/ml P. MIRAB M.I.C. RX --------- --- AMPICILLIN >=32 R CEFOTAXIME S CIPROFLOXACIN >=4 R GENTAMICIN <=1 S LEVOFLOXACIN >=8 R NITROFURANTOIN 128 R TOBRAMYCIN <=1 S TRIMETHOPRIM/SULFAMETHOXAZOLE >=320 R ANTBX: Cefepime Chest x-ray on admission revealed basilar atelectasis Physical examination: GEN: Chronically ill appearing wasted middle-aged man who is in no distress. HENT: Head atraumatic normocephalic; neck is supple PULM: chest rise symmetrical breath sounds clear. Heart: S1-S2. Abdomen soft bowel sounds present. Extremities wasted contracted Assessment: 1. Sepsis, resolving 2. Recurrent UTI 3. Incomplete quadriplegia 4. Dysphagia. 5. Chronic pain syndrome Plan: Pt is stable. Continue current IV antibiotics. Date/Time of Note DATE: 03/10/19 TIME: 12:55 Exam/Review of Systems Exam Vitals Vital Signs Date Temp Pulse Resp B/P (MAP) Pulse Ox O2 O2 Flow FiO2 Time Delivery Rate 03/10/19 98.8 94 20 126/77 99 Room Air 11:35 (93) Intake and Output 03/09/19 03/09/19 03/10/19 1515:00 23:00 07:00 IntakeIntake Total 290 ml 565 ml OutputOutput Total 600 ml 650 ml BalanceBalance -310 ml -85 ml Results Result Diagram: 03/10/19 0529 03/10/19 0529 Results 24hrs Laboratory Tests Test 03/10/19 05:29 White Blood Count 4.6 #L Red Blood Count 3.04 L Hemoglobin 9.1 L Hematocrit 27.7 L Mean Corpuscular Volume 91.1 Mean Corpuscular Hemoglobin 29.9 Mean Corpuscular Hemoglobin Concent 32.9 Red Cell Distribution Width 14.7 H Platelet Count 256 Mean Platelet Volume 9.1 Immature Granulocytes % 0.400 Neutrophils % 64.3 Lymphocytes % 20.4 Monocytes % 13.3 H Eosinophils % 0.9 Basophils % 0.7 Nucleated Red Blood Cells % 0.0 Immature Granulocytes # 0.020 Neutrophils # 3.0 Lymphocytes # 0.9 Monocytes # 0.6 Eosinophils # 0.0 Basophils # 0.0 Nucleated Red Blood Cells # 0.0 Sodium Level 140 Potassium Level 3.4 L Chloride Level 109 Carbon Dioxide Level 19 L Anion Gap 12 Blood Urea Nitrogen 8 Creatinine 0.30 L Est Glomerular Filtrat Rate mL/min > 60 Glucose Level 88 Calcium Level 9.3 Medications Medication Current Medications Amiodarone HCl (Cordarone) 200 mg BID PO Last administered on 03/10/19 08:52; Admin Dose 200 MG; Start 03/07/19 at 09:00 Amitriptyline HCl (Elavil) 10 mg HS PO Last administered on 03/09/19 21:17; Admin Dose 10 MG; Start 03/07/19 at 21:00 Cholecalciferol (Vitamin D) 4,000 unit DAILY PO Last administered on 03/10/19 11:17; Admin Dose 4,000 UNIT; Start 03/07/19 at 09:00 Diazepam (Valium) 5 mg Q6H PRN PO ANXIETY Last administered on 03/10/19 09:04; Admin Dose 5 MG; Start 03/07/19 at 00:00 Ondansetron HCl (Zofran Tab) 4 mg Q6H PRN PO NAUSEA AND/OR VOMITING Last administered on 03/08/19 05:49; Admin Dose 4 MG; Start 03/07/19 at 00:00 Midodrine (Proamatine) 5 mg DAILY PO Last administered on 03/09/19 08:42; Admin Dose 5 MG; Start 03/07/19 at 09:00 Pantoprazole (Protonix Tab) 40 mg DAILY@06 PO Last administered on 03/10/19 05:53; Admin Dose 40 MG; Start 03/07/19 at 06:00 Promethazine HCl (Phenergan) 25 mg HS PRN PO NAUSEA AND/OR VOMITING; Start 03/07/19 at 00:00 Tizanidine HCl (Zanaflex) 4 mg TID PRN PO spasticity Last administered on 03/09/19 21:37; Admin Dose 4 MG; Start 03/07/19 at 00:00 Acetaminophen (Tylenol Tab) 650 mg Q6H PRN PO MILD PAIN(1-3)OR ELEVATED TEMP; Start 03/07/19 at 00:00 Hydromorphone HCl (Dilaudid) 4 mg Q6H PRN PO SEVERE PAIN LEVEL 7-10 Last adm inistered on 03/10/19at 12:02; Admin Dose 4 MG; Start 03/07/19 at 05:30 Hydromorphone HCl (Dilaudid) 0.5 mg Q4H PRN IV SEVERE PAIN LEVEL 7-10 Last administered on 03/10/19 10:05; Admin Dose 0.5 MG; Start 03/07/19 at 15:30 Cefepime HCl 50 ml @ 100 mls/hr Q12 IVPB Last administered on 03/10/19 08:52; Admin Dose 100 MLS/HR; Start 03/07/19 at 16:00 Enoxaparin Sodium (Lovenox) 40 mg DAILY SC Last administered on 03/10/19 09:02; Admin Dose 40 MG; Start 03/09/19 at 09:00 Ferric Sodium Gluconate Complex 125 mg/Sodium Chloride 110 ml @ 110 mls/hr DAILY@1300 IVPB Last administered on 03/10/19 12:07; Admin Dose 110 MLS/HR; Start 03/09/19 at 16:00; Stop 03/13/19 at 13:59 JENNIFER RIVERA Mar 10, 2019 12:55
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
[2019-03-10] MEDS ORDERED: POTASSIUM CHLORIDE 20 MEQ POWDER FOR ORAL SOLN PO ONE (13:00)
--- NOTE | 2019-03-10 13:02 | PDOCDIS ---
Discharge Instructions DIAGNOSIS Discharge Diagnosis UTI CONDITION [id number] Patient Condition: [id number] Stable HOME CARE INSTRUCTIONS: [id number] Diet Instructions: [id number] Regular ACTIVITY: [id number] Activity Restrictions: [id number] Slowly Increase Activity Rest between Activity Avoid heavy lifting FOLLOW UP/APPOINTMENTS Follow-up Plan home care for Ferrlicit IV daily until 03/13/2019 and IV antibiotic VCEfepime BID until 03/14/2019 LUZ DOMÍNGUEZ Mar 10, 2019 13:02
--- NOTE | 2019-03-10 13:34 | PN ---
Date/Time of Note Date/Time of Note DATE: 03/10/19 TIME: 13:30 Assessment/Plan VTE Prophylaxis Risk score (from Ns)>0 risk: 2 SCD applied (from Ns): Yes Pharmacological prophylaxis: LMWH Lines/Catheters IV Catheter Type (from Nrs): Saline Lock Assessment/Plan Hospital Course 1. Sepsis, secondary to urinary tract infection with hypotension, tachycardia. 2. 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 3. Hyponatremia, likely secondary to dehydration, nausea. 4. Chronic pain control. 5. History of recurrent UTIs in the past. 6. Incomplete quadriplegia. 7. Hypertension. 8. Psychiatric disorder. 9. Autonomic dysreflexia. 10. Bedbound state. 11. Gastroesophageal reflux disease. 12. 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 Result Diagram: 03/10/19 0529 03/10/19 0529 Results 24hrs Laboratory Tests Test 03/10/19 05:29 White Blood Count 4.6 #L Red Blood Count 3.04 L Hemoglobin 9.1 L Hematocrit 27.7 L Mean Corpuscular Volume 91.1 Mean Corpuscular Hemoglobin 29.9 Mean Corpuscular Hemoglobin Concent 32.9 Red Cell Distribution Width 14.7 H Platelet Count 256 Mean Platelet Volume 9.1 Immature Granulocytes % 0.400 Neutrophils % 64.3 Lymphocytes % 20.4 Monocytes % 13.3 H Eosinophils % 0.9 Basophils % 0.7 Nucleated Red Blood Cells % 0.0 Immature Granulocytes # 0.020 Neutrophils # 3.0 Lymphocytes # 0.9 Monocytes # 0.6 Eosinophils # 0.0 Basophils # 0.0 Nucleated Red Blood Cells # 0.0 Sodium Level 140 Potassium Level 3.4 L Chloride Level 109 Carbon Dioxide Level 19 L Anion Gap 12 Blood Urea Nitrogen 8 Creatinine 0.30 L Est Glomerular Filtrat Rate mL/min > 60 Glucose Level 88 Calcium Level 9.3 Subjective 24 Hr Interval Summary Constitutional: improved Musculoskeletal: back pain, bone/joint pain Exam/Review of Systems Exam Vitals Vital Signs Date Temp Pulse Resp B/P (MAP) Pulse Ox O2 O2 Flow FiO2 Time Delivery Rate 03/10/19 98.8 94 20 126/77 99 Room Air 11:35 (93) Intake and Output 03/09/19 03/09/19 03/10/19 1515:00 23:00 07:00 IntakeIntake Total 290 ml 565 ml OutputOutput Total 600 ml 650 ml BalanceBalance -310 ml -85 ml Constitutional: alert, oriented Head: normocephalic Eyes: nl conjunctiva Neck: supple Respiratory: diminished breath sounds Cardiovascular: regular rate and rhythm Gastrointestinal: soft, other (colostomy and illeostomy) Results Results 24hrs Laboratory Tests Test 03/10/19 05:29 White Blood Count 4.6 #L Red Blood Count 3.04 L Hemoglobin 9.1 L Hematocrit 27.7 L Mean Corpuscular Volume 91.1 Mean Corpuscular Hemoglobin 29.9 Mean Corpuscular Hemoglobin Concent 32.9 Red Cell Distribution Width 14.7 H Platelet Count 256 Mean Platelet Volume 9.1 Immature Granulocytes % 0.400 Neutrophils % 64.3 Lymphocytes % 20.4 Monocytes % 13.3 H Eosinophils % 0.9 Basophils % 0.7 Nucleated Red Blood Cells % 0.0 Immature Granulocytes # 0.020 Neutrophils # 3.0 Lymphocytes # 0.9 Monocytes # 0.6 Eosinophils # 0.0 Basophils # 0.0 Nucleated Red Blood Cells # 0.0 Sodium Level 140 Potassium Level 3.4 L Chloride Level 109 Carbon Dioxide Level 19 L Anion Gap 12 Blood Urea Nitrogen 8 Creatinine 0.30 L Est Glomerular Filtrat Rate mL/min > 60 Glucose Level 88 Calcium Level 9.3 Medications Medication Current Medications Amiodarone HCl (Cordarone) 200 mg BID PO Last administered on 03/10/19at 08:52; Admin Dose 200 MG; Start 03/07/19 at 09:00 Amitriptyline HCl (Elavil) 10 mg HS PO Last administered on 03/09/19at 21:17; Admin Dose 10 MG; Start 03/07/19 at 21:00 Cholecalciferol (Vitamin D) 4,000 unit DAILY PO Last administered on 03/10/19at 11:17; Admin Dose 4,000 UNIT; Start 03/07/19 at 09:00 Diazepam (Valium) 5 mg Q6H PRN PO ANXIETY Last administered on 03/10/19at 09:04; Admin Dose 5 MG; Start 03/07/19 at 00:00 Ondansetron HCl (Zofran Tab) 4 mg Q6H PRN PO NAUSEA AND/OR VOMITING Last administered on 03/08/19 05:49; Admin Dose 4 MG; Start 03/07/19 at 00:00 Midodrine (Proamatine) 5 mg DAILY PO Last administered on 03/09/19 08:42; Admin Dose 5 MG; Start 03/07/19 at 09:00 Pantoprazole (Protonix Tab) 40 mg DAILY@06 PO Last administered on 03/10/19 05:53; Admin Dose 40 MG; Start 03/07/19 at 06:00 Promethazine HCl (Phenergan) 25 mg HS PRN PO NAUSEA AND/OR VOMITING; Start 03/07/19 at 00:00 Tizanidine HCl (Zanaflex) 4 mg TID PRN PO spasticity Last administered on 03/09/19 21:37; Admin Dose 4 MG; Start 03/07/19 at 00:00 Acetaminophen (Tylenol Tab) 650 mg Q6H PRN PO MILD PAIN(1-3)OR ELEVATED TEMP; Start 03/07/19 at 00:00 Hydromorphone HCl (Dilaudid) 4 mg Q6H PRN PO SEVERE PAIN LEVEL 7-10 Last administered on 03/10/19 12:02; Admin Dose 4 MG; Start 03/07/19 at 05:30 Hydromorphone HCl (Dilaudid) 0.5 mg Q4H PRN IV SEVERE PAIN LEVEL 7-10 Last administered on 03/10/19 10:05; Admin Dose 0.5 MG; Start 03/07/19 at 15:30 Cefepime HCl 50 ml @ 100 mls/hr Q12 IVPB Last administered on 03/10/19 08:52; Admin Dose 100 MLS/HR; Start 03/07/19 at 16:00 Enoxaparin Sodium (Lovenox) 40 mg DAILY SC Last administered on 03/10/19 09:02; Admin Dose 40 MG; Start 03/09/19 at 09:00 Ferric Sodium Gluconate Complex 125 mg/Sodium Chloride 110 ml @ 110 mls/hr DAILY@1300 IVPB Last administered on 03/10/19 12:07; Admin Dose 110 MLS/HR; Start 03/09/19 at 16:00; Stop 03/13/19 at 13:59 LUZ DOMÍNGUEZ Mar 10, 2019 13:34
[2019-03-10 15:39] VITALS: BP 129/91; PULSE 92; RESP 20
[2019-03-10 20:23] VITALS: BP 118/67; PULSE 97; RESP 16
[2019-03-10] MEDS ORDERED: CEFEPIME HCL 1 GM VIAL IM ONE (21:00)
[2019-03-10] MEDS: AMITRIPTYLINE 10 MG TAB PO SCH (21:09)
[2019-03-10] MEDS: CEFEPIME HCL 1 GM VIAL IM SCH (21:13)
[2019-03-10] MEDS: HYDROmorphONE 0.5 MG/0.5 ML SYG SC PRN (21:15)
[2019-03-10] MEDS: TIZANIDINE 4 MG TAB PO PRN (21:29)
[2019-03-11 00:17] VITALS: BP 115/64; PULSE 66; RESP 18
[2019-03-11] MEDS: HYDROmorphONE 0.5 MG/0.5 ML SYG SC PRN ×3 (02:27→14:36)
[2019-03-11] MEDS: DIAZEPAM 5 MG TAB PO PRN ×2 (02:36→16:16)
[2019-03-11 04:14] VITALS: BP 124/59; PULSE 78; RESP 18
[2019-03-11] MEDS: TIZANIDINE 4 MG TAB PO PRN ×2 (05:43→11:38)
[2019-03-11] MEDS: PANTOPRAZOLE (EC) 40 MG TAB PO SCH (05:43)
[2019-03-11 07:37] VITALS: BP_SYST 118; BP_SYST 127; BP_DIAS 71; BP_DIAS 75; PULSE 100; PULSE 78; RESP 18
[2019-03-11] MEDS: CHOLECALCIFEROL 2,000 UNIT CAP PO SCH (08:37)
[2019-03-11] MEDS: MIDODRINE 5 MG TAB PO SCH (08:37)
[2019-03-11] MEDS: AMIODARONE 200 MG TAB PO SCH (08:37)
[2019-03-11] MEDS: ENOXAPARIN 40 MG/0.4 ML SYG SC SCH (08:41)
[2019-03-11] MEDS: BALSAM PERU/CASTOR OIL 60 GM TUBE TOP SCH (09:00)
[2019-03-11] MEDS: CEFEPIME HCL 1 GM VIAL IM SCH (10:36)
[2019-03-11 11:41] VITALS: BP 122/82; PULSE 86; RESP 18
--- NOTE | 2019-03-11 12:24 | CONS ---
Assessment/Plan Assessment/Plan Hospital Course (Demo Recall) No acute events overnight patient is alert eating lunch no fevers overnight Microbiology: Blood culture negative urine cultures growing Proteus mirabilis Chest x-ray on admission revealed basilar atelectasis Physical examination: Chronically ill appearing wasted middle-aged man who is in no distress. Head atraumatic normocephalic neck is supple chest rise symmetrical breath sounds clear. Heart: S1-S2. Abdomen soft bowel sounds present. Extremities wasted contracted Assessment: 1. Sepsis, resolving 2. Recurrent UTI 3. Incomplete quadriplegia 4. Dysphagia. 5. Chronic pain syndrome Plan: Remains stable not convinced that patient have true UTI most likely it was colonized, okay discharge home off antibiotics Discussed with patient and his father at bedside Consultation Date/Type/Reason Admit Date/Time Mar 06, 2019 at 20:22 Initial Consult Date Type of Consult id Date/Time of Note DATE: 03/11/19 TIME: 12:22 Exam/Review of Systems Exam Vitals Vital Signs Date Temp Pulse Resp B/P (MAP) Pulse Ox O2 O2 Flow FiO2 Time Delivery Rate 03/11/19 98.0 86 18 122/82 98 11:41 (95) 03/10/19 Room Air 15:39 Intake and Output 03/10/19 03/10/19 03/11/19 1515:00 23:00 07:00 IntakeIntake Total 170 ml 1070 ml 220 ml OutputOutput Total 500 ml 650 ml BalanceBalance 170 ml 570 ml -430 ml Results Result Diagram: 03/10/19 0529 03/10/19 0529 Medications Medication Current Medications Amiodarone HCl (Cordarone) 200 mg BID PO Last administered on 03/11/19at 08:37; Admin Dose 200 MG; Start 03/07/19 at 09:00 Amitriptyline HCl (Elavil) 10 mg HS PO Last administered on 03/10/19at 21:09; Admin Dose 10 MG; Start 03/07/19 at 21:00 Cholecalciferol (Vitamin D) 4,000 unit DAILY PO Last administered on 03/11/19at 08:37; Admin Dose 4,000 UNIT; Start 03/07/19 at 09:00 Diazepam (Valium) 5 mg Q6H PRN PO ANXIETY Last administered on 03/11/19at 02:36; Admin Dose 5 MG; Start 03/07/19 at 00:00 Ondansetron HCl (Zofran Tab) 4 mg Q6H PRN PO NAUSEA AND/OR VOMITING Last administered on 03/08/19 05:49; Admin Dose 4 MG; Start 03/07/19 at 00:00 Midodrine (Proamatine) 5 mg DAILY PO Last administered on 03/11/19 08:37; A dmin Dose 5 MG; Start 03/07/19 at 09:00 Pantoprazole (Protonix Tab) 40 mg DAILY@06 PO Last administered on 03/11/19 05:43; Admin Dose 40 MG; Start 03/07/19 at 06:00 Promethazine HCl (Phenergan) 25 mg HS PRN PO NAUSEA AND/OR VOMITING; Start 03/07/19 at 00:00 Tizanidine HCl (Zanaflex) 4 mg TID PRN PO spasticity Last administered on 03/11/19 11:38; Admin Dose 4 MG; Start 03/07/19 at 00:00 Acetaminophen (Tylenol Tab) 650 mg Q6H PRN PO MILD PAIN(1-3)OR ELEVATED TEMP; Start 03/07/19 at 00:00 Hydromorphone HCl (Dilaudid) 4 mg Q6H PRN PO SEVERE PAIN LEVEL 7-10 Last administered on 03/10/19 16:16; Admin Dose 4 MG; Start 03/07/19 at 05:30 Enoxaparin Sodium (Lovenox) 40 mg DAILY SC Last administered on 03/11/19 08:41; Admin Dose 40 MG; Start 03/09/19 at 09:00 Ferric Sodium Gluconate Complex 125 mg/Sodium Chloride 110 ml @ 110 mls/hr DAILY@1300 IVPB Last administered on 03/10/19 12:07; Admin Dose 110 MLS/HR; Start 03/09/19 at 16:00; Stop 03/13/19 at 13:59 Hydromorphone HCl (Dilaudid) 0.7 mg Q4H PRN SC SEVERE PAIN LEVEL 7-10 Last administered on 03/11/19 08:36; Admin Dose 0.7 MG; Start 03/10/19 at 17:00 Cefepime HCl (Maxipime) 1 gm Q12 IM Last administered on 7/15/19at 10:36; Admin Dose 1 GM; Start 03/10/19 at 21:00 NOÉ JUNIOR NP Mar 11, 2019 12:24
--- NOTE | 2019-03-11 12:27 | PN ---
Date/Time of Note Date/Time of Note DATE: 03/11/19 TIME: 12:26 Assessment/Plan VTE Prophylaxis Risk score (from Ns)>0 risk: 3 SCD applied (from Ns): Yes Pharmacological prophylaxis: NA/contraindicated Pharm contraindication: low risk/ambulating Lines/Catheters IV Catheter Type (from Nrsg): Saline Lock Assessment/Plan Assessment/Plan 1. Sepsis, secondary to urinary tract infection with hypotension, tachycardia. 2. 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 3. Hyponatremia, likely secondary to dehydration, nausea. 4. Chronic pain control. 5. History of recurrent UTIs in the past. 6. Incomplete quadriplegia. 7. Hypertension. 8. Psychiatric disorder. 9. Autonomic dysreflexia. 10. Bedbound state. 11. Gastroesophageal reflux disease. 12. Normocytic hypochromic anemia Assessment/Plan -ID per them patient does not need any more IV antibiotics the urine culture was probably colonized okay to discharge home off antibiotics dc home today with the home health Result Diagram: 03/10/19 0529 03/10/19 0529 Subjective 24 Hr Interval Summary Free Text/Dictation Doing well. Exam/Review of Systems Exam Vitals Vital Signs Date Temp Pulse Resp B/P (MAP) Pulse Ox O2 O2 Flow FiO2 Time Delivery Rate 03/11/19 98.0 86 18 122/82 98 11:41 (95) 03/10/19 Room Air 15:39 Intake and Output 03/10/19 03/10/19 03/11/19 1515:00 23:00 07:00 IntakeIntake Total 170 ml 1070 ml 220 ml OutputOutput Total 500 ml 650 ml BalanceBalance 170 ml 570 ml -430 ml Exam Constitutional: alert, oriented Head: normocephalic Eyes: nl conjunctiva Neck: supple Respiratory: diminished breath sounds Cardiovascular: regular rate and rhythm Gastrointestinal: soft, other (colostomy and illeostomy) Medications Medication Current Medications Amiodarone HCl (Cordarone) 200 mg BID PO Last administered on 03/11/19at 08:37; Admin Dose 200 MG; Start 03/07/19 at 09:00 Amitriptyline HCl (Elavil) 10 mg HS PO Last administered on 03/10/19at 21:09; Admin Dose 10 MG; Start 03/07/19 at 21:00 Cholecalciferol (Vitamin D) 4,000 unit DAILY PO Last administered on 03/11/19 08:37; Admin Dose 4,000 UNIT; Start 03/07/19 at 09:00 Diazepam (Valium) 5 mg Q6H PRN PO ANXIETY Last administered on 03/11/19 02:36; Admin Dose 5 MG; Start 03/07/19 at 00:00 Ondansetron HCl (Zofran Tab) 4 mg Q6H PRN PO NAUSEA AND/OR VOMITING Last administered on 03/08/19 05:49; Admin Dose 4 MG; Start 03/07/19 at 00:00 Midodrine (Proamatine) 5 mg DAILY PO Last administered on 03/11/19 08:37; Admin Dose 5 MG; Start 03/07/19 at 09:00 Pantoprazole (Protonix Tab) 40 mg DAILY@06 PO Last administered on 03/11/19 05:43; Admin Dose 40 MG; Start 03/07/19 at 06:00 Promethazine HCl (Phenergan) 25 mg HS PRN PO NAUSEA AND/OR VOMITING; Start 03/07/19 at 00:00 Tizanidine HCl (Zanaflex) 4 mg TID PRN PO spasticity Last administered on 03/11/19 11:38; Admin Dose 4 MG; Start 03/07/19 at 00:00 Acetaminophen (Tylenol Tab) 650 mg Q6H PRN PO MILD PAIN(1-3)OR ELEVATED TEMP; Start 03/07/19 at 00:00 Hydromorphone HCl (Dilaudid) 4 mg Q6H PRN PO SEVERE PAIN LEVEL 7-10 Last administered on 03/10/19 16:16; Admin Dose 4 MG; Start 03/07/19 at 05:30 Enoxaparin Sodium (Lovenox) 40 mg DAILY SC Last administered on 03/11/19 08:41; Admin Dose 40 MG; Start 03/09/19 at 09:00 Ferric Sodium Gluconate Complex 125 mg/Sodium Chloride 110 ml @ 110 mls/hr DAILY@1300 IVPB Last administered on 03/10/19 12:07; Admin Dose 110 MLS/HR; Start 03/09/19 at 16:00; Stop 03/13/19 at 13:59 Hydromorphone HCl (Dilaudid) 0.7 mg Q4H PRN SC SEVERE PAIN LEVEL 7-10 Last administered on 03/11/19at 08:36; Admin Dose 0.7 MG; Start 03/10/19 at 17:00 Cefepime HCl (Maxipime) 1 gm Q12 IM Last administered on 03/11/19at 10:36; Admin Dose 1 GM; Start 03/10/19 at 21:00 LILLY SIDDIQI MD Mar 11, 2019 12:27
[2019-03-11] MEDS: SOD FERRIC GLUC COMPLX 125 MG in SOD CHLORIDE 0.9% 100 ML IVPB SCH (13:00)
[2019-03-11 16:16] VITALS: BP 129/78; PULSE 87; RESP 18
== END 2019-03-11 17:10 | disposition home health service (06) | DRG 871 ==
LOC: E/R 15:45 → 6WM 20:22
PROVIDERS: ADMIT Internal Medicine Nephrology; ATTEND Internal Medicine Nephrology
DX: A41.9 Sepsis, unspecified organism (principal); G82.54 Quadriplegia, C5-C7 incomplete; N39.0 Urinary tract infection, site not specified; E87.1 Hypo-osmolality and hyponatremia; G89.29 Other chronic pain; Z87.440 Personal history of urinary (tract) infections; I10 Essential (primary) hypertension; F99 Mental disorder, not otherwise specified; G90.4 Autonomic dysreflexia; Z74.01 Bed confinement status; K21.9 Gastro-esophageal reflux disease without esophagitis; Z43.2 Encounter for attention to ileostomy; Z93.3 Colostomy status; V89.2XXS Person injured in unspecified motor-vehicle accident, traffic, sequela; S14.105S Unspecified injury at C5 level of cervical spinal cord, sequela; E86.0 Dehydration; D50.9 Iron deficiency anemia, unspecified
CPT/HCPCS: 71045; 80048; 80053; 81001; 83540; 83605; 83690; 85025; 85610; 85730; 87086; 93005; 96365; 96366; 96375; J0692; J0696; J1170; J1650; J2405; J2916; J3010; J7030